=== PATIENT | female | born 1950 | race Caucasian/White ===

== ENCOUNTER 2024-09-20 20:31 | Emergency (ER) | payer OTHER, SELFPAY ==
[2024-09-20 20:31] VITALS: BP 134/83; PULSE 68; RESP 14; TEMP 37.1; O2SAT 98; BMI 22.3
[2024-09-20 22:31] VITALS: BP 123/80; PULSE 70; RESP 20; O2SAT 97
--- NOTE | 2024-09-20 22:34 | CT_ITS ---
PROCEDURE: BRAIN/HEAD WITHOUT CONTRAST 09/20/2024 REASON FOR EXAM: ATAXIA TECHNIQUE: BRAIN/HEAD WITHOUT CONTRAST Coronal and Sagittal reconstruction series were provided. One or more dose reduction techniques were used (e.g., Automated exposure control, adjustment of the mA and/or kV according to patient size, use of iterative reconstruction technique. RADIATION DOSE SUMMARY: CTDlvol: 45.0 mGy DLP: 830 mGycm COMPARISON: None FINDINGS: Brain: No acute intracranial hemorrhage, mass effect, or midline shift. Low density in the periventricular white matter suggests mild chronic small vessel ischemic changes. Basal ganglia calcifications. CSF Spaces: Mild generalized cerebral atrophy Sinuses/Mastoids: Opacification with central calcifications in the left maxillary sinus. No mastoid effusion. Bones: Unremarkable CT/Brain/Head without Contrast IMPRESSION: 1. No acute intracranial abnormality. 2. Left maxillary sinus disease with central calcifications, as could be seen with fungal etiology. Reading Location: [id number]
--- NOTE | 2024-09-20 22:34 | CT_ITS ---
PROCEDURE: ABDOMEN/PELVIS WITHOUT CONT 09/20/2024 REASON FOR EXAM: LEFT FLANK PAIN TECHNIQUE: ABDOMEN/PELVIS WITHOUT CONT Noncontrast technique limits evaluation of the abdominal and pelvic viscera. Coronal and Sagittal reconstruction series were provided. One or more dose reduction techniques were used (e.g., Automated exposure control, adjustment of the mA and/or kV according to patient size, use of iterative reconstruction technique). CTDIvol: 17.0 mGy DLP: 690 mGy-cm COMPARISON: None FINDINGS: Lung bases: Aortic valvular calcification. Bibasilar atelectasis. Liver: Unremarkable Gallbladder: Unremarkable for degree of distention Spleen: Unremarkable Pancreas: Unremarkable Adrenals: Unremarkable Kidneys: No hydronephrosis. There are punctate nonobstructing stones in the right kidney measuring up to 2 mm in size. Ureters: Poorly visualized, without stone identified. Bladder: Unremarkable Reproductive Organs: Unremarkable Bowel: No evidence of obstruction or inflammation on this limited noncontrast evaluation. Visualized portions of the appendix are unremarkable. Lymph nodes: No suspicious lymph node enlargement. Vasculature: Mild diffuse atherosclerotic calcifications are noted. Bones: Degenerative changes of the spine. Grade 1 anterolisthesis of L3 on L4. Soft tissues: There is a lipoma in the proximal right thigh, within or adjacent to the quadriceps musculature. CT/Abdomen/Pelvis without Cont IMPRESSION: Punctate nonobstructing stones in the right kidney measuring up to 2 mm. Other kumar there is no evidence of an acute intra-abdominal abnormality on this limited noncontrast exam. Reading Location: [id number]
[2024-09-20 22:35] VITALS: BP 112/72; PULSE 60; RESP 18; O2SAT 99
--- NOTE | 2024-09-20 22:35 | EKG12_ITS ---
Test Reason : DYSRHYTHMIA Blood Pressure : */* mmHG Vent. Rate : 65 BPM Atrial Rate : 65 BPM P-R Int : 220 ms QRS Dur : 80 ms QT Int : 388 ms P-R-T Axes : 71 50 59 degrees QTcB Int : 403 ms Sinus rhythm with 1st degree A-V block Otherwise normal ECG Confirmed by HAI ESTRADA, NANCY ([id number]), food expeditor LUCIANO GAMBLE ([id number]) on 09/21/2024 11:28:13 AM Referred By: Confirmed By: NANCY VALLES MD
--- NOTE | 2024-09-20 22:36 | EDS_ITS ---
HPI History of Present Illness Chief Complaint: General Illness Informant: patient and family Narrative Narrative: 73-year-old female states she has been feeling poorly and weak for the past 2-3 days although it has varied. It started 2 days ago, she states she was outside in the heat stacking wood and started feeling poorly and so she thought she was overheated. They have not had any air conditioning until last night they finally bought a window unit to put in their house, temperatures were in the mid 90s last day or 2. She said yesterday she felt pretty good, she drank fluid, she had some decreased urination each time she went in volume, but still uri nating throughout the day every day, and not dark. She has had no chest or abdominal pain until the last hour or 2 while waiting here in the ER she developed some left-sided abdominal discomfort that is relatively mild. She vomited once prior to coming here, did not have any abdominal pain when that occurred, but states that off-and-on she has been feeling off balance when she walks. No headache, no vision changes or visual field cuts or diplopia, or eye pain. She states this is just been in the past 2 or 3 days. She was walking fine earlier today and tonight when she is feeling bad, she is off balance again. She denies feeling any dizziness in her head. No earache or hearing changes. No neck pain, back pain, numbness or weakness in an arm or leg. She states she has not had a lot of fluids today, maybe a quart of water. PFSH PFSH Medical History no medical history no medical history Home Medications ?Medication ?Instructions ?Recorded ?Last Taken ?Type ondansetron 8 mg disintegrating 8 mg PO Q8H PRN nausea and 09/21/24 Unknown Rx tablet vomiting #12 tabs Allergy/AdvReac Type Severity Reaction Status Date / Time No Known Allergies Allergy Verified 09/20/24 20:32 Surgical History no surgical history Social History Smoking Status: Never smoker ROS ROS ED Constitutional Constitutional ED: Reports fatigue and weakness; Denies chills, fever(s) or sweats Eyes Eyes: Denies blurry vision, change in vision or diplopia ENT ENT ED: Reports disequillibrium; Denies abnormal hearing, dizziness, ear pain, facial pain, hearing loss, rhinorrhea, sore throat or tinnitus Cardiovascular Cardiovascular: Denies chest pain, palpitations or racing heartbeat Respiratory/Chest Respiratory/Chest: Denies cough or dyspnea Gastrointestinal Gastrointestinal: Reports abdominal pain, nausea and vomiting; Denies diarrhea Genitourinary Genitourinary ED: Denies dysuria or hematuria Musculoskeletal Musculoskeletal: Denies back pain or neck pain Integumentary Denies abscess or rash Neurologic Neurologic: Reports as per HPI and abnormal gait; Denies headache(s), paresthesias or weakness Psychiatric Psychiatric: Denies anxiety or suicidal thoughts EXAM Physical Exam Const Vital Signs: 09/20/24 20:31 09/20/24 21:00 09/20/24 22:31 Temperature 98.7 F Temperature Source Oral Pulse Rate 68 70 Pulse Rate [Lying] Pulse Rate [Sitting (for 1 minute prior to obtaining)] Pulse Rate [Standing (for 1 minute prior to obtaining)] Respiratory Rate 14 20 H Respiratory Effort Normal Non-Labored Respiratory Pattern Normal Blood Pressure 134/83 H 123/80 H Blood Pressure [Lying] Blood Pressure [Sitting (for 1 minute prior to obtaining)] Blood Pressure [Standing (for 1 minute prior to obtaining)] Blood Pressure Mean 100 94 Blood Pressure Mean [Lying] Blood Pressure Mean [Sitting (for 1 minute prior to obtaining)] Blood Pressure Mean [Standing (for 1 minute prior to obtaining)] Pulse Ox 98 97 Oxygen Delivery Method 09/20/24 22:35 09/21/24 00:17 09/21/24 00:19 Temperature Temperature Source Pulse Rate 60 59 L Pulse Rate [Lying] 60 Pulse Rate [Sitting (for 1 minute prior to obtaining)] 67 Pulse Rate [Standing (for 1 minute prior to obtaining)] 71 Respiratory Rate 18 22 H Respiratory Effort Respiratory Pattern Blood Pressure 112/72 120/75 Blood Pressure [Lying] 118/73 Blood Pressure [Sitting (for 1 minute prior to obtaining)] 127/77 H Blood Pressure [Standing (for 1 minute prior to obtaining)] 113/74 Blood Pressure Mean 85 90 Blood Pressure Mean [Lying] 88 Blood Pressure Mean [Sitting (for 1 minute prior to obtaining)] 93 Blood Pressure Mean [Standing (for 1 minute prior to obtaining)] 87 Pulse Ox 99 100 Oxygen Delivery Method Room Air Room Air 09/21/24 01:23 Temperature Temperature Source Pulse Rate 64 Pulse Rate [Lying] Pulse Rate [Sitting (for 1 minute prior to obtaining)] Pulse Rate [Standing (for 1 minute prior to obtaining)] Respiratory Rate 18 Respiratory Effort Respiratory Pattern Blood Pressure 115/76 Blood Pressure [Lying] Blood Pressure [Sitting (for 1 minute prior to obtaining)] Blood Pressure [Standing (for 1 minute prior to obtaining)] Blood Pressure Mean 89 Blood Pressure Mean [Lying] Blood Pressure Mean [Sitting (for 1 minute prior to obtaining)] Blood Pressure Mean [Standing (for 1 minute prior to obtaining)] Pulse Ox 98 Oxygen Delivery Method Room Air Positive well nourished and well developed General Appearance ED: well developed and NAD HEENT Reports moist mucous membranes normocephalic and atraumatic Eyes PERRL and EOMs intact bilaterally Eyes Narrative: Normal visual field exam Neck full ROM and supple Chest Wall inspection of chest normal and palpation of chest normal Resp normal respiratory effort and clear to auscultation bilaterally Cardio regular rate, regular rhythm and no murmurs Rate: Negative for tachycardic GI non-tender and non-distended GI Narrative: Mild left sided abdominal pain not reproducible and without any tenderness or pulsatile mass. Auscultation: normoactive bowel sounds Palpation: soft Back/Spine no CVA tenderness General Back: other FROM Extremity normal to inspection Extremity Narrative: Intact distal pulses x 4 General Extremety ED: Negative for edema, pulses abnormal or tenderness General Extremity: Negative for edema or pulses abnormal Neuro oriented x3, CN's II-XII intact bilaterally and no sensory deficits noted Neuro Narrative: Patient is mildly ataxic with walking. She can make it across and down the [place] without any significant assistance, catches herself. She does not have a shuffling gait. She has normal central and peripheral neurologic exams, and normal speech. She is somewhat ataxic with regards to the right lower extremity, gaining her 1 on the NIHSS, but she otherwise score is 0. Sensorium / Orientation: awake and alert Motor Exam: strength 5/5 throughout Psych mental status grossly normal Skin no rashes or lesions noted and no wounds MDM MDM MDM Narrative Medical decision making narrative: Patient has some fairly nonspecific generalized symptoms as well as ataxia which is unusual. For these latter reasons I obtained a CT of the head/brain, I revi ewed the images and the report which I agree with, it shows no acute [employer] abnormality but it does show some maxillary sinus abnormalities that may indicate a fungal sinusitis. There are calcifications, and this appears chronic. I suggest likely incidental, and should not be causing her ataxia. She does not have symptoms of an acute bacterial sinusitis. With regards to her labs they are all normal, white blood count is 6, 2 sequential troponin measurements are normal along with an EKG that is normal except for first-degree AV block, liver enzymes and lipase are unremarkable except for a slightly abnormal AST at 36 which is very nonspecific. Urinalysis shows some proteinuria but is otherwise unremarkable negative for infection. Two-view chest x-ray negative for pneumonia on my interpretation of radiology was in agreement. Also sent her for a CT of the abdomen/pelvis, which shows no acute ureterolithiasis or reason for renal/ureteral colic. There are a couple of nonobstructing right kidney stones that are not causing symptoms right now and the CT is negative for any other acute abnormality also. In the meantime she was given IV fluids and some Zofran. On reexamination she is feeling much better and states that her balance felt back to normal. At this time they tell me that the patient had a temperature over 102 last night. She is afebrile here and her vital signs are normal. Differential includes heat illness as well as viral gastritis. For now I think supportive care and staying cool and hydrated is the best plan but I think she can be discharged home to follow-up as an outpatient, I do not think she is having heatstroke as she is alert and oriented x 3. Lab Data Attestation: I reviewed the patient's lab results. Labs: Laboratory Results - last 24 hr 09/20/24 09/20/24 09/21/24 21:10 23:10 00:09 WBC 6.0 RBC 4.10 L Hgb 11.5 L Hct 36.0 L MCV 87.8 MCH 28.0 MCHC 31.9 L RDW Std Deviation 46.2 H RDW Coeff of Tasha 14.3 Plt Count 266 MPV 10.1 Immature Gran % (Auto) 0.300 Neut % (Auto) 77.0 H Lymph % (Auto) 8.2 L Mckenzie % (Auto) 13.8 H Eos % (Auto) 0.2 Baso % (Auto) 0.5 Absolute Neuts (auto) 4.6 Absolute Lymphs (auto) 0.49 L Nucleated RBC % 0 Sodium 133 Potassium 4.2 Chloride 98 Carbon Dioxide 23.8 Anion Gap 12 BUN 13 Creatinine 0.72 Estim Creat Clear Calc 52.58 Est GFR (MDRD) Non-Af 89 BUN/Creatinine Ratio 18.2 Glucose 164 H Calcium 9.0 Total Bilirubin 0.29 AST 36 H ALT 23 Alkaline Phosphatase 81 Troponin T High Sens < 6 Troponin T Hi Sens 2 Hr 6 Total Protein 7.3 Albumin 3.7 Globulin 3.6 Albumin/Globulin Ratio 1.0 Lipase 34 Urine Color Yellow Urine Clarity Clear Urine pH 6.0 Ur Specific Fowler 1.020 Urine Protein 30 H Urine Glucose (UA) Normal Urine Ketones Negative Urine Occult Blood Negative Urine Nitrite Negative Urine Bilirubin Negative Urine Urobilinogen Normal Ur Leukocyte Esterase Negative Urine RBC 0 SEEN Urine WBC 0 SEEN Ur Squamous Epith Cells 0 SEEN Urine Bacteria 1+ Urine Mucus 0 SEEN Radiography Diagnostic Testing: Clinical Impression(s) from Imaging Studies Abdomen/Pelvis CT 09/20/24 22:34 IMPRESSION: Punctate nonobstructing stones in the right kidney measuring up to 2 mm. Otherwise there is no evidence of an acute intra-abdominal abnormality on this limited noncontrast exam. Reading Location: [id number] Brain CT 09/20/24 22:34 IMPRESSION: 1. No acute intracranial abnormality. 2. Left maxillary sinus disease with central calcifications, as could be seen with fungal etiology. Reading Location: [id number] Chest X-Ray 09/20/24 23:15 IMPRESSION: No acute cardiopulmonary abnormality. Reading Location: [facility] Rhythm Strip Rhythm Strip: Sinus Rhythm Rate: 65 Ectopy: None EKG Initial EKG: Attestation: I personally reviewed and interpreted this EKG as follows: Interpretation: Sinus Rhythm and No Acute Injury Pattern Comments: Nml axis & intervals except for first-degree AV block; nml EKG Discharge Plan Triage Chief Complaint: General Illness ED Provider: Bryant Boogie Dx/Rx/DC Orders Clinical Impression: Generalized weakness, Nausea and vomiting, Fever, Intermittent ataxia, Chronic left maxillary sinusitis, Right nephrolithiasis, Left sided abdominal pain of unknown cause Instructions: ED Gastritis (Adult), ED Heat Exhaustion Prescriptions: New ondansetron 8 mg tablet,disintegrating 8 mg PO Q8H PRN (Reason: nausea and vomiting) Qty: 12 0RF Primary Care Provider: Johnson Jauregui Referrals: Zachary Estrada MD [Non-Staff] - As soon as possible Activity Restrictions/Additional Instructions: CT of your abdomen was normal except for some small incidental stones in her right kidney. CT of your brain/head was unremarkable except for what looks like chronic appearing sinusitis of the left maxillary sinus, with some ca lcifications that could be fungal but more testing would be needed to see if that is the case and if it needs to be treated with anything. Follow-up with your doctor. It is possible that your recent symptoms have been related to the stomach flu which is usually viral and will go away on its own, or heat illness. At this time the treatment for both would be the prescription for nausea as needed along with staying cool and drinking plenty of fluids. Print Language: Kiswahili Disposition Disposition: Home, Self Care
[2024-09-20 22:55] LABS: Absolute Lymphocyte Count 0.49 X10^3/uL (0.83-4.51); Absolute Neutrophil Count 4.6 X10^3/uL (2.0-7.7); Basophil# 0.03 X10^3/uL; Basophil% 0.5 % (0-1); Eosinophil# 0.01 X10^3/uL; Eosinophils% 0.2 % (0-5); Hemoglobin 11.5 g/dL (12.0-15.0); Lymphocyte # 0.49 X10^3/ul (0.83-4.51); Lymphocyte % 8.2 % (19-41); Mean Corp Hgb Conc 31.9 g/dL (32-36); Mean Corpuscular Volume 87.8 fL (81-99); Mean Platelet Vol. 10.1 fl (6.2-12.0); Monocyte# 0.83 X10^3/uL; Monocyte% 13.8 % (0-10); NRBC Flagged by Analyzer 0 % (0-5); Neutrophil # 4.63 X10^3/uL (2.7-7.7); POSITIVE DIFFERENTIAL YES; Platelet Count 266 K/mm3 (150-450); RBC Distribution Width CV 14.3 % (11.6-14.6); RBC Distribution Width SD 46.2 fl (35.1-43.9)
[2024-09-20] MEDS: 0.9% Normal Saline (1000mL) 1,000 ML 1000 ML IV (23:02)
[2024-09-20] MEDS: Ondansetron 4 MG/2 ML Vial IV (23:02)
--- NOTE | 2024-09-20 23:15 | RAD_ITS ---
PROCEDURE: CHEST PA AND LATERAL 09/20/2024 REASON FOR EXAM: WEAKNESS TECHNIQUE: CHEST PA AND LATERAL COMPARISON: None FINDINGS: Hardware: None Heart: The heart size is normal. Mediastinum: The mediastinal contour is unremarkable. Aortic atherosclerosis. Lungs: No focal consolidation or pleural effusion. Bones: Degenerative changes are identified within the thoracic spine. RAD/Chest PA and Lateral IMPRESSION: No acute cardiopulmonary abnormality. Reading Location: [id number]
[2024-09-20 23:21] LABS: Troponin T High Sensitivity < 6 ng/L (<=14)
[2024-09-20 23:22] LABS: Mucous, Urine 0 SEEN /hpf (<or=2+); Red Blood Cells-Urine 0 SEEN /hpf (0-5); Squamous Epithelial Cells - UA 0 SEEN /hpf (5-10); White Blood Cells 0 SEEN /hpf (0-5)
[2024-09-20 23:23] LABS: AST(SGOT) 36 U/L (<=31); Alanine Aminotransfer ALT/SGPT 23 U/L (<=34); Albumin, Serum 3.7 g/dL (3.4-4.8); Alkaline Phosphatase 81 U/L (35-104); Anion Gap 12 (5-15); BUN 13 mg/dL (4-19); BUN/Creat Ratio 18.2 RATIO (10-20); Carbon Dioxide 23.8 mmol/L (21.0-32.0); Chloride 98 mmol/L (98-108); Creatinine, Serum 0.72 mg/dL (0.70-1.20); EST Glomerular Filtration Rate 89 (>60); Estimated Creatinine Clearance 52.58 ml/min (50-250); Globulin 3.6 g/dL (2.2-4.2); Glucose 164 mg/dL (70-99); Lipase 34 U/L (13-75); Potassium 4.2 mmol/L (3.3-5.1); Protein, Total 7.3 g/dL (5.9-8.4); Sodium Level 133 mmol/L (133-145); Total Bilirubin 0.29 mg/dL (0.00-1.30)
[2024-09-20 23:33] LABS: Color, Urine Yellow (Yellow); Glucose, Dipstick Normal (Normal); Ketone-Dipstick Negative (Negative); Leukocyte Esterase-Dipstick Negative /ul (Negative); Nitrite-Dipstick Negative (Negative); Occult Blood-Urine Negative /ul (Negative); Protein-Dipstick 30 mg/dl (Negative); Urine Bilirubin Dipstick Negative (Negative); Urine Clarity Clear (Clear); Urine Urobilinogen Normal (Normal)
[2024-09-21 00:17] VITALS: BP 113/74; BP 118/73; BP 127/77; PULSE 60; PULSE 67; PULSE 71
[2024-09-21 00:19] VITALS: BP 120/75; PULSE 59; RESP 22; O2SAT 100
[2024-09-21 00:21] LABS: Bacteria 1+ /hpf (None Seen)
[2024-09-21 01:12] LABS: Troponin T High Sens 2 HR 6 ng/L (<=14)
[2024-09-21 01:23] VITALS: BP 115/76; PULSE 64; RESP 18; O2SAT 98
[2024-09-21 03:00] VITALS: BP 112/68; PULSE 53; RESP 15; O2SAT 100
[2024-09-21 03:02] VITALS: BP 111/79; PULSE 55; RESP 14; TEMP 36.6; O2SAT 100
[2024-09-21 03:21] LABS: Troponin T High Sens 4 HR 7 ng/L (<=14)
== END 2024-09-21 03:16 | disposition home or self-care (01) ==
PROVIDERS: Emergency Provider Emergency Medicine; PCP Physician Assistant Surgical; Visit Provider Emergency Medicine
DX: R53.1 Weakness (principal); R11.2 Nausea with vomiting, unspecified; N20.0 Calculus of kidney; J32.0 Chronic maxillary sinusitis; R50.9 Fever, unspecified; R27.0 Ataxia, unspecified; R10.9 Unspecified abdominal pain
CPT/HCPCS: 70450; 71046; 74176; 80053; 81001; 83690; 84484; 85025; 93005; 96361; 96374; 99285; A4216; J2405

== ENCOUNTER 2024-09-27 13:07 | Observation (INO) | payer OTHER, SELFPAY ==
[2024-09-27 13:08] VITALS: BP 117/75; PULSE 85; RESP 20; TEMP 36.8; O2SAT 98
[2024-09-27 13:13] VITALS: BP 117/75; PULSE 85; RESP 20; TEMP 36.8; O2SAT 98
--- NOTE | 2024-09-27 13:18 | EX.ED.DYSGE1 ---
HPI History of Present Illness Chief Complaint: Fatigue PFSH PFSH Medical History Depression Kidney stones Non-smoker Home Medications ?Medication ?Instructions ?Recorded ?Last Taken ?Type ascorbate calcium (vitamin C) 500 500 mg PO QDAY 09/27/24 09/27/24 History mg tablet aspirin 81 mg tablet,delayed 81 mg PO DAILY 09/27/24 09/26/24 History release (Adult Aspirin Regimen) doxycycline hyclate 100 mg capsule 100 mg PO BID 09/27/24 09/27/24 History multivitamin (Daily Multi-Vitamin 1 tab PO DAILY 09/27/24 09/27/24 History tablet) ondansetron 4 mg disintegrating 4 mg PO Q8H PRN PRN nausea 09/27/24 Unknown History tablet selenium 200 mcg capsule 200 mcg PO DAILY 09/27/24 09/27/24 History zinc acetate 25 mg (zinc) capsule 25 mg PO QDAY 09/27/24 09/27/24 History (Galzin) Allergy/AdvReac Type Severity Reaction Status Date / Time No Known Allergies Allergy Verified 09/27/24 13:08 Social History Smoking Status: Never smoker EXAM Physical Exam Const Vital Signs: 09/27/24 13:08 09/27/24 13:13 09/27/24 13:13 Temperature 98.3 F 98.3 F Temperature Source Oral Oral Pulse Rate 85 85 Respiratory Rate 20 H 20 H Respiratory Effort Normal Respiratory Pattern Normal Blood Pressure 117/75 117/75 Blood Pressure Mean 89 89 Pulse Ox 98 98 Oxygen Delivery Method Room Air Room Air MDM MDM MDM Narrative Medical decision making narrative: HISTORY OF PRESENT ILLNESS: Chief complaint: Diffuse weakness, fatigue 73-year-old female presents with diffuse weakness. Sent by PCP. Notes recent diagnosis of Lyme disease. PCP wants admitted for Lyme disease and poor outpatient improvement in symptoms. m patient notes diffuse weakness. Difficulty with ambulation and concern for risk of falling. She is, by her who states patient not safe at home. States he is not getting better and states PCP thought could be beneficial for you IV antibiotics and to be admitted REVIEW OF SYSTEMS: Pertinent positives: Diffuse weakness Pertinent negatives: Headache, chest pain, shortness breath, cough, fever, urinary complaint PHYSICAL EXAM: Nursing triage notes reviewed, Vital signs reviewed Constitutional: please see mdm HENT: MMM Eyes: Pupils equal round and reactive to light, Extraocular muscles intact Neck: No stridor, no JVD, full neck ROM Lungs: Clear to auscultation, No wheezing or rales. No increased work of breathing, no conversational dyspnea, no accessory muscle use, no nasal flaring. No respiratory distress noted Heart: Regular rate and rhythm, No murmurs, No rubs and No gallops, 2+ distal pulses (radial, femoral, posterior tibial) in all extremities Abdomen: Soft, there is no tenderness, rigidity, rebound or guarding, no obvious peritoneal signs, no palpable pulsatile abdominal masses, no auscultated abdominal bruit : No CVAT Extremities: No edema Neuro: My neuroexam Skin: No rash or lesions noted MEDICAL DECISION MAKING: Chief Complaint: please see HPI External records reviewed: Reviewed ED visit from 09/20/2024. At this visit she received a CT scan of pelvis, CT head of the brain, chest x-ray was also negative. CBC with no cytosis, no anemia, no thrombocytopenia. BMP without evidence of significant electrolyte abnormalities, no anion gap, no acute kidney injury. LFTs show no evidence of hepatobiliary pathology. High-sensitivity troponin is negative, no evidence of myocardial ischemia x 3. Lipase is wnl indicating no pancreatic inflammation. Urinalysis shows no evidence of urinary inflammation suggestive of UTI Reviewed PCP visit from today. Dr. Tobias recommended patient be admitted for IV therapy. Factors affecting care: none Social determinants of health: none History obtained from others: Consults: internal medicine (Dr. Russell) who agreed to admit the patient MDM Narrative: The patient was initially hemodynamically stable, afebrile and nontoxic-appearing. No focal neurologic deficits. No focal cardiopulmonary abnormalities. Abdomen soft and nontender. Patient appears fatigued but not toxic. I considered the following differential diagnosis: CVA, electrolyte disturbance, anemia, dehydration, ACS, disseminated Lyme The patient's history and physical exam not consistent with acute CVA she has nonfocal neuroexam. NIH of 0. No indication for advanced imaging the brain at this time. I obtained a lab workup to further determine if the patient was suffering from a life-threatening etiology. ALL IMAGES (IF OBTAINED) HAVE BEEN PERSONALLY REVIEWED AND INTERPRETED BY MYSELF. EKG normal sinus rhythm rate of 72, normal axis, normal intervals, no STEMI High-sensitivity troponin is negative, no evidence of myocardial ischemia CBC without leukocytosis, severe anemia, no thrombocytopenia. BMP without evidence of significant electrolyte abnormalities, no anion gap, no acute kidney injury. The synthesis of the patient's history, physical exam, labs images suggest no acute life-threatening etiology. I have a low suspicion for disseminated Lyme at this time as patient has no focal neurologic deficits. EKG has normal intervals. Gave empiric ceftriaxone given patient's gait abnormality and need for hospitalization for PT OT possible placement. The patient and/or family, caregivers express understanding. The patient and/or family, caregivers agrees with the plan. Shared decision making: I will have a discussion with the patient and or visitors regarding risk/benefits of further testing or admission. They will be made aware of of the risk/benefits inherent in this decision they will be given the opportunity to voice understanding. Total critical care time today provided was at least 0 minutes. This excludes separately billable procedures. Critical care time (if documented) is secondary to the patient having high probability of clinically significant/life threatening deterioration in the patient's condition which required my urgent intervention. Impression: 1. Fatigue 2. Gait abdomen 3. Lyme disease Dispo: Admit to hospital This note was generated with [facility] ([employer]) dictation software. It may contain incorrect words, spelling, and punctuation that were not noted in review of the chart prior to signing. Lab Data Labs: Laboratory Results - last 24 hr 09/27/24 13:30 WBC 7.9 RBC 4.43 Hgb 12.4 Hct 38.9 MCV 87.8 MCH 28.0 MCHC 31.9 L RDW Std Deviation 44.7 H RDW Coeff of Tasha 13.9 Plt Count 518 H MPV 8.8 Immature Gran % (Auto) 2.800 H Neut % (Auto) 62.3 Lymph % (Auto) 21.6 [place] % (Auto) 9.0 Eos % (Auto) 3.2 Baso % (Auto) 1.1 H Absolute Neuts (auto) 4.9 Absolute Lymphs (auto) 1.71 Nucleated RBC % 0 Sodium 139 Potassium 4.4 Chloride 101 Carbon Dioxide 25.9 Anion Gap 12 BUN 15 Creatinine 0.62 L Est GFR (MDRD) Non-Af 95 BUN/Creatinine Ratio 24.8 H Glucose 121 H Calcium 9.7 Troponin T High Sens 10 D Discharge Plan Triage Chief Complaint: Fatigue ED Provider: Denny Liang Dx/Rx/DC Orders Prescriptions: No Action doxycycline hyclate 100 mg capsule 100 mg PO BID ondansetron 4 mg tablet,disintegrating 4 mg PO Q8H PRN PRN (Reason: nausea) ascorbate calcium (vitamin C) 500 mg tablet 500 mg PO QDAY Galzin 25 mg (zinc) capsule 25 mg PO QDAY selenium 200 mcg capsule 200 mcg PO DAILY multivitamin [Daily Multi-Vitamin] Tablet 1 tab PO DAILY aspirin [Adult Aspirin Regimen] 81 mg tablet,delayed release (DR/EC) 81 mg PO DAILY Primary Care Provider: Stefan Tobias Referrals: Stefan Tobias MD [Primary Care Provider] - Print Language: Panamanian
--- NOTE | 2024-09-27 13:24 | EKG12_ITS ---
Test Reason : ARRYTH Blood Pressure : */* mmHG Vent. Rate : 72 BPM Atrial Rate : 72 BPM P-R Int : 198 ms QRS Dur : 80 ms QT Int : 386 ms P-R-T Axes : 82 43 60 degrees QTcB Int : 422 ms Normal sinus rhythm Normal ECG Confirmed by HAI ESTRADA, NANCY ([id number]), editor [employer] ([id number]) on 09/28/2024 1:37:45 PM Referred By: Confirmed By: NANCY VALLES MD
[2024-09-27 13:40] LABS: Hematocrit 38.9 % (37-47); Hemoglobin 12.4 g/dL (12.0-15.0); Immature Granulocytes Count 0.220 X10^3/uL (0.0-0.0); Mean Corp Hgb Conc 31.9 g/dL (32-36); Mean Corpuscular Volume 87.8 fL (81-99); Mean Platelet Vol. 8.8 fl (6.2-12.0); NRBC Flagged by Analyzer 0 % (0-5); Platelet Count 518 K/mm3 (150-450); RBC Distribution Width CV 13.9 % (11.6-14.6); RBC Distribution Width SD 44.7 fl (35.1-43.9); Red Blood Count 4.43 M/mm3 (4.2-5.4); White Blood Count 7.9 K/mm3 (4.4-11.0)
[2024-09-27] MEDS: Ceftriaxone 2 GM in 0.9% Normal Saline (50mL MB+) 50 ML IV (13:42)
[2024-09-27 14:07] LABS: Anion Gap 12 (5-15); BUN 15 mg/dL (4-19); BUN/Creat Ratio 24.8 RATIO (10-20); Calcium,Total 9.7 mg/dL (7.6-11.0); Carbon Dioxide 25.9 mmol/L (21.0-32.0); Chloride 101 mmol/L (98-108); Glucose 121 mg/dL (70-99); Potassium 4.4 mmol/L (3.3-5.1)
[2024-09-27 14:09] LABS: Troponin T High Sensitivity 10 ng/L (<=14)
[2024-09-27] MEDS: 0.9% Normal Saline (1000mL) 1,000 ML 999 ML IV (14:15)
[2024-09-27 14:40] VITALS: BMI 22.1
--- NOTE | 2024-09-27 14:40 | ED.RN ---
Per Dr. Liang, cancel sepsis screen
--- NOTE | 2024-09-27 14:44 | HP.PCM.HOS_ITS ---
HPI - General HPI Narrative IFEANYI SUAREZ, is a 73 F who presents [facility] Home Medications ?Medication ?Instructions ?Recorded ?Last Taken ?Type ascorbate calcium (vitamin C) 500 500 mg PO QDAY 09/2709/27/24 History mg tablet aspirin 81 mg tablet,delayed 81 mg PO DAILY 09/27/24 0 09/26/24 History release (Adult Aspirin Regimen) doxycycline hyclate 100 mg capsule 100 mg PO BID 09/2709/27/24 History multivitamin (Daily Multi-Vitamin 1 tab PO DAILY 09/2709/27/24 History tablet) ondansetron 4 mg disintegrating 4 mg PO Q8H PRN PRN na usea 09/27/24 Unknown History tablet selenium 200 mcg capsule 200 mcg PO DAILY 09/27/24 History zinc acetate 25 mg (zinc) capsule 25 mg PO QDAY 09/27/24 History (Galzin) Allergy/AdvReac Type Severity Reaction Status Date / Time No Known Allergies Allergy Verified 09/27/24 13:08 Social History Smoking Status: Never smoker Vital Signs Vital Signs Vital Signs: 09/27/24 13:08 09/27/24 13:13 09/27/24 13:13 Temperature 98.3 F 98.3 F Temperature Source Oral Oral Pulse Rate 85 85 Respiratory Rate 20 H 20 H Respiratory Effort Normal Respiratory Pattern Normal Blood Pressure 117/75 117/75 Blood Pressure Mean 89 89 Pulse Ox 98 98 Oxygen Delivery Method Room Air Room Air Weight Weight: 56.7 kg Body Mass Index (BMI) 22.1 Results Lab / Micro Data 09/27/24 13:30 09/27/24 13:30 Labs: Laboratory Results - last 24 hr 09/27/24 13:30: WBC 7.9, RBC 4.43, Hgb 12.4, Hct 38.9, MCV 87.8, MCH 28.0, MCHC 31.9 L, RDW Std Deviation 44.7 H, RDW Coeff of Tasha 13.9, Plt Count 518 H, MPV 8.8, Immature Gran % (Auto) 2.800 H, Neut % (Auto) 62.3, Lymph % (Auto) 21.6, [place] % (Auto) 9.0, Eos % (Auto) 3.2, Baso % (Auto) 1.1 H, Absolute Neuts (auto) 4.9, Absolute Lymphs (auto) 1.71, Nucleated RBC % 0, Sodium 139, Potassium 4.4, Chloride 101, Carbon Dioxide 25.9, Anion Gap 12, BUN 15, Creatinine 0.62 L, Est GFR (MDRD) Non-Af 95, BUN/Creatinine Ratio 24.8 H, Glucose 121 H, Calcium 9.7, T roponin T High Sens 10 D
--- NOTE | 2024-09-27 14:44 | PCM.HP.STD ---
HPI - General General Date of Admission: 09/27/24 Date of Service: 09/27/24 Chief Complaint: Weakness with recent Lyme diagnosis HPI Narrative IFEANYI SUAREZ, is a 73 F who presented to [facility] ED on 09/27/2024 with worsening weakness and recent Lyme diagnosis. Patient is [employer], lives at home with her sister. Typically is very active at baseline. She initially came to our ED on 09/20 with 2 to 3-day history of feeling weak and fatigued. Had extensive workup including CT brain, CT abdomen pelvis, chest x-ray and lab workup that was all essentially unremarkable. She was mildly unsteady on her feet but was able to ambulate, so she was discharged home from the ED. She saw her PCP on Sunday 09/24 and had further lab work done, and according to patient her testing was positive for Lyme disease on Friday. She started p.o. doxycycline on Friday. However, she has continued to be weak and unsteady with ambulation and fears falling, so her PCP recommended she come to the ED today for further evaluation and consideration of IV antibiotics. In the ED she was hemodynamically stable on room air at rest and afebrile. CBC and BMP were fairly benign. EKG showed normal sinus rhythm with no CT interval prolongation or other concerning findings. She had no reported focal neurologic findings. Given her worsening weakness and concern for being safe at home as well as concern for worsening manifestations of Lyme disease, hospitalist was contacted for admission. I saw the patient at bedside in the ED, brother was present. Patient was fatigued appearing but otherwise laying back comfortably in bed, conversing normally and in no acute distress. She had good strength in her upper and lower extremities bilaterally on neurologic exam. She noted that she had been eating and drinking fairly well over the past several days. She denied any specific joint pains or joint erythema or swelling. No other acute concerns currently. [facility] Medical History Depression Kidney stones Non-smoker Home Medications ?Medication ?Instructions ?Recorded ?Last Taken ?Type ascorbate calcium (vitamin C) 500 500 mg PO QDAY 09/27/24 09/27/24 History mg tablet aspirin 81 mg tablet,delayed 81 mg PO DAILY 09/27/24 09/26/24 History release (Adult Aspirin Regimen) doxycycline hyclate 100 mg capsule 100 mg PO BID 09/27/24 09/27/24 History multivitamin (Daily Multi-Vitamin 1 tab PO DAILY 09/27/24 09/27/24 History tablet) ondansetron 4 mg disintegrating 4 mg PO Q8H PRN PRN nausea 09/27/24 Unknown History tablet selenium 200 mcg capsule 200 mcg PO DAILY 09/27/24 09/27/24 History zinc acetate 25 mg (zinc) capsule 25 mg PO QDAY 09/27/24 09/27/24 History (Galzin) Allergy/AdvReac Type Severity Reaction Status Date / Time No Known Allergies Allergy Verified 09/27/24 13:08 Social History Smoking Status: Never smoker ROS Constitutional Constitutional: Reports fatigue, malaise and weakness; Denies chills or fever(s) Eyes Eyes: Denies change in vision Cardiovascular Cardiovascular: Denies chest pain, dyspnea on exertion, edema, lightheadedness or palpitations Respiratory/Chest Respiratory/Chest: Denies cough or shortness of breath at rest Gastrointestinal Gastrointestinal: Denies abdominal pain, constipation, diarrhea, nausea or vomiting Genitourinary Genitourinary: Denies dysuria Musculoskeletal Musculoskeletal: Denies arthralgias, joint pain, joint stiffness, joint swelling or myalgias Neurologic Neurologic: Reports abnormal gait; Denies dizziness, focal weakness, headache(s), numbness or tingling Vital Signs Vital Signs Vital Signs: 09/27/24 13:08 09/27/24 13:13 09/27/24 13:13 Temperature 98.3 F 98.3 F Temperature Source Oral Oral Pulse Rate 85 85 Respiratory Rate 20 H 20 H Respiratory Effort Normal Respiratory Pattern Normal Blood Pressure 117/75 117/75 Blood Pressure Mean 89 89 Pulse Ox 98 98 Oxygen Delivery Method Room Air Room Air Weight Weight: 56.7 kg Body Mass Index (BMI) 22.1 Physical Exam Const alert, oriented x3, no apparent distress and average body habitus Constitutional Narrative: Elderly female, fatigued appearing but otherwise sitting back comfortably in bed, conversing normally, in no acute distress. General Appearance: cooperative and comfortable HEENT normocephalic, head/scalp atraumatic, hearing grossly normal bilaterally, nasal mucous membranes and turbinates normal and moist oral mucous membranes Eyes PERRL, EOMs intact bilaterally and conjunctivae normal Neck full ROM Chest inspection of chest normal Resp normal respiratory effort, normal air movement, no use of accessory muscles and clear to auscultation bilaterally Cardio regular rate, regular rhythm, no murmurs and peripheral pulses 2+ throughout GI normal to inspection, nondistended, normoactive bowel sounds, soft to palpation, non-tender and non-distended Back/Spine normal ROM Extremity normal to inspection, full ROM and no pedal edema Skin Skin Narrative: No rashes concerning for erythema migrans noted throughout. Neuro oriented x3, CN's II-XII intact bilaterally, moves all extremities and no focal motor deficits Speech: speech normal Motor Exam: strength 5/5 throughout Psych mental status grossly normal Results Lab / Micro Data 09/27/24 13:30 09/27/24 13:30 Labs: Laboratory Results - last 24 hr 09/27/24 13:30: WBC 7.9, RBC 4.43, Hgb 12.4, Hct 38.9, MCV 87.8, MCH 28.0, MCHC 31.9 L, RDW Std Deviation 44.7 H, RDW Coeff of Tasha 13.9, Plt Count 518 H, MPV 8.8, Immature Gran % (Auto) 2.800 H, Neut % (Auto) 62.3, Lymph % (Auto) 21.6, [place] % (Auto) 9.0, Eos % (Auto) 3.2, Baso % (Auto) 1.1 H, Absolute Neuts (auto) 4.9, Absolute Lymphs (auto) 1.71, Nucleated RBC % 0, Sodium 139, Potassium 4.4, Chloride 101, Carbon Dioxide 25.9, Anion Gap 12, BUN 15, Creatinine 0.62 L, Est GFR (MDRD) Non-Af 95, BUN/Creatinine Ratio 24.8 H, Glucose 121 H, Calcium 9.7, Troponin T High Sens 10 D Assessment & Plan Assessment/Plan (1) Generalized weakness: (2) Lyme disease: PLAN: Plan Patient is a 73-year-old female who presented to [facility] on 09/27/2024 with worsening weakness and recent Lyme diagnosis. 1. Worsening generalized weakness with reported recent Lyme disease diagnosis ? Admit under observation status to [facility] with telemetry. PT/OT/case management consulted. Lives at home with sister, typically has good functional status at baseline. Reportedly had Lyme testing drawn on Sunday 09/24 by PCP that showed a positive result on 09/25. Patient has no overt manifestations of disseminated Lyme disease at this time. Neurologically intact. EKG with normal sinus rhythm, no CT prolongation or other abnormalities. No joint swelling, erythema or tenderness to palpation noted throughout. No rashes noted. Patient denies known tick bite. Given her reported lack of improvement, will opt to treat with IV doxycycline for now and monitor cardiac telemetry overnight. If patient remains stable tomorrow, low threshold to transition back to p.o. doxycycline. Can consider sending Lyme disease testing here but discussed with lab and this will take several days to result. Patient would prefer home as opposed to SNF placement on discharge. Appreciate therapy recommendations. 2. Mild normocytic anemia ? Hemoglobin 12.4, MCV 87 on admit. Hemoglobin was 11.5 on 09/20. Will send iron studies with ferritin, folate and vitamin B12 studies for further evaluation. Notably was given 1 L of IV fluids in the ED. Follow-up a.m. CBC. DVT prophylaxis: Lovenox CODE STATUS: Full code, verified Expected disposition: Likely home with [facility], 1 to 2 days Total clinical time spent by myself addressing the patient's medical issues, reviewing all the data, and collaborating with patient's care team: 55 minutes. Charges/Coding Visit Charges Inpatient E&M: 91783 Init Hosp L2
[2024-09-27 14:57] VITALS: BP 138/66; PULSE 81; RESP 16; TEMP 36.4; O2SAT 94
--- NOTE | 2024-09-27 15:23 | CASEMGMT ---
Care Management Face to Face with patient for initial transition planning/care coordination assessment in the ED.? This scientific writer introduced self and role at [facility]. Patient alert and oriented. Patient willing to participate in assessment and is able to answer all questions appropriately.? Care providers, pharmacy, and demographics verified. Admitting Diagnosis: Fatigue Other diagnosis history: ?kidney stones PCP: ?Jatinder Specialists: none Preferred Pharmacy: [facility] Insurance: ?[employer] Prescription Benefit: no Living Will/HPOA: ?no LNOK: Brother Living Arrangements: ?patient lives in a ranch home, stated she can complete ADLs when she has the energy.? States sister can help as needed Transportation: ?drivers DME: ?cane, walker, wheelchair, shower bench HHC: ?none SNF/Rehab: ?none Community Resources: ? Behavioral Health History: ?Depression Patient goals: Patient wishes to discharge home, denies need for home health care at this time. Patient denies any further needs or concerns at this time. Disposition Plan: admission to acute; RN CM/SW to follow for discharge planning needs that may arise. Courtney Mullen, RETORT OR CONDENSER PRESS OPERATOR, PILE DRIVING TECHNICIAN
[2024-09-27 15:29] VITALS: BP 122/78; PULSE 71; RESP 18; TEMP 36.7; O2SAT 97
[2024-09-27 15:30] VITALS: BMI 22.1
[2024-09-27 15:54] VITALS: PULSE 63
[2024-09-27 17:14] LABS: Ferritin 54 ng/mL (22-378); Iron 25 ug/dL (50-170); Iron Binding Capacity,Total 319 ug/dL (250-450); Iron Binding Capacity,Unsat 294 ug/dL (228-428); Vitamin B12 1633 pg/mL (180-914)
[2024-09-27] MEDS: 0.9% Saline Lock 10 ML Syringe IV (17:41)
[2024-09-27] MEDS: Doxycycline 100 MG in 0.9% Normal Saline (250mL Bag) 250 ML 250 MG IV (17:41)
[2024-09-27 18:04] LABS: Troponin T High Sens 2 HR 6 ng/L (<=14)
[2024-09-27 18:56] LABS: Troponin T High Sens 4 HR 7 ng/L (<=14)
[2024-09-27 20:33] VITALS: BP 116/72; PULSE 63; RESP 16; TEMP 36.7; O2SAT 98
--- OUTSIDE RECORDS SUMMARY | 2024-09-27 23:54 | XMS RPT_ITS | CCD ---
Author Organization [facility] Care Team Providers Care Rockboard Lather Name Role Phone Owen Brown Unavailable Johnson Rutledge Primary Care Provider [phone] Chuyita ESTRADA, Dr. Hurtado Emergency Provider FRANDY ESTRADA, Iman COVARRUBIAS Unavailable KUNALOWEN Unavailable JAVAD ESTRADA, TINO Bradley Unavailable [phone] Brendan DELGADO, Angie Unavailable Unavailable MIGUEL ÁNGEL DELGADO, ANNA Unavailable Unavailable SHIRAZ DELGADO, AFIA Unavailable Unavaila julien ISSA POLICY INTERN-C, ADRIAN Vee Unavailable Unav emelynable IBRAHIMA POLICY INTERN-BC, DINO Valerio Unavailable [phone] Palmira ALEXANDRA MD Unavailable KIKI ABEBE Unavailable Unavailable Mony Bravo Unavailable Unavailable Kush Bravo Unavailable Unavailable Erma RN, Milly Unavailable Unavailable Unavailable Unavailable Bryant Boogie Attending Unavailable Johnson Rutledge Primary Care Unavailable Iman WISE Admitting Unavailable Iman WISE Attending Unavailable Iman WISE Primary Care Unavailable Iman WISE Admitting Unavailable Iman WISE Attending Unavailable Iman WISE Primary Care Unavailable Dr. Bryant Boogie MD Attending Provider Dr. Stefan Wise MD Primary Care Provider Dr. Denny Liang DO Emergency Provider Dr. Azam Russell DO Admit Provider [phone] Dr. Azam Russell DO Attending Provider Medications Current Medications Medication Drug Class(es) Dates Sig (Normalized) Sig (Original) amoxicillin 875 mg / clavulanate 125 mg oral tablet (20 sources) Penicillin-class Antibacterial Start: 09-24-2024 amoxicillin 875 mg-potassium clavulanate 125 mg tablet ; 1 (one) Tablet two times daily for 10 days Quantity: 20 {Tablet} Refills: 0 Ordered: 24-Sep-2024 MD Iman WISE Start: 24-Sep-2024 Comments: medication to be dispensed in office Start: 01-19-2022 End: 01-26-2022 take 1 tablet by mouth twice daily Amoxicillin-Pot Clavulanate 875-125 MG Oral Tablet ; 1 Tablet two times daily for 7 days Quantity: 14 {Tablet} Refills: 0 Ordered: 28-Jan-2022 MD Palmira ALEXANDRA Start: 19-Jan-2022 End: 26-Jan-2022 Status: Inactive Comment on above: medication to be dis pensed in office ascorbic acid 1000 mg oral tablet (11 sources) Vitamin C VITAMIN C, 1000M G (Oral Tablet) ; (1000 MG) aspirin 81 mg delayed release oral tablet (12 sources) Platelet Aggregation Inhibitor, Nonsteroidal Anti-inflammatory Drug Start: 09-25-19 aspirin 81 mg tablet,delayed release ; 1 (one) Tablet DR Tablet DR daily for 100 days Quantity: 100 {Tablet} Refills: 3 Ordered: 24-Sep-2024 MD Iman WISE Start: 24-Sep-2024 calcium ascorbate 500 mg oral tablet (1 source) Start: 09-28-19 take 1 tablet by mouth once daily Ascorbate Calcium (Vitamin C) 500 mg tablet Active 500 mg PO daily September 27, 2024 12:00am cholecalciferol 0.01 mg oral tablet (11 sources) Vitamin D take 1 tablet by mouth once daily Vitamin D3 10 MCG (400 UNIT) Oral Tablet ; 1 daily (10 MCG (400 UNIT)) DAILY MULTIPLE VITAMINS (Oral Tablet) (11 sources) take 1 tablet by mouth once daily DAILY MULTIPLE VITAMINS (Oral Tablet) ; 1 (one) qd doxycycline hyclate 100 mg oral capsule (8 sources) Tetracycline-class Drug Start: 09-26-19 25 doxycycline hyclate 100 mg capsule ; 1 (one) capsule bid for 30 days Quantity: 60 {Capsule} Refills: 0 Ordered: 25-Sep-2024 MD Iman WISE Start: 25-Sep-2024 Multivitamin (Daily Multi-Vitamin) tablet (1 source) Start: 09-28-19 Multivitamin (Daily Multi-Vitamin) tablet Active 1 {tbl} PO DAILY September 27, 2024 12:00am ondansetron 4 mg disintegrating oral tablet (20 sources) Serotonin-3 Receptor Antagonist Start: 09-25-19 25 ondansetron 4 mg disintegrating tablet ; 1 (one) tablet q 8 hours prn nausea for 5 days Quantity: 15 {Tablet} Refills: 1 Ordered: 24-Sep-2024 MD Iman WISE Start: 24-Sep-2024 Start: 09-21-2024 End: 09-27-2024 take 1 tablet by mouth every eight hours as needed for nausea and vomiting Ondansetron 8 mg tablet,disintegrating Discontinued 8 mg PO Q8H as needed for nausea and vomiting 12 0 September 21, 2024 12:00am September 27, 2024 2:34pm Comment on above: Medication taken as needed. [facility] Selenimin (11 sources) Selenimin Selenium 200 mcg capsule (1 source) Start: 09-27-2024 take 1 capsule by mouth once daily Selenium 200 mcg capsule Active 200 ug PO DAILY September 27, 2024 12:00am zinc acetate 25 mg oral capsule (1 source) Start: 09-27-2024 take 1 capsule by mouth once daily Zinc Acetate (Galzin) 25 mg (zinc) capsule Active 25 mg PO daily September 27, 2024 12:00am zinc gluconate 30 mg oral tablet (11 sources) take 1 tablet by mouth once daily Zinc 30 MG Oral Tablet ; 1 daily (30 MG) Completed/Discontinued Medications Medication Drug Class(es) Dates Sig (Normalized) Sig (Original) atorvastatin 20 mg oral tablet (11 sources) HMG-CoA Reductase Inhibitor Start: 09-14-2021 End: 02-04-2023 Lipitor 20 mg tablet ; one Tablet Tablet each evening for 30 days Quantity: 30 {Tablet} Refills: 12 Ordered: 04-Feb-2023 DANNY DEL ROSARIO Start: 14-Sep-2021 End: 04-Feb-2023 Status: Inactive azithromycin 250 mg oral tablet (11 sources) Macrolide Antimicrobial Start: 01-12-2022 End: 01-17-2022 Azithromycin 250 MG Oral Tablet ; 2 (two) Tablets on day one then 1 daily for 4 days for 5 days Quantity: 6 {Tablet} Refills: 0 Ordered: 19-Jan-2022 JOE ISSA Start: 12-Jan-2022 End: 17-Jan-2022 Status: Inactive Comments: medication to be dispensed in office Comment on above: medication to be dis pensed in office cayenne extract (11 sources) Cayenne ; qd Status: Inactive echinacea purpurea extract 125 mg oral tablet (11 sources) ECHINACEA, 125MG (Oral Tablet) ; (125 MG) Status: Inactive pantoprazole 40 mg delayed release oral tablet (11 sources) Proton Pump Inhibitor Start: 03-13-2015 End: 04-13-2015 take 1 tablet by mouth once daily PANTOPRAZOLE SODIUM, 40MG (Oral Tablet Delayed Release) ; 1 (one) Tablet DR daily for 30 days Quantity: 30 {Tablet} Refills: 1 Ordered: 13-Apr-2015 Start: 13-Mar-2015 End: 13-Apr-2015 Status: Inactive predniSONE 10 mg oral tablet (11 sources) Start: 05-13-2013 End: 03-13-2015 take 3 tablets by mouth twice daily PREDNISONE, 10MG (Oral Tablet) ; 3 (three) Tablet two times daily for 0 days Quantity: 30 {Tablet} Refills: 0 Ordered: 13-Mar-2015 Start: 13-May-2013 End: 13-Mar-2015 Status: Inactive Comments: meds to be dispensed in office Comment on above: meds to be dispensed in office Saccharomyces cerevisiae (11 sources) Brewers Yeast Status: Inactive thyroid, porcine (11 sources) End: 09-24-2024 Thyroid End: 24-Sep-2024 Status: Inactive Comments: OTC Comment on above: OTC Problems Active Problems Problem Classification Problem Date Documented Da te Episodic/Chronic Abdominal pain (2 sources) Abdominal pain - cause unknown; Translations: [Unspecified abdominal pain] 09-21-2024 Episodic Administrative/social admission (20 sources) Patient encounter status; Translations: [Counseling, unspecified] 01-19-2022 Episodic Calculus of urinary tract (20 sources) Kidney stone; Translations: [Calculus of kidney] 09-21-2024 Episodic Conditions associated with dizziness or vertigo (20 sources) Dizziness; Translations: [Dizziness and giddiness] 09-24-2024 Episodic Deficiency and other anemia (20 sources) Anemia; Translations: [Anemia, unspecified] 01-12-2022 Episodic Diabetes mellitus without complication (20 sources) Increased glucose level; Translations: [Other abnormal glucose] 09-24-2024 Episodic Encephalitis (except that caused by tuberculosis or sexually transmitted disease) (20 sources) Viral encephalitis; Translations: [Unspecified viral encephalitis] 09-24-2024 Episodic Esophageal disorders (20 sources) Esophageal reflux 01-12-2022 Chronic Fever of unknown origin (20 sources) Fever; Translations: [Fever, unspecified] 09-21-2024 Episodic Fracture of lower limb (11 sources) Fracture of fibula; Translations: [Unspecified fracture of shaft of unspecified fibula, initial encounter for closed fracture] 08-07-2020 Episodic Gastritis and duodenitis (20 sources) Acute gastritis; Translations: [Acute gastritis without bleeding] 09-24-2024 Episodic Influenza (11 sources) Influenza; Translations: [Influenza due to unidentified influenza virus with other respiratory manifestations] 05-13-2013 Episodic Malaise and fatigue (20 sources) Asthenia; Translations: [Weakness] Onset: 09-24-2024 09-21-2024 Episodic Nausea and vomiting (20 sources) Nausea and vomiting; Translations: [Nausea with vomiting, unspecified] 09-21-2024 Episodic Nonspecific chest pain (11 sources) Atypical chest pain; Translations: [Other chest pain] 03-13-2015 Episodic Other aftercare (11 sources) Post-discharge follow-up; Translations: [Encounter for follow-up examination after completed treatment for conditions other than malignant neoplasm] 08-07-2020 Episodic Other circulatory disease (20 sources) History of cerebrovascular accident; Translations: [Personal history of transient ischemic attack (TIA), and cerebral infarction without residual deficits] 01-12-2022 Episodic Other eye disorders (20 sources) Excessive tear production; Translations: [Unspecified epiphora, right side] 02-04-2023 Episodic Other gastrointestinal disorders (20 sources) Chronic constipation; Translations: [Other constipation] 02-04-2023 Episodic Comment on above: very anxious about n ot having bm every day. someone told her its not good for other body parts if she doesn't. No real constipation (stools are formed, not balls/hard). just worries about not going every day. Other infections; including parasitic (20 sources) Acute lyme disease; Translations: [Lyme disease, unspecified] Onset: 08-29-2024 09-25-2024 Episodic Comment on above: Severe case with pro found weakness, nausea, etc. Other injuries and conditions due to external causes (20 sources) Heat exhaustion; Translations: [Heat exhaustion, unspecified, initial encounter] 09-24-2024 Episodic Other injuries and conditions due to external causes (11 sources) At risk for falls ; Translations: [History of falling] 09-26-2016 Episodic Other lower respiratory disease (11 sources) Cough; Translations: [Cough] 01-12-2022 Episodic Other nervous system disorders (2 sources) Ataxia; Translations: [Ataxia, unspecified] 09-21-2024 Episodic Other non-traumatic joint disorders (20 sources) Acute ankle pain; Translations: [Pain in right ankle and joints of right foot] 01-12-2022 Episodic Other nutritional; endocrine; and metabolic disorders (20 sources) Unintentional weight loss; Translations: [Abnormal weight loss] 01-12-2022 Episodic Other skin disorders (11 sources) Seborrheic keratosis; Translations: [Other seborrheic keratosis] 09-26-2016 Episodic Other upper respiratory infections (20 sources) Chronic maxillary sinusitis; Translations: [Chronic maxillary sinusitis] 09-21-2024 Chronic Pneumonia (except that caused by tuberculosis or sexually transmitted disease) (20 sources) Community acquired pneumonia; Translations: [Pneumonia, unspecified organism] 01-19-2022 Episodic Residual codes; unclassified (8 sources) At risk for infection; Translations: [Other specified personal risk factors, not elsewhere classified] 09-24-2024 Episodic Syncope (11 sources) Syncope; Translations: [Syncope and collapse] 11-25-2016 Episodic Unclassified (6 sources) Aftercare ; Translations: [Encounter for other orthopedic aftercare] Onset: 07-29-2016 07-29-2016 Unclassified (11 sources) [facility] Onset: 2016 01-12-2022 Comment on above: Syncope; Disch Unclassified (11 sources) Transition into care - The patient is transitioning into care from an emergency room ([facility] ER on 09/20/24. Symptoms of generalized weakness, nausea/vomiting, fever and intermittent epistaxis. Treated for gastritis, heat exhaustion. Rx Zofran ODT 8mg every 8 hrs. as needed.). Note for Transition into care: Pt. reports Zofran helps nausea. Still dizzy/lightheaded with ambulation. 09-24-2024 Unclassified (10 sources) Constipation - Note for Constipation: Pt was seen in August 2022 for similar problem. Had a colonoscopy in September which was WNL. Pt states bowels seemed to work fine for a time but now BM's are not regular and smaller amount. Pt states is hungry even after eating a big meal at times. Rare abdominal discomfort. takes miralax on occasion. Prune juice does not help but eating prunes does. 02-04-2023 Unclassified (10 sources) [ADDITIONAL REASON] Eye Itching - Symptoms include eye itching and lacrimation, while symptoms do not include lid crusting. Symptoms are located in the right eye. 02-04-2023 Unclassified (1 source) Eye Itching - Symptoms include eye itching and lacrimation, while symptoms do not include lid crusting. Symptoms are located in the right eye. 02-04-2023 Unclassified (1 source) [ADDITIONAL REASON] Constipation - Note for Constipation: Pt was seen in August 2022 for similar problem. Had a colonoscopy in September which was WNL. Pt states bowels seemed to work fine for a time but now BM's are not regular and smaller amount. Pt states is hungry even after eating a big meal at times. Rare abdominal discomfort. takes miralax on occasion. Prune juice does not help but eating prunes does. 02-04-2023 Past or Other Problems Problem Classification Problem Date Documented Date Episodic/Chronic Coronary atherosclerosis and other heart disease (11 sources) Coronary atherosclerosis and other heart disease 08-20-2021 Esophageal disorders (11 sources) Esophageal disorders 01-29-2021 Fracture of upper limb (9 sources) Unspecified fracture of lower end of right ulna, subsequent encounter for closed fracture with routine healing; Translations: [Unspecified fracture of lower end of right ulna, initial encounter for closed fracture] Onset: 07-15-2016 08-26-2016 Episodic Headache; including migraine (20 sources) Headache; including migraine 10-22-2022 Other non-traumatic joint disorders (6 sources) Pain in wrist; Translations: [Pain in right wrist] Onset: 07-15-2016 07-15-2016 Episodic Unclassified (6 sources) Pain; Translations: [Pain, unspecified] Onset: 07-15-2016 07-15-2016 Episodic Unclassified (11 sources) Bowel problems - The bowel problems have been occurring for weeks (2). There has been associated constipation (stool is real thin), epigastric pain and weight loss (haven't been eating normal.), while there has been no associated low grade fever, nausea or rectal pain. Note for Bowel problems: Used prune juice and lower bowel formula 09-09-2022 Unclassified (11 sources) !Patient notification of lab results - Dr. Farnsworth. The test(s) that you had done were/was blood work. Your tests were not to goal (Your LDL cholesterol has risen from 100 to 164 since stopping the Lipitor. I recommend restarting this. Your blood count, iron, electrolytes, sugar, liver, kidneys and thyroid all look good.) You should call our office if you have any questions. 08-21-2021 Unclassified (11 sources) !Patient notification of lab results - Dr. Farnsworth. The test(s) that you had done were/was a CMP (kidneys, liver, nutrition, sugar) and a lipid panel (cholesterol and triglycerides). The results of your testing were normal (As discussed in the office, we can try stopping the Lipitor and rechecking cholesterol in 3 months.) . You should call our office if you have any questions. 01-30-2021 Unclassified (10 sources) Cerebrovascular Accident - The last clinic visit was 6 month(s) ago. Note for Cerebrovascular accident: Concerned about taking Lipitor. Wants to know if she could take Red Yeast Rice instead. Watches diet. Does not exercise 01-29-2021 Unclassified (11 sources) Foot pain - The onset of the foot pain has been sudden and has been occurring for 1 day. The course has been gradually worsening. The pain affects the right foot. The foot pain is described as being located in the entire foot. Note for Foot pain: Patient stepped down and stepped into a hole and twisted right foot. Denies numbness or tingling. Hurts when walks. Is using a Walker 10-14-2020 Unclassified (10 sources) Injury - The patient reports that it happened at home. The date of the injury was on 07/19/2020. The injury happened due to a falling down. Note for Injury: Fell from haymow to cement floor (May have blacked out). When Ifeanyi regained consciousness she got up and walked out of barn. Also has hematoma on scalp. Was in Hosp.07/18/20 to 07/20/20 08-07-2020 Unclassified (11 sources) [ADDITIONAL REASON] Transition into care - The patient is transitioning into care from a hospital ([facility]) and a summary of care was reviewed. 08-07-2020 Unclassified (10 sources) [ADDITIONAL REASON] Fracture Care Follow-Up - Note for Fracture Care Follow-Up: Seen Dr. Case and has Fracture of right Fibula. Is in a brace 08-07-2020 Unclassified (11 sources) !Patient notification of lab results - Farnsworth. The test(s) that you had done were/was blood work. The results of your testing were normal (except for hogh cholesterol. Red blood count and iron levels are NORMAL) . Please note that we have included copies of your results. 03-20-2018 Unclassified (11 sources) Transition into care - The patient is transitioning into care from a hospital ([facility]14 to 11-15-16 for syncope) and a summary of care was reviewed. Note for Transition into care: . 11-25-2016 Unclassified (7 sources) unsteady gait, off balance at times. 09-26-2016 Unclassified (7 sources) [ADDITIONAL REASON] Skin lesion - The skin lesion appeared gradually and has been occurring for months. It has been increasing in size. The skin lesion is located on the scalp. Note for Skin lesion: . 09-26-2016 Unclassified (11 sources) recheck - pain (chest pain. Not using Pantoprzaole. Pain is only about once a week. ). Note for recheck: . 04-13-2015 Unclassified (11 sources) !Patient notification of lab results 1 - Farnsworth. The test(s) that you had done were/was blood work. Your tests showed the following abnormalities: high cholesterol . Please note that we have included copies of your results, continue your current medication/therapy (including the new prescription for acid) and let us know if your symptoms do not improve. 03-13-2015 Unclassified (11 sources) Chest pain - The onset of the chest pain has been acute and has been occurring in an intermittent (feels the pain daily.) pattern for 1 month. The chest pain is described as being located in the left chest. The chest pain does not radiate. Note for Chest pain: . 03-13-2015 Unclassified (11 sources) Fatigue - Onset was 1 week(s) ago (had cough and sorethroat 2 weeks ago and fatigue followed.). Note for Fatigue: . 05-13-2013 Unclassified (7 sources) !Patient notification of lab results - Dr. Wise. The test(s) that you had done were/was blood work (This confirmed Lyme Disease. D/W brother on phone who will d/w her. If not making significant improvement in next 3-4 days, consider inpatient for IV ATB. Stop Augmentin start doxy). You should call our office if you have any questions. 09-25-2024 Unclassified (1 source) [ADDITIONAL REASON] Cerebrovascular Accident - The last clinic visit was 6 month(s) ago. Note for Cerebrovascular accident: Concerned about taking Lipitor. Wants to know if she could take Red Yeast Rice instead. Watches diet. Does not exercise 01-29-2021 Unclassified (1 source) Fracture Care Follow-Up - Note for Fracture Care Follow-Up: Seen Dr. Case and has Fracture of right Fibula. Is in a brace 08-07-2020 Unclassified (1 source) [ADDITIONAL REASON] Injury - The patient reports that it happened at home. The date of the injury was on 07/19/2020. The injury happened due to a falling down. Note for Injury: Fell from haymow to cement floor (May have blacked out). When Ifeanyi regained consciousness she got up and walked out of barn. Also has hematoma on scalp. Was in Hosp.07/18/20 to 07/20/20 08-07-2020 Unclassified (4 sources) Skin lesion - The skin lesion appeared gradually and has been occurring for months. It has been increasing in size. The skin lesion is located on the scalp. Note for Skin lesion: . 09-26-2016 Unclassified (4 sources) [ADDITIONAL REASON] unsteady gait, off balance at times. 09-26-2016 Results Test Name Value Interpretation Reference Range Facility Absolute lymphocyte countOrd ered By: Denny Liang on 09-27-2024 Lymphocytes Auto (Unsp spec) [#/Vol] 1.71 10*3/uL 0.83-4.51 [facility] Absolute neutrophil countOrd ered By: Denny Liang on 09-27-2024 Neutrophils (Bld) [#/Vol] 4.9 10*3/uL 2.0-7.7 [facility] Anion gap in Serum or Plasma Ordered By: Denny Liang on 09-27-2024 Anion gap [Moles/Vol] 12 mmol/L 5-[address] [facility] Automated lymphocyte count a s percentage of total leukocytesOrdered By: Denny Liang on 09-27-2024 Lymphocytes/100 WBC Auto (Unsp spec) 21.6 % 19-41 [facility] BUN/creatinine ratioOrdered By: Denny Liang on 09-27-2024 Urea nitrogen/Creatinine [Mass ratio] 24.8 mg/mg High 10-20 [facility] Basophil percentageOrdered B y: Denny Liang on 09-27-2024 Basophils/100 WBC (Bld) 1.1 % High 0-1 [facility] Carbon dioxide, total [Moles /volume] in Central venous bloodOrdered By: Denny Liang on 09-27-2024 CO2 [Moles/Vol] 25.9 mmol/L 21.0-32.0 [facility] Chloride assayOrdered By: tim Liang on 09-27-2024 Chloride [Moles/Vol] 101 mmol/L 98-108 [facility] Eosinophil percentageOrdered By: Denny Liang on 09-27-2024 Eosinophils/100 WBC (Bld) 3.2 % 0-5 [facility] Erythrocyte distribution wid th ratioOrdered By: Denny Liang on 09-27-2024 Erythrocyte distribution width (RBC) [Ratio] 13.9 % 11.6-14.6 [facility] Erythrocyte distribution wid th standard deviationOrdered By: Denny Liang on 09-27-2024 Erythrocyte distribution width (RBC) [Ratio] 44.7 fl High 35.1-43.9 [facility] Glomerular filtration rate ( GFR) estimation/1.73 sq m using serum, plasma, or whole bOrdered By: Denny Liang on 09-27-2024 GFR/1.73 sq M.predicted among non-blacks MDRD (S/P/Bld) [Vol rate/Area] 95 mL/min/{1.73_m2} >60 [facility] Comment on above: mL/min/1.73m2 CKD-EP I Creatinine Equation (2020) Hematocrit Auto (Bld) [Volum e fraction]Ordered By: Denny Liang on 09-27-2024 Hematocrit (Bld) [Volume fraction] 38.9 % 37-47 [facility] Hemoglobin measurementOrdere d By: Denny Liang on 09-27-2024 Hemoglobin (Bld) [Mass/Vol] 12.4 g/dL 12.0-15.0 [facility] Immature granulocytes/100 WB C Auto (Bld)Ordered By: Denny Liang on 09-27-2024 Immature granulocytes/100 WBC (Bld) 2.800 % High 0.0-0.9 [facility] Comment on above: IG% - Immature Granu locytes (promyelocytes, myelocytes and metamyelocytes) > 1% indicates that a LEFT SHIFT is Present. Laboratory - Chemistry and C hemistry - challengeon 09-27-2024 Cobalamin (Vitamin B12) [Mass/Vol] 1633 pg/mL Abnormal 180 - 914 pg/mL [facility]. Work Phone: Ferritin [Mass/Vol] 54 ng/mL Normal 22 - 378 ng/mL [facility]. Work Phone: Iron [Mass/Vol] 25 ug/dL Abnormal 50 - 170 ug/dL [facility]. Work Phone: MCV (mean corpuscular volume ) determinationOrdered By: Denny Liang on 09-27-2024 MCV (RBC) [Entitic vol] 87.8 fL 81-99 [facility] Mean corpuscular hemoglobin (MCH) determinationOrdered By: Denny Liang on 09-27-2024 MCH (RBC) [Entitic mass] 28.0 pg 27.0-32.0 [facility] Mean corpuscular hemoglobin concentration (MCHC) determinationOrdered By: Denny Liang on 09-27-2024 MCHC (RBC) [Mass/Vol] 31.9 g/dL Low 32-[address] [facility] Mean platelet volume determi nationOrdered By: Denny Liang on 09-27-2024 Platelet mean volume (Bld) [Entitic vol] 8.8 fL 6.2-12.0 [facility] Monocyte percentageOrdered B y: Denny Liang on 09-27-2024 Monocytes/100 WBC (Bld) 9.0 % 0-10 [facility] Neutrophil percentageOrdered By: Denny Liang on 09-27-2024 Neutrophils/100 WBC (Bld) 62.3 % 47-70 [facility] No Panel Informationon 09-27 IRON SATURATION 8.0 Abnormal 13 - 59 [facility]. Work Phone: TIBC 319 ug/dL Normal 250 - 450 ug/dL [facility].; [facility]. Work Phone: Trop T High Sen 6 ng/L Normal [facility]. Work Phone: Trop T High Sen 7 ng/L Normal [facility].; [facility] [employer]. Work Phone: UIBC 294 ug/dL Normal 228 - 428 ug/dL [facility]. Work Phone: Nucleated red blood cell per centageOrdered By: Denny Liang on 09-27-2024 Nucleated RBC/100 WBC (Bld) [Ratio] 0 % 0-5 [facility] Platelet countOrdered By: Chip Liang on 09-27-2024 Platelets (Bld) [#/Vol] 518 10*3/uL High 150-450 [facility] Potassium measurement (mass/ volume)Ordered By: Denny Liang on 09-27-2024 Potassium (Unsp spec) [Mass/Vol] 4.4 mmol/L 3.3-5.1 [facility] RBC Auto (Bld) [#/Vol]Ordere d By: Denny Liang on 09-27-2024 RBC (Bld) [#/Vol] 4.43 10*6/uL 4.2-5.[address] [facility] Serum creatinine measurement (mass/volume)Ordered By: Denny Liang on 09-27-2024 Creatinine [Mass/Vol] 0.62 mg/dL Low 0.70-1.[address] [facility] Serum glucose measurement (m ass/volume)Ordered By: Denny Liang on 09-27-2024 Glucose [Mass/Vol] 121 mg/dL High 70-99 [facility] Serum or plasma calcium inocencio urement (mass/volume)Ordered By: Denny Liang on 09-27-2024 Calcium [Mass/Vol] 9.7 mg/dL 7.6-11.0 [facility] Serum or plasma urea nitroge n measurement (mass/volume)Ordered By: Denny Liang on 09-27-2024 Urea nitrogen [Mass/Vol] 15 mg/dL 4-19 [facility] Sodium levelOrdered By: Sherice Liang on 09-27-2024 Sodium [Moles/Vol] 139 mmol/L 133-145 [facility] Troponin T.cardiac [Mass/vol ume] in Serum or Plasma by High sensitivity methodOrdered By: Denny Liang on 09-27-2024 Troponin T.cardiac High sensitivity method [Mass/Vol] 10 ng/L <14 [facility] Comment on above: Delta: < 6 on -2109 White blood cell (WBC) count Ordered By: Denny Liang on 09-27-2024 WBC (Bld) [#/Vol] 7.9 10*3/uL 4.4-11.0 [facility] Laboratory - Chemistry and C hemistry - challengeon 09-24-2024 CRP [Mass/Vol] 60 mg/L Abnormal 0 - 10 mg/L [facility]. Work Phone: TSH Qn 1.400 {uIU/mL} Normal 0.450 - 4.500 {uIU/mL} [facility]. Work Phone: Laboratory - Hematology and Cell countson 09-24-2024 ESR (Bld) [Velocity] 29 mm/h Normal 0 - 40 mm/h [facility].; [facility]. Work Phone: HbA1c (Bld) [Mass fraction] 6.2 % Abnormal 4.8 - 5.6 % [facility]; [facility]. Work Phone: Laboratory - Microbiology an d Antimicrobial susceptibilityon 09-24-2024 B. burgdorferi IgG IA Ql Negative Normal [email or web address]; [facility]. Work Phone: B. burgdorferi IgG+IgM IA Ql (S) Positive Normal [facility].; [facility]. Work Phone: B. burgdorferi IgM IA Ql Positive Normal [facility].; [facility] [employer] [facility]. Work Phone: No Panel Informationon 09-24 Lyme Interpretation Detected Abnormal [email or web address]; [facility] [employer] [facility]. Work Phone: [phone] 09-21-2024 Trop T High Sen 6 ng/L Normal <=14 [facility] Comment on above: Performed By: #### L 499.0042 #### [facility] [address] [place], [address] [id number] 09-21-2024 Trop T High Sen 7 ng/L Normal <=14 [facility] Comment on above: Performed By: #### L 499.0043 #### [facility] [address] [place], [address] Troponin T.cardiac [Mass/vol ume] in Serum or Plasma by High sensitivity methodOrdered By: Bryant Boogie on 09-21-2024 Troponin T.cardiac High sensitivity method [Mass/Vol] 7 ng/L <14 [facility] Troponin T.cardiac High sensitivity method [Mass/Vol] 6 ng/L <14 [facility] Urinalysis, Completeon 09-21 BACTERIA 1+ /hpf Normal None Seen [facility] Comment on above: Order Comment: CLEAN CATCH Performed By: #### L 400.0001 #### [facility] [address] [place], [address] 12 Lead EKGon 09-20-2024 12 Lead EKG [facility] Cardiovascular Services [address] [place] [address] 12 Lead EKG 09/20/24 2245 MR#: [id number] Acct: [id number] Name: IFEANYI SUAREZ Rep #: [id number] : 1950 73 From: Joey Justice MD Attending Dr: Status: DEP ER Ordering Dr: Bryant Boogie MD Date: 09/20/24 Location: ED Sex: F C Admitted: Test Reason : DYSRHYTHMIA Blood Pressure : */* mmHG Vent. Rate : 65 BPM Atrial Rate : 65 BPM P-R Int : 220 ms QRS Dur : 80 ms QT Int : 388 ms P-R-T Axes : 71 50 59 degrees QTcB Int : 403 ms Sinus rhythm with 1st degree A-V block Otherwise normal ECG Confirmed by HAI ESTRADA, JOEY ([id number]), rewrite editor LUCIANO GAMBLE ([id number]) on 09/21/2024 11:28:13 AM Referred By: Confirmed By: JOEY JUSTICE MD 09/21/24 1128 Date Joey Justice MD CC: SALONI Gibbs; Dr. Bryant Boogie MD Signed Normal [facility] Abdomen/Pelvis without Conto n 09-20-2024 Abdomen/Pelvis without Cont [facility] Imaging Services [address] [place] [address] Abdomen/Pelvis without Cont MR#: [id number] Acct: [id number] Name: IFEANYI SUAREZ Rep #: [id number] : 1950 F 73 From: Valdo Moore MD PCP: SALONI Gibbs Status: REG ER Study: Abdomen/Pelvis without Cont Date of Exam: 08/30 06/22 Exam# [id number] Ordering Dr: Bryant Boogie MD PROCEDURE: ABDOMEN/PELVIS WITHOUT CONT 09/20/2024 REASON FOR EXAM: LEFT FLANK PAIN TECHNIQUE: ABDOMEN/PELVIS WITHOUT CONT Noncontrast technique limits evaluation of the abdominal and pelvic viscera. Coronal and Sagittal reconstruction series were provided. One or more dose reduction techniques were used (e.g., Automated exposure control, adjustment of the mA and/or kV according to patient size, use of iterative reconstruction technique). CTDIvol: 17.0 mGy DLP: 690 mGy-cm COMPARISON: None FINDINGS: Lung bases: Aortic valvular calcification. Bibasilar atelectasis. Liver: Unremarkable Gallbladder: Unremarkable for degree of distention Spleen: Unremarkable Pancreas: Unremarkable Adrenals: Unremarkable Kidneys: No hydronephrosis. There are punctate nonobstructing stones in the right kidney measuring up to 2 mm in size. Ureters: Poorly visualized, without stone identified. Bladder: Unremarkable Reproductive Organs: Unremarkable Bowel: No evidence of obstruction or inflammation on this limited noncontrast evaluation. Visualized portions of the appendix are unremarkable. Lymph nodes: No suspicious lymph node enlargement. Vasculature: Mild diffuse atherosclerotic calcifications are noted. Bones: Degenerative changes of the spine. Grade 1 anterolisthesis of L3 on L4. Soft tissues: There is a lipoma in the proximal right thigh, within or adjacent to the quadriceps musculature. CT/Abdomen/Pelvis without Cont IMPRESSION: Punctate nonobstructing stones in the right kidney measuring up to 2 mm. Otherwise there is no evidence of an acute intra-abdominal abnormality on this limited noncontrast exam. Reading Location: [id number] CC: SALONI Gibbs; Dr. Bryant Boogie MD Aviation Medicine Specialist: Signed Normal [facility] Absolute lymphocyte countOrd ered By: Bryant Boogie on 09-20-2024 Lymphocytes Auto (Unsp spec) [#/Vol] 0.49 10*3/uL Low 0.83-4.51 [facility] Absolute neutrophil countOrd ered By: Bryant Boogie on 09-20-2024 Neutrophils (Bld) [#/Vol] 4.6 10*3/uL 2.0-7.7 [facility] Anion gap in Serum or Plasma Ordered By: Bryant Boogie on 09-20-2024 Anion gap [Moles/Vol] 12 mmol/L 5-[address] [facility] Automated lymphocyte count a s percentage of total leukocytesOrdered By: Bryant Boogie on 09-20-2024 Lymphocytes/100 WBC Auto (Unsp spec) 8.2 % Low 19-41 [facility] BUN/creatinine ratioOrdered By: Bryant Boogie on 09-20-2024 Urea nitrogen/Creatinine [Mass ratio] 18.2 mg/mg 10-20 [facility] Basophil percentageOrdered B y: Bryant Boogie on 09-20-2024 Basophils/100 WBC (Bld) 0.5 % 0-1 [facility] Bilirubin Test strip Ql (U)O rdered By: Bryant Boogie on 09-20-2024 Bilirubin Ql (U) Negative Negative [facility] Bilirubin, totalOrdered By: Bryant Boogie on 09-20-2024 Bilirubin [Mass/Vol] 0.29 mg/dL 0.00-1.30 [facility] Brain/Head without Contrasto n 09-20-2024 Brain/Head without Contrast [facility] Imaging Services [address] [place], [place] [address] Brain/Head without Contrast MR#: [id number] Acct: [id number] Name: IFEANYI SUAREZ Rep #: [id number] : 1950 F 73 From: Valdo Moore MD PCP: SALONI Gibbs Status: REG ER Study: Brain/Head without Contrast Date of Exam: 08/30 06/22 Exam# [id number] Ordering Dr: Bryant Boogie MD PROCEDURE: BRAIN/HEAD WITHOUT CONTRAST 09/20/2024 REASON FOR EXAM: ATAXIA TECHNIQUE: BRAIN/HEAD WITHOUT CONTRAST Coronal and Sagittal reconstruction series were provided. One or more dose reduction techniques were used (e.g., Automated exposure control, adjustment of the mA and/or kV according to patient size, use of iterative reconstruction technique. RADIATION DOSE SUMMARY: CTDlvol: 45.0 mGy DLP: 830 mGycm COMPARISON: None FINDINGS: Brain: No acute intracranial hemorrhage, mass effect, or midline shift. Low density in the periventricular white matter suggests mild chronic small vessel ischemic changes. Basal ganglia calcifications. CSF Spaces: Mild generalized cerebral atrophy Sinuses/Mastoids: Opacification with central calcifications in the left maxillary sinus. No mastoid effusion. Bones: Unremarkable CT/Brain/Head without Contrast IMPRESSION: 1. No acute intracranial abnormality. 2. Left maxillary sinus disease with central calcifications, as could be seen with fungal etiology. Reading Location: [facility] CC: SALONI Gibbs; Dr. Bryant Boogie MD Aviation Medicine Specialist: Signed Normal [facility] CBC W/Diff, Automatedon 08-30 Absolute Lymph 0.49 X10 3/uL Low 0.83-4.51 [facility] Comment on above: Performed By: #### L 100.0100, L501.2450, L500.4050 #### [facility] [address] [place], [place], [address] Absolute Neut 4.6 X10 3/uL Normal 2.0-7.7 [facility] Comment on above: Performed By: #### L 100.0100, L501.2450, L500.4050 #### [facility] [address] [place], [address] Basophils/100 WBC (Bld) 0.5 % Normal 0-1 [facility] Comment on above: Performed By: #### L 100.0100, L501.2450, L500.4050 #### [facility] [address] [place], [address] Eosinophils/100 WBC (Bld) 0.2 % Normal 0-5 [facility] Comment on above: Performed By: #### L 100.0100, L501.2450, L500.4050 #### [facility] [address] [place], [address] Erythrocyte distribution width (RBC) [Ratio] 14.3 % Normal 11.6-14.6 [facility] Comment on above: Performed By: #### L 100.0100, L501.2450, L500.4050 #### [facility] [address] [place], [address] Hematocrit (Bld) [Volume fraction] 36.0 % Low 37-47 [facility] Comment on above: Performed By: #### L 100.0100, L501.2450, L500.4050 #### [facility] [address] [place], [address] Hemoglobin (Bld) [Mass/Vol] 11.5 g/dL Low 12.0-15.0 [facility] Comment on above: Performed By: #### L 100.0100, L501.2450, L500.4050 #### [facility] [address] [place], [address] IG% 0.300 Normal 0.0-0.9 [facility] Comment on above: Result Comment: IG% - Immature Granulocytes (promyelocytes, myelocytes and metamyelocytes) > 1% indicates that a LEFT SHIFT is Present. Performed By: #### L 100.0100, L501.2450, L500.4050 #### [facility] [address] [place], [address] Lymphocytes/100 WBC (Bld) 8.2 % Low 19-41 [facility] Comment on above: Performed By: #### L 100.0100, L501.2450, L500.4050 #### [facility] [address] [place], [address] MCH (RBC) [Entitic mass] 28.0 pg Normal 27.0-32.0 [facility] Comment on above: Performed By: #### L 100.0100, L501.2450, L500.4050 #### [facility] [address] [place], [address] MCHC (RBC) [Mass/Vol] 31.9 g/dL Low 32-[address] [facility] Comment on above: Performed By: #### L 100.0100, L501.2450, L500.4050 #### [facility] [address] [place], [address] MCV (RBC) [Entitic vol] 87.8 fL Normal 81-99 [facility] Comment on above: Performed By: #### L 100.0100, L501.2450, L500.4050 #### [facility] [address] [place], [address] Monocytes/100 WBC (Bld) 13.8 % High 0-10 [facility] Comment on above: Performed By: #### L 100.0100, L501.2450, L500.4050 #### [facility] [address] [place], [address] Neutrophils/100 WBC (Bld) 77.0 % High 47-70 [facility] Comment on above: Performed By: #### L 100.0100, L501.2450, L500.4050 #### [facility] [address] [place], [address] Nucleated RBC (Bld) [#/Vol] 0 10*3/uL Normal 0-5 [facility] Comment on above: Performed By: #### L 100.0100, L501.2450, L500.4050 #### [facility] [address] [place], [address] Platelet mean volume (Bld) [Entitic vol] 10.1 fL Normal 6.2-12.0 [facility] Comment on above: Performed By: #### L 100.0100, L501.2450, L500.4050 #### [facility] [address] [place], [address] Platelets (Bld) [#/Vol] 266 10*3/uL Normal 150-450 [facility] Comment on above: Performed By: #### L 100.0100, L501.2450, L500.4050 #### [facility] [address] [place], [address] RBC (Bld) [#/Vol] 4.10 10*6/uL Low 4.2-5.[address] [facility] Comment on above: Performed By: #### L 100.0100, L501.2450, L500.4050 #### [facility] [address] [place], [address] RDW SD 46.2 fl High 35.1-43.9 [facility] Comment on above: Performed By: #### L 100.0100, L501.2450, L500.4050 #### [facility] [address] [place], [address] WBC (Bld) [#/Vol] 6.0 10*3/uL Normal 4.4-11.0 [facility] Comment on above: Performed By: #### L 100.0100, L501.2450, L500.4050 #### [facility] [address] [place], [address] Carbon dioxide, total [Moles /volume] in Central venous bloodOrdered By: Bryant Boogie on 09-20-2024 CO2 [Moles/Vol] 23.8 mmol/L 21.0-32.0 [facility] Chest PA and Lateralon 09-20 Chest PA and Lateral [facility] Imaging Services [address] [place] [address] Chest PA and Lateral MR#: [id number] Acct: [id number] Name: IFEANYI SUAREZ Rep #: [id number] : 1950 F 73 From: Valdo Moore MD PCP: SALONI Gibbs Status: REG ER Study: Chest PA and Lateral Date of Exam: 09/20/24 Exam# [id number] Ordering Dr: Bryant Boogie MD PROCEDURE: CHEST PA AND LATERAL 09/20/2024 REASON FOR EXAM: WEAKNESS TECHNIQUE: CHEST PA AND LATERAL COMPARISON: None FINDINGS: Hardware: None Heart: The heart size is normal. Mediastinum: The mediastinal contour is unremarkable. Aortic atherosclerosis. Lungs: No focal consolidation or pleural effusion. Bones: Degenerative changes are identified within the thoracic spine. RAD/Chest PA and Lateral IMPRESSION: No acute cardiopulmonary abnormality. Reading Location: [id number] CC: SALONI Gibbs; Dr. Bryant Boogie MD Aviation Medicine Specialist: Signed Normal [facility] Chloride assayOrdered By: Jose Boogie on 09-20-2024 Chloride [Moles/Vol] 98 mmol/L 98-108 [facility] Comprehensive Metabolic Prof ilon 09-20-2024 Albumin [Mass/Vol] 3.7 g/dL Normal 3.4-4.8 [facility] Comment on above: Performed By: #### L 100.0100, L501.2450, L500.4050 #### [facility] [address] [place], [address] Albumin/Globulin [Mass ratio] 1.0 {ratio} Normal 0.9-2.4 [facility] Comment on above: Performed By: #### L 100.0100, L501.2450, L500.4050 #### [facility] [address] [place], [address] ALK PHOS 81 U/L Normal 35-104 [facility] Comment on above: Performed By: #### L 100.0100, L501.2450, L500.4050 #### [facility] [address] [place], [address] ALT [Catalytic activity/Vol] 23 U/L Normal <=34 [facility] Comment on above: Performed By: #### L 100.0100, L501.2450, L500.4050 #### [facility] [address] [place], [address] AST [Catalytic activity/Vol] 36 U/L High <=31 [facility] Comment on above: Performed By: #### L 100.0100, L501.2450, L500.4050 #### [facility] [address] [place], [address] Bilirubin [Mass/Vol] 0.29 mg/dL Normal 0.00-1.30 [facility] Comment on above: Performed By: #### L 100.0100, L501.2450, L500.4050 #### [facility] [address] [place], [address] BUN/CRE 18.2 RATIO Normal 10-20 [facility] Comment on above: Performed By: #### L 100.0100, L501.2450, L500.4050 #### [facility] [address] [place], [address] Calcium [Mass/Vol] 9.0 mg/dL Normal 7.6-11.0 [facility] Comment on above: Performed By: #### L 100.0100, L501.2450, L500.4050 #### [facility] [address] [place], [address] Chloride [Moles/Vol] 98 mmol/L Normal 98-108 [facility] Comment on above: Performed By: #### L 100.0100, L501.2450, L500.4050 #### [facility] [address] [place], [address] CO2 [Moles/Vol] 23.8 mmol/L Normal 21.0-32.0 [facility] Comment on above: Performed By: #### L 100.0100, L501.2450, L500.4050 #### [facility] [address] [place], [address] Creatinine [Mass/Vol] 0.72 mg/dL Normal 0.70-1.[address] [facility] Comment on above: Performed By: #### L 100.0100, L501.2450, L500.4050 #### [facility] [address] [place], [address] ECRCL 52.58 ml/min Normal 50-250 [facility] Comment on above: Performed By: #### L 100.0100, L501.2450, L500.4050 #### [facility] [address] [place], [address] GAP 12 Normal 5-15 [facility] Comment on above: Performed By: #### L 100.0100, L501.2450, L500.4050 #### [facility] [address] [place], [address] GFR/1.73 sq M.predicted among non-blacks MDRD (S/P/Bld) [Vol rate/Area] 89 mL/min/{1.73_m2} Normal >60 [facility] Comment on above: Result Comment: mL/m in/1.73m2 CKD-EPI Creatinine Equation (2020) Performed By: #### L 100.0100, L501.2450, L500.4050 #### [facility] [address] [place], [address] Globulin (S) [Mass/Vol] 3.6 g/dL Normal 2.2-4.2 [facility] Comment on above: Performed By: #### L 100.0100, L501.2450, L500.4050 #### [facility] [address] [place], [address] Glucose [Mass/Vol] 164 mg/dL High 70-99 [facility] Comment on above: Performed By: #### L 100.0100, L501.2450, L500.4050 #### [facility] [address] [place], [address] Potassium [Moles/Vol] 4.2 mmol/L Normal 3.3-5.[address] [facility] Comment on above: Performed By: #### L 100.0100, L501.2450, L500.4050 #### [facility] [address] [place], [address] Sodium [Moles/Vol] 133 mmol/L Normal 133-145 [facility] Comment on above: Performed By: #### L 100.0100, L501.2450, L500.4050 #### [facility] [address] [place], [address] T PROT 7.3 g/dL Normal 5.9-8.4 [facility] Comment on above: Performed By: #### L 100.0100, L501.2450, L500.4050 #### [facility] [address] [place], [address] Urea nitrogen [Mass/Vol] 13 mg/dL Normal 4-19 [facility] Comment on above: Performed By: #### L 100.0100, L501.2450, L500.4050 #### [facility] [address] [place], [address] Emergency Department Summary on 09-20-2024 Emergency Department Summary [facility] Medical Records Department [address] [place] [address] Emergency Department Summary 09/20/24 MR#: [id number] Acct: [id number] Name: IFEANYI SUAREZ Rep #: [id number] : 1950 73 From: Bryant Boogie MD PCP: SALONI Gibbs Status:REG ER Location: ED HPI History of Present Illness Chief Complaint: General Illness Informant: patient and family Narrative Narrative: 73-year-old female states she has been feeling poorly and weak for the past 2-3 days although it has varied. It started 2 days ago, she states she was outside in the heat stacking wood and started feeling poorly and so she thought she was overheated. They have not had any air conditioning until last night they finally bought a window unit to put in their house, temperatures were in the mid 90s last day or 2. She said yesterday she felt pretty good, she drank fluid, she had some decreased urination each time she went in volume, but still urinating throughout the day every day, and not dark. She has had no chest or abdominal pain until the last hour or 2 while waiting here in the ER she developed some left-sided abdominal discomfort that is relatively mild. She vomited once prior to coming here, did not have any abdominal pain when that occurred, but states that off-and-on she has been feeling off balance when she walks. No headache, no vision changes or visual field cuts or diplopia, or eye pain. She states this is just been in the past 2 or 3 days. She was walking fine earlier today and tonight when she is feeling bad, she is off balance again. She denies feeling any dizziness in her head. No earache or hearing changes. No neck pain, back pain, numbness or weakness in an arm or leg. She states she has not had a lot of fluids today, maybe a quart of water. PFSH PFSH Medical History no medical history no medical history Home Medications ???Medication ???Instructions ???Recorded ???Last Taken ???Type ondansetron 8 mg disintegrating 8 mg PO Q8H PRN nausea and 5 Unknown Rx tablet vomiting #12 tabs Allergy/AdvReac Type Severity Reaction Status Date / Time No Known Allergies Allergy Verified 09/20/24 20:32 Surgical History no surgical history Social History Smoking Status: Never smoker ROS ROS ED Constitutional Constitutional ED: Reports fatigue and weakness; Denies chills, fever(s) or sweats Eyes Eyes: Denies blurry vision, change in vision or diplopia ENT ENT ED: Reports disequillibrium; Denies abnormal hearing, dizziness, ear pain, facial pain, hearing loss, rhinorrhea, sore throat or tinnitus Cardiovascular Cardiovascular: Denies chest pain, palpitations or racing heartbeat Respiratory/Chest Respiratory/Chest: Denies cough or dyspnea Gastrointestinal Gastrointestinal: Reports abdominal pain, nausea and vomiting; Denies diarrhea Genitourinary Genitourinary ED: Denies dysuria or hematuria Musculoskeletal Musculoskeletal: Denies back pain or neck pain Integumentary Denies abscess or rash Neurologic Neurologic: Reports as per HPI and abnormal gait; Denies headache(s), paresthesias or weakness Psychiatric Psychiatric: Denies anxiety or suicidal thoughts EXAM Physical Exam Const Vital Signs: 09/20/24 20:31 09/20/24 21:00 09/20/24 22:31 Temperature 98.7 F Temperature Source Oral Pulse Rate 68 70 Pulse Rate [Lying] Pulse Rate [Sitting (for 1 minute prior to obtaining)] Pulse Rate [Standing (for 1 minute prior to obtaining)] Respiratory Rate 14 20 H Respiratory Effort Normal Non-Labored Respiratory Pattern Normal Blood Pressure 134/83 H 123/80 H Blood Pressure [Lying] Blood Pressure [Sitting (for 1 minute prior to obtaining)] Blood Pressure [Standing (for 1 minute prior to obtaining)] Blood Pressure Mean 100 94 Blood Pressure Mean [Lying] Blood Pressure Mean [Sitting (for 1 minute prior to obtaining)] Blood Pressure Mean [Standing (for 1 minute prior to obtaining)] Pulse Ox 98 97 Oxygen Delivery Method 09/20/24 22:35 09/21/24 00:17 09/21/24 00:19 Temperature Temperature Source Pulse Rate 60 59 L Pulse Rate [Lying] 60 Pulse Rate [Sitting (for 1 minute prior to obtaining)] 67 Pulse Rate [Standing (for 1 minute prior to obtaining)] 71 Respiratory Rate 18 22 H Respiratory Effort Respiratory Pattern Blood Pressure 112/72 120/75 Blood Pressure [Lying] 118/73 Blood Pressure [Sitting (for 1 minute prior to obtaining)] 127/77 H Blood Pressure [Standing (for 1 minute prior to obtaining)] 113/74 Blood Pressure Mean 85 90 Blood Pressure Mean [Lying] 88 Blood Pressure Mean [Sitting (for 1 minute prior to obtaining)] 93 Blood Pressure Mean [Standing (for 1 minute prior (more content not included)... Normal [facility] Eosinophil percentageOrdered By: Bryant Boogie on 09-20-2024 Eosinophils/100 WBC (Bld) 0.2 % 0-5 [facility] Erythrocyte distribution wid th ratioOrdered By: Bryant Boogie on 09-20-2024 Erythrocyte distribution width (RBC) [Ratio] 14.3 % 11.6-14.6 [facility] Erythrocyte distribution wid th standard deviationOrdered By: Bryant Boogie on 09-20-2024 Erythrocyte distribution width (RBC) [Ratio] 46.2 fl High 35.1-43.9 [facility] Glomerular filtration rate ( GFR) estimation/1.73 sq m using serum, plasma, or whole bOrdered By: Bryant Boogie on 09-20-2024 GFR/1.73 sq M.predicted among non-blacks MDRD (S/P/Bld) [Vol rate/Area] 89 mL/min/{1.73_m2} >60 [facility] Comment on above: mL/min/1.73m2 CKD-EP I Creatinine Equation (2020) Hematocrit Auto (Bld) [Volum e fraction]Ordered By: Bryant Boogie on 09-20-2024 Hematocrit (Bld) [Volume fraction] 36.0 % Low 37-47 [facility] Hemoglobin measurementOrdere d By: Bryant Boogie on 09-20-2024 Hemoglobin (Bld) [Mass/Vol] 11.5 g/dL Low 12.0-15.0 [facility] Immature granulocytes/100 WB C Auto (Bld)Ordered By: Bryant oBogie on 09-20-2024 Immature granulocytes/100 WBC (Bld) 0.300 % 0.0-0.9 [facility] Comment on above: IG% - Immature Granu locytes (promyelocytes, myelocytes and metamyelocytes) > 1% indicates that a LEFT SHIFT is Present. Ketones Test strip Ql (U)Ord ered By: Bryant Boogie on 09-20-2024 Ketones Ql (U) Negative Negative [facility] L501.4021on 09-20-2024 Trop T High Sen < 6 Normal <=14 [facility] Comment on above: Performed By: #### L 501.4021 #### [facility] [address] [place], [place], [id number] Laboratory - Chemistry and C hemistry - challengeOrdered By: Bryant Boogie on 09-20-2024 AST [Catalytic activity/Vol] 36 U/L High <32 [facility] Lipaseon 09-20-2024 Lipase [Catalytic activity/Vol] 34 U/L Normal 13-75 [facility] Comment on above: Result Comment: Duran kirby note: LIPASE revised reference range effective 22. New Lipase methodology. Expected to produce lower values than the previous assay method. NEW Reference Range: 13 - 75 U/L Performed By: #### L 100.0100, L501.2450, L500.4050 #### [facility] [address] [place], [place], [id number] Lipase measurementOrdered By : Bryant Boogie on 09-20-2024 Lipase [Catalytic activity/Vol] 34 U/L 13-75 [facility] Comment on above: Please note:LIPASE r evised reference range effective 22. New Lipase methodology. Expected to produce lower values than the previous assay method. NEW Reference Range: 13 - 75 U/L MCV (mean corpuscular volume ) determinationOrdered By: Bryant Boogie on 09-20-2024 MCV (RBC) [Entitic vol] 87.8 fL 81-99 [facility] Mean corpuscular hemoglobin (MCH) determinationOrdered By: Bryant Boogie on 09-20-2024 MCH (RBC) [Entitic mass] 28.0 pg 27.0-32.0 [facility] Mean corpuscular hemoglobin concentration (MCHC) determinationOrdered By: Bryant Boogie on 09-20-2024 MCHC (RBC) [Mass/Vol] 31.9 g/dL Low 32-[address] [facility] Mean platelet volume determi nationOrdered By: Bryant Boogie on 09-20-2024 Platelet mean volume (Bld) [Entitic vol] 10.1 fL 6.2-12.0 [facility] Microscopic analysis of urin e for red blood cells (RBC)Ordered By: Bryant Boogie on 09-20-2024 Microscopic analysis of urine for red blood cells (RBC) 0 SEEN /hpf 0-5 [facility] Monocyte percentageOrdered B y: Bryant Boogie on 09-20-2024 Monocytes/100 WBC (Bld) 13.8 % High 0-10 [facility] Mucus LM Ql (Urine sed)Order ed By: Bryant Boogie on 09-20-2024 Mucus Ql (Urine sed) 0 SEEN /hpf [facility] Neutrophil percentageOrdered By: Bryant Boogie on 09-20-2024 Neutrophils/100 WBC (Bld) 77.0 % High 47-70 [facility] Nitrite Test strip Ql (U)Ord ered By: Bryant Boogie on 09-20-2024 Nitrite Ql (U) Negative Negative [facility] Nucleated red blood cell per centageOrdered By: Bryant Boogie on 09-20-2024 Nucleated RBC/100 WBC (Bld) [Ratio] 0 % 0-5 [facility] Platelet countOrdered By: Jose Boogie on 09-20-2024 Platelets (Bld) [#/Vol] 266 10*3/uL 150-450 [facility] Potassium measurement (mass/ volume)Ordered By: Bryant Boogie on 09-20-2024 Potassium (Unsp spec) [Mass/Vol] 4.2 mmol/L 3.3-5.1 [facility] Protein Test strip Ql (U)Ord ered By: Bryant Boogie on 09-20-2024 Protein Ql (U) 30 mg/dl High Negative [facility] RBC Auto (Bld) [#/Vol]Ordere d By: Bryant Boogie on 09-20-2024 RBC (Bld) [#/Vol] 4.10 10*6/uL Low 4.2-5.[address] [facility] Serum creatinine measurement (mass/volume)Ordered By: Bryant Boogie on 09-20-2024 Creatinine [Mass/Vol] 0.72 mg/dL 0.70-1.[address] [facility] Serum globulin measurementOr dered By: Bryant Boogie on 09-20-2024 Globulin (S) [Mass/Vol] 3.6 g/dL 2.2-4.2 [facility] Serum glucose measurement (m ass/volume)Ordered By: Bryant Boogie on 09-20-2024 Glucose [Mass/Vol] 164 mg/dL High 70-99 [facility] Serum or plasma alanine marroquin otransferase (ALT) measurementOrdered By: Bryant Boogie on 09-20-2024 ALT [Catalytic activity/Vol] 23 U/L <35 [facility] Serum or plasma albumin inocencio urement (mass/volume)Ordered By: Bryant Boogie on 09-20-2024 Albumin [Mass/Vol] 3.7 g/dL 3.4-4.8 [facility] Serum or plasma albumin/glob ulin mass ratioOrdered By: Bryant Boogie on 09-20-2024 Albumin/Globulin [Mass ratio] 1.0 {ratio} 0.9-2.4 [facility] Serum or plasma alkaline isaak sphatase measurementOrdered By: Bryant Boogie on 09-20-2024 ALP [Catalytic activity/Vol] 81 U/L 35-104 [facility] Serum or plasma calcium inocencio urement (mass/volume)Ordered By: Bryant Boogie on 09-20-2024 Calcium [Mass/Vol] 9.0 mg/dL 7.6-11.0 [facility] Serum or plasma urea nitroge n measurement (mass/volume)Ordered By: Bryant Boogie on 09-20-2024 Urea nitrogen [Mass/Vol] 13 mg/dL 4-19 [facility] Sodium levelOrdered By: Sameer Boogie on 09-20-2024 Sodium [Moles/Vol] 133 mmol/L 133-145 [facility] Squamous epithelial cells de tection in urine sediment by light microscopyOrdered By: Bryant Boogie on 09-20-2024 Epithelial cells.squamous LM Ql (Urine sed) 0 SEEN /hpf 5-10 [facility] Total proteinOrdered By: Moody Boogie on 09-20-2024 Protein [Mass/Vol] 7.3 g/dL 5.9-8.4 [facility] Troponin T.cardiac [Mass/vol ume] in Serum or Plasma by High sensitivity methodOrdered By: Bryant Boogie on 09-20-2024 Troponin T.cardiac High sensitivity method [Mass/Vol] < 6 ng/L <14 [facility] Urinalysis, Completeon 09-20 BILIRUBIN URINE Negative Normal Negative [facility] Comment on above: Order Comment: CLEAN CATCH Performed By: #### L [id number] #### [facility] [address] [place], [address] Clarity (U) Clear Normal Clear [facility] Comment on above: Order Comment: CLEAN CATCH Performed By: #### L [id number] #### [facility] [address] [place], [address] Color (U) Yellow Normal Yellow [facility] Comment on above: Order Comment: CLEAN CATCH Performed By: #### L [id number] #### [facility] [address] [place], [address] GLUCOSE, UR Normal Normal Normal [facility] Comment on above: Order Comment: CLEAN CATCH Performed By: #### L [id number] #### [facility] [address] [place], [address] KETONE UR Negative Normal Negative [facility] Comment on above: Order Comment: CLEAN CATCH Performed By: #### L [id number] #### [facility] [address] [place], [address] LEUK ESTERASE Negative Normal Negative [facility] Comment on above: Order Comment: CLEAN CATCH Performed By: #### L [id number] #### [facility] [address] [place], [address] Nitrite Ql (U) Negative Normal Negative [facility] Comment on above: Order Comment: CLEAN CATCH Performed By: #### L [id number] #### [facility] [address] [place], [address] OCCULT BLOOD-UR Negative Normal Negative [facility] Comment on above: Order Comment: CLEAN CATCH Performed By: #### L [id number] #### [facility] [address] [place], [address] pH UR 6.0 Normal 5.0 - 8.0 [facility] Comment on above: Order Comment: CLEAN CATCH Performed By: #### L [id number] #### [facility] [address] [place], [address] PROT DIPSTX 30 mg/dl Abnormal Negative [facility] Comment on above: Order Comment: CLEAN CATCH Performed By: #### L [id number] #### [facility] [address] [place], [address] SP.GR. DIPSTX 1.020 Normal 1.002-1.030 [facility] Comment on above: Order Comment: CLEAN CATCH Performed By: #### L [id number] #### [facility] [address] [place], [address] UROBILI Normal Normal Normal [facility] Comment on above: Order Comment: CLEAN CATCH Performed By: #### L [id number] #### [facility] [address] [place], [address] EPI,SQUAMOUS 0 SEEN Normal 5-10 [facility] Comment on above: Order Comment: CLEAN CATCH Performed By: #### L [id number] #### [facility] [address] [place], [place], [id number] Mucus Ql (Urine sed) 0 SEEN Normal [facility] Comment on above: Order Comment: CLEAN CATCH Performed By: #### L [id number] #### [facility] [address] [place], [address] RBC 0 SEEN Normal 0-5 [facility] Comment on above: Order Comment: CLEAN CATCH Performed By: #### L [id number] #### [facility] [address] [place], [place], [id number] WBC 0 SEEN Normal 0-5 [facility] Comment on above: Order Comment: CLEAN CATCH Performed By: #### L [id number] #### [facility] [address] [place], [place], [id number] Urine clarityOrdered By: Moody Boogie on 09-20-2024 Clarity (U) Clear Clear [facility] Urine color determinationOrd ered By: Bryant Boogie on 09-20-2024 Color (U) Yellow Yellow [facility] Urine glucose detectionOrder ed By: Bryant Boogie on 09-20-2024 Glucose Ql (U) Normal mg/dl Normal [facility] Urine leukocyte esterase det ection by dipstickOrdered By: Bryant Boogie on 09-20-2024 Leukocyte esterase Test strip Ql (U) Negative Negative [facility] Urine pHOrdered By: Bryant Boogie on 09-20-2024 pH (U) 6.0 [pH] 5.0 - 8.0 [facility] Urine sediment bacteria coun t by microscopy (number/high power field)Ordered By: Bryant Boogie on 09-20-2024 Bacteria LM.HPF (Urine sed) [#/Area] 1 /[HPF] None Seen [facility] Urine specific gravity measu rementOrdered By: Bryant Boogie on 09-20-2024 Specific gravity (U) [Rel density] 1.020 1.002-1.030 [facility] Urine urobilinogen measureme ntOrdered By: Bryant Boogie on 09-20-2024 Urobilinogen Ql (U) Normal mg/dl Normal [facility] White blood cell (WBC) count Ordered By: Bryant Boogie on 09-20-2024 WBC (Bld) [#/Vol] 6.0 10*3/uL 4.4-11.0 [facility] White blood cell countOrdere d By: Bryant Boogie on 09-20-2024 White blood cell count 0 SEEN /hpf 0-5 [facility] Laboratory - Chemistry and C hemistry - challengeon 11-13-2022 Albumin [Mass/Vol] 3.3 g/dL Abnormal 3.4 - 5.0 g/dL [facility]; [facility] Work Phone: ALT [Catalytic activity/Vol] 25 U/L Normal 14 - 59 U/L [facility]; [facility] Work Phone: AST [Catalytic activity/Vol] 31 U/L Normal 13 - 39 U/L [facility]; [facility] Work Phone: Bilirubin [Mass/Vol] 0.3 mg/dL Normal 0.2 - 1 .0 mg/dL [facility]; [facility] Work Phone: Bilirubin.conjugated [Mass/Vol] 0.1 mg/dL Normal 0.0 - 0.2 mg/dL [facility]; [facility] Work Phone: Cholesterol [Mass/Vol] 245 mg/dL Abnormal 0 - 2 40 mg/dL [facility]; [facility]. Work Phone: Cholesterol in HDL [Mass or moles/Vol] 73 mg/dL Abnormal 40 - 60 mg/dL [facility]; [facility] Work Phone: Cholesterol in LDL [Mass/Vol] 160 mg/dL Abnormal 0 - 129 mg/dL [facility]; [facility] Work Phone: Cholesterol.total/Erum sterol in HDL [Mass ratio] 3.4 {ratio} Normal 0.0 - 5.0 [facility]; [facility] Work Phone: Hepatic function 1999 panel Normal [facility]; [facility] Work Phone: Lipid 1995 panel Normal [facility]; [facility] Work Phone: Protein [Mass/Vol] 7.1 g/dL Normal 6.4 - 8.2 g/dL [facility]; [facility] Work Phone: T3/Triiodothyronine (T3) uptake index [Ratio] 36 % Abnormal 22 - 32 % [facility]; [facility] Work Phone: T4 [Mass/Vol] 6.0 ug/dL Normal 4.7 - 13.3 ug/dL [facility]; [facility] Work Phone: T4/Triiodothyronine (T3) uptake index [Mass ratio] 2.2 Normal 1.0 - 4.0 [facility]; [facility] Work Phone: Triglyceride [Mass/Vol] 59 mg/dL Normal 0 - 150 mg/dL [facility]; [facility] Work Phone: TSH Qn 1.64 m[IU]/L Normal 0.35 - 3.74 {uIU/ml} [facility]; [facility] Work Phone: Laboratory - Hematology and Cell countson 11-13-2022 HbA1c (Bld) [Mass fraction] 5.6 % Normal 4.3 - 5.6 % [facility]; [facility] Work Phone: No Panel Informationon 11-13 ALK PHOS 91 U/L Normal 46 - 116 U/L [facility]; [facility]. Work Phone: Hemoglobin A0 114 mg/dL Normal [facility]; [facility] Work Phone: T4 (THYROXINE) TOTAL Normal [facility]; [facility] Work Phone: Laboratory - Chemistry and C hemistry - challengeon 08-20-2021 Albumin BCP dye [Mass/Vol] 3.8 g/dL Normal 3.2 - 4.8 g/dL [facility]; [facility] Albumin/Globulin [Mass ratio] 1.1 {ratio} Normal 0.9 - 1.6 {ratio} [facility]; [facility] ALP [Catalytic activity/Vol] 78 U/L Normal 38 - 126 U/L [facility]; [facility]. ALT With P-5'-P [Catalytic activity/Vol] 20 U/L Normal 10 - 49 U/L [facility]; [facility]. AST With P-5'-P [Catalytic activity/Vol] 27 U/L Normal 8 - 34 U/L [facility]; [facility], [facility] Bilirubin [Mass/Vol] 0.80 mg/dL Normal 0.20 - 1.20 mg/dL [facility]; [facility]. Calcium [Mass/Vol] 10.0 mg/dL Normal 8.7 - 10. 4 mg/dL [facility], [facility]. Chloride [Moles/Vol] 106 mmol/L Normal 98 - 11 0 meq/L [facility]. Cholesterol [Mass/Vol] 244 mg/dL Abnormal 50 - 199 mg/dL [facility].; [facility]. Cholesterol in HDL [Mass/Vol] 63 mg/dL Abnormal 40 - 59 mg/dL [facility].; [facility]. Cholesterol in LDL [Mass/Vol] 164 mg/dL Abnormal 0 - 129 mg/dL [facility].; [facility], [facility]. CO2 [Moles/Vol] 30 mmol/L Normal 22 - 32 meq/L [facility].; [facility], [facility]. Creatinine [Mass/Vol] 0.68 mg/dL Normal 0.50 - 1.20 mg/dL [facility].; [facility], [facility]. GFR/1.73 sq M.predicted among blacks MDRD (S/P/Bld) [Vol rate/Area] mL/min/{1.73_m2} Normal [facility].; [facility]. Work Phone: GFR/1.73 sq M.predicted among non-blacks MDRD (S/P/Bld) [Vol rate/Area] mL/min/{1.73_m2} Normal [facility].; [facility], [facility]. Work Phone: Globulin (S) [Mass/Vol] 3.5 g/dL Normal 1.5 - 3.8 g/dL [facility].; [facility], [facility]. Glucose [Mass/Vol] 101 mg/dL Normal 82 - 115 mg/dL [facility].; [facility] Iron [Mass/Vol] 81 ug/dL Normal 50 - 170 ug/dL [facility]; [facility] Potassium [Moles/Vol] 3.9 mmol/L Normal 3.5 - 5.0 meq/L [facility]; [facility] Protein [Mass/Vol] 7.3 g/dL Normal 5.7 - 8.2 g/dL [facility]; [facility] Sodium [Moles/Vol] 139 mmol/L Normal 136 - 145 meq/L [facility]; [facility] Triglyceride [Mass/Vol] 83 mg/dL Normal 3 - 149 mg/dL [facility]; [facility] TSH Qn 1.030 m[IU]/L Normal 0.550 - 4.780 m[iU]/mL [facility]; [facility] Urea nitrogen [Mass/Vol] 15.0 mg/dL Normal 8.0 - 22.0 mg/dL [facility]; [facility] Urea nitrogen/Creatinine [Mass ratio] 22.1 {ratio} Abnormal 10.0 - 22.0 {ratio} [facility]; [facility] Laboratory - Hematology and Cell countson 08-20-2021 Basophils (Bld) [#/Vol] 0.10 {10^3/mcL} Normal 0 .00 - 0.27 {10^3/mcL} [facility]; [facility] Work Phone: Basophils/100 WBC (Bld) 1.3 % Normal 0.0 - 2.5 % [facility]; [facility] Work Phone: Eosinophils/100 WBC (Bld) 1.6 % Normal 0.0 - 6.0 % [facility]; [facility] Work Phone: Erythrocyte distribution width (RBC) [Ratio] 13.3 % Normal 11.5 - 15.5 % [facility]; [facility] Hematocrit (Bld) [Volume fraction] 39.7 % Normal 34.0 - 46.0 % [facility] Hemoglobin (Bld) [Mass/Vol] 13.6 g/dL Normal 12.0 - 16.0 g/dL [facility].; [facility], [facility] Lymphocytes (Bld) [#/Vol] 1.20 {10^3/mcL} Normal 0.90 - 4.32 {10^3/mcL} [facility] Work Phone: Lymphocytes/100 WBC (Bld) 26.2 % Normal 20.0 - 40.0 % [facility].; [facility] Work Phone: MCH (RBC) [Entitic mass] 31.2 pg Normal 27.0 - 33.0 pg [facility].; [facility], [facility]. MCHC (RBC) [Mass/Vol] 34.3 g/dL Normal 32.0 - 36.0 g/dL [facility].; [facility], [facility]. MCV (RBC) [Entitic vol] 90.8 fL Normal 80.0 - 99.0 fL [facility].; [facility], [facility] Monocytes (Bld) [#/Vol] 0.60 {10^3/mcL} Normal 0 .09 - 1.40 {10^3/mcL} [facility].; [facility], [facility] Work Phone: Monocytes/100 WBC (Bld) 12.5 % Normal 2.0 - 13.0 % [facility]. Work Phone: Neutrophils (Bld) [#/Vol] 2.60 {10^3/mcL} Normal 2.25 - 8.10 {10^3/mcL} [facility], [employer] Work Phone: Neutrophils/100 WBC (Bld) 58.4 % Normal 50.0 - 75.0 % [facility].; [facility] Work Phone: Platelet mean volume (Bld) [Entitic vol] 8.3 fL Normal 6.6 - 10.5 fL [facility].; [facility], [facility] Platelets (Bld) [#/Vol] 291 {10^3/mcL} Normal 15 0 - 450 {10^3/mcL} [facility], [facility]. RBC (Bld) [#/Vol] 4.37 {10^6/mcL} Normal 4.10 - 5.30 {10^6/mcL} [facility].; [facility], [facility]. WBC (Bld) [#/Vol] 4.50 {10^3/mcL} Normal 4.50 - 10.80 {10^3/mcL} [facility].; [facility], [facility]. No Panel Informationon 08-20 Electrolyte Balance 3.0 meq/L Abnormal 4.0 - 15 .0 meq/L [facility]; [facility] Eosinophil, Absolute 0.10 {10^3/mcL} Normal 0.00 - 0.65 {10^3/mcL} [facility].; [facility], [facility]. Work Phone: Laboratory - Chemistry and C hemistry - challengeon 01-29-2021 Albumin BCP dye [Mass/Vol] 3.7 g/dL Normal 3.2 - 4.8 g/dL [facility]; [facility] Albumin/Globulin [Mass ratio] 1.2 {ratio} Normal 0.9 - 1.6 {ratio} [facility]; [facility] ALP [Catalytic activity/Vol] 120 U/L Normal 38 - 126 U/L [facility] ALT With P-5'-P [Catalytic activity/Vol] 16 U/L Normal 10 - 49 U/L [facility]; [facility] AST With P-5'-P [Catalytic activity/Vol] 19 U/L Normal 8 - 34 U/L [facility]; [facility] Bilirubin [Mass/Vol] 0.70 mg/dL Normal 0.20 - 1.20 mg/dL [facility]; [facility] Calcium [Mass/Vol] 9.7 mg/dL Normal 8.7 - 10. 4 mg/dL [facility]; [facility] Chloride [Moles/Vol] 108 mmol/L Normal 98 - 11 0 meq/L [facility]; [facility] Cholesterol [Mass/Vol] 189 mg/dL Normal 50 - 199 mg/dL [facility]; [facility] Cholesterol in HDL [Mass/Vol] 72 mg/dL Abnormal 40 - 59 mg/dL [facility].; [facility]. Cholesterol in LDL [Mass/Vol] 100 mg/dL Normal 0 - 129 mg/dL [facility]; [facility] CO2 [Moles/Vol] 29 mmol/L Normal 22 - 32 meq/L [facility]; [facility] Creatinine [Mass/Vol] 0.60 mg/dL Normal 0.50 - 1.20 mg/dL [facility]; [place] [facility] GFR/1.73 sq M.predicted among blacks MDRD (S/P/Bld) [Vol rate/Area] mL/min/{1.73_m2} Normal [facility].; [facility]. Work Phone: GFR/1.73 sq M.predicted among non-blacks MDRD (S/P/Bld) [Vol rate/Area] mL/min/{1.73_m2} Normal [facility].; [facility]. Work Phone: Globulin (S) [Mass/Vol] 3.2 g/dL Normal 1.5 - 3.8 g/dL [facility].; [facility], [facility] Glucose [Mass/Vol] 100 mg/dL Normal 82 - 115 mg/dL [facility].; [facility], [facility]. Potassium [Moles/Vol] 4.0 mmol/L Normal 3.5 - 5.0 meq/L [facility].; [facility], [facility] Protein [Mass/Vol] 6.9 g/dL Normal 5.7 - 8.2 g/dL [facility].; [facility], [facility]. Sodium [Moles/Vol] 142 mmol/L Normal 136 - 145 meq/L [facility].; [facility], [facility]. Triglyceride [Mass/Vol] 83 mg/dL Normal 3 - 149 mg/dL [facility].; [facility], [facility]. Urea nitrogen [Mass/Vol] 10.0 mg/dL Normal 8.0 - 22.0 mg/dL [facility].; [facility], [facility]. Urea nitrogen/Creatinine [Mass ratio] 16.7 {ratio} Normal 10.0 - 22.0 {ratio} [facility].; [facility], [facility] No Panel Informationon 01-29 Electrolyte Balance 5.0 meq/L Normal 4.0 - 15 .0 meq/L [facility]; [facility] Laboratory - Chemistry and C hemistry - challengeon 07-20-2020 Anion gap [Moles/Vol] 12 mmol/L Normal 10 - 2 0 mmol/L [facility]; [facility] [place] Work Phone: Calcium [Mass/Vol] 8.0 mg/dL Abnormal 8.5 - 10. 1 mg/dL [facility]; [facility] [place] Work Phone: Chloride [Moles/Vol] 109 mmol/L Abnormal 98 - 10 7 mmol/L [facility]; [facility] [place] Work Phone: CO2 [Moles/Vol] 25.0 mmol/L Normal 21.0 - 32.0 mmol/L [facility]; [facility] [place] Work Phone: Creatinine [Mass/Vol] 0.6 mg/dL Normal 0.5 - 1.0 mg/dL [facility]; [facility] [place] Work Phone: GFR/1.73 sq M.predicted among blacks MDRD (S/P/Bld) [Vol rate/Area] mL/min/{1.73_m2} Normal 60 - 999 {ML/MINUTE} [facility]; [facility] [place] Work Phone: GFR/1.73 sq M.predicted MDRD (S/P/Bld) [Vol rate/Area] mL/min/{1.73_m2} Normal 60 - 999 {ML/MINUTE} [facility].; [facility]. Work Phone: Glucose [Mass/Vol] 110 mg/dL Abnormal 74 - 106 mg/dL [facility]; [facility] [place] Work Phone: Magnesium [Mass/Vol] 1.8 mg/dL Normal 1.8 - 2 .4 mg/dL [facility]; [facility] [place] Work Phone: Potassium [Moles/Vol] 3.9 mmol/L Normal 3.5 - 5.1 mmol/L [facility]; [facility] [place] Work Phone: Sodium [Moles/Vol] 142 mmol/L Normal 136 - 145 mmol/L [facility]; [facility] [place] Work Phone: Urea nitrogen [Mass/Vol] 14 mg/dL Normal 7 - 18 mg/dL [facility]; [facility] [place] Work Phone: Laboratory - Hematology and Cell countson 07-20-2020 Basophils (Bld) [#/Vol] 0.10 {x10EE3/UL} Normal 0.00 - 0.10 {x10EE3/UL} [facility]; [facility] [place] Work Phone: Basophils/100 WBC (Bld) 0.9 % Normal 0.0 - 2.0 % [facility]; [facility] [place] Work Phone: Eosinophils (Bld) [#/Vol] 0.10 {x10EE3/UL} Normal 0.00 - 0.50 {x10EE3/UL} [facility]; [facility] [place] Work Phone: Eosinophils/100 WBC (Bld) 1.6 % Normal 0.0 - 7.0 % [facility]; [facility]. Work Phone: Erythrocyte distribution width (RBC) [Ratio] 13.5 % Normal 12.0 - 15.6 % [facility]; [facility] [place] Work Phone: Hematocrit (Bld) [Volume fraction] 33.8 % Abnormal 34.0 - 46.0 % [facility]; [facility] [place] Work Phone: Hemoglobin (Bld) [Mass/Vol] 11.7 g/dL Abnormal 12.0 - 16.0 g/dL [facility]; [facility] [place] Work Phone: Lymphocytes (Bld) [#/Vol] 1.00 {x10EE3/UL} Normal 0.80 - 2.80 {x10EE3/UL} [facility]; [facility] [place] Work Phone: Lymphocytes/100 WBC (Bld) 16.6 % Abnormal 20.0 - 45.0 % [facility]; [facility] [place] Work Phone: MCH (RBC) [Entitic mass] 31 pg Normal 27 - 33 pg [facility]; [facility] [place] Work Phone: MCHC (RBC) [Mass/Vol] 35 {X10_3} Normal 32 - 3 6 {X10_3} [facility]; [facility] [place] Work Phone: MCV (RBC) [Entitic vol] 90 fL Normal 80 - 99 fL [facility]; [facility] [place] Work Phone: Monocytes (Bld) [#/Vol] 0.80 {x10EE3/UL} Normal 0.20 - 1.00 {x10EE3/UL} [facility]; [facility] [place] Work Phone: Monocytes/100 WBC (Bld) 13.2 % Abnormal 0.0 - 10.0 % [facility]; [facility]. Work Phone: Morphology Oneal (Bld) [Interp] N/A Normal [facility]; [facility] [place] Work Phone: Neutrophils (Bld) [#/Vol] 4.30 {x10EE3/UL} Normal 1.50 - 7.10 {x10EE3/UL} [facility]; [facility] [place] Work Phone: Neutrophils/100 WBC (Bld) 67.7 % Normal 46.0 - 76.0 % [facility]; [facility] [place] Work Phone: Platelet mean volume (Bld) [Entitic vol] 8.0 fL Normal 6.6 - 10.5 fL [facility]; [facility] [place] Work Phone: Platelets (Bld) [#/Vol] 212 {x10EE3/UL} Normal 1 50 - 450 {x10EE3/UL} [facility]; [facility] [place] Work Phone: RBC (Bld) [#/Vol] 3.77 {x_10EE6/UL} Abnormal 4.10 - 5.30 {x_10EE6/UL} [facility]; [facility] [place] Work Phone: WBC (Bld) [#/Vol] 6.3 {x_10EE3/UL} Normal 4.5 - 10.8 {x_10EE3/UL} [facility] Work Phone: No Panel Informationon 07-20 AGE 69 {years} Normal [facility]; [facility]. Work Phone: BMP with eGFR DAILY Normal [facility]; [facility] [place] Work Phone: MANUAL DIFF N/A Normal [facility]; [facility]. Work Phone: Laboratory - Chemistry and C hemistry - challengeon 07-18-2020 Albumin [Mass/Vol] 3.5 g/dL Normal 3.4 - 5.0 g/dL [facility]; [facility]. Work Phone: Albumin [Mass/Vol] 0.8 g/dL Abnormal 0.9 - 1.6 [facility]; [facility] [place] Work Phone: ALT [Catalytic activity/Vol] 55 U/L Normal 14 - 59 U/L [facility]; [facility] Work Phone: Anion gap [Moles/Vol] 9 mmol/L Abnormal 10 - 2 0 mmol/L [facility]; [facility]. Work Phone: AST [Catalytic activity/Vol] 68 U/L Abnormal 13 - 39 U/L [facility]; [facility] Work Phone: Bilirubin [Mass/Vol] 0.4 mg/dL Normal 0.2 - 1 .0 mg/dL [facility]; [facility] [place] Work Phone: Calcium [Mass/Vol] 8.7 mg/dL Normal 8.5 - 10. 1 mg/dL [facility]; [facility] [place] Work Phone: Chloride [Moles/Vol] 103 mmol/L Normal 98 - 10 7 mmol/L [facility]; [facility] [place] Work Phone: CO2 [Moles/Vol] 30.8 mmol/L Normal 21.0 - 32.0 mmol/L [facility]; [facility] [place] Work Phone: Creatinine [Mass/Vol] 0.8 mg/dL Normal 0.5 - 1.0 mg/dL [facility]; [facility] [place] Work Phone: GFR/1.73 sq M.predicted among blacks MDRD (S/P/Bld) [Vol rate/Area] mL/min/{1.73_m2} Normal 60 - 999 {ML/MINUTE} [facility]; [facility] [place] Work Phone: GFR/1.73 sq M.predicted MDRD (S/P/Bld) [Vol rate/Area] mL/min/{1.73_m2} Normal 60 - 999 {ML/MINUTE} [facility].; [facility]. Work Phone: Globulin (S) [Mass/Vol] 4.3 g/dL Abnormal 1.5 - 3.8 g/dL [facility]; [facility] [place] Work Phone: Glucose [Mass/Vol] 142 mg/dL Abnormal 74 - 106 mg/dL [facility]; [facility] [place] Work Phone: Potassium [Moles/Vol] 4.0 mmol/L Normal 3.5 - 5.1 mmol/L [facility]; [facility] [place] Work Phone: Protein [Mass/Vol] 7.8 g/dL Normal 6.4 - 8.2 g/dL [facility]; [facility] [place] Work Phone: Sodium [Moles/Vol] 139 mmol/L Normal 136 - 145 mmol/L [facility]; [facility] [place] Work Phone: Urea nitrogen (U) [Mass/Vol] 14.4 pg/mL Normal 0.0 - 51.4 pg/mL [facility]; [facility] [place] Work Phone: Urea nitrogen (U) [Mass/Vol] 88 pg/mL Normal 0 - 125 pg/mL [facility]; [facility] [place] Work Phone: Urea nitrogen (U) [Mass/Vol] 23.0 pg/mL Normal 0.0 - 51.4 pg/mL [facility]; [facility] [place] Work Phone: Urea nitrogen [Mass/Vol] 17 mg/dL Normal 7 - 18 mg/dL [facility]; [facility] [place] Work Phone: Urea nitrogen/Creatinine [Mass ratio] 21 {ratio} Normal 0 - 30 {ratio} [facility]; [facility] [place] Work Phone: Laboratory - Coagulationon 0 - INR Coag (PPP) [Relative time] 0.9 {INR} Normal 0.8 - 1.2 [facility]; [facility] [place] Work Phone: PT Coag (Bld) [Time] 10.6 s Normal 9.3 - 1 4.1 {sec} [facility]; [facility] [place] Work Phone: Laboratory - Hematology and Cell countson 07-18-2020 Basophils (Bld) [#/Vol] 0.00 {x10EE3/UL} Normal 0.00 - 0.10 {x10EE3/UL} [facility]; [facility] [place] Work Phone: Basophils/100 WBC (Bld) 0.7 % Normal 0.0 - 2.0 % [facility]; [facility] [place] Work Phone: Eosinophils (Bld) [#/Vol] 0.10 {x10EE3/UL} Normal 0.00 - 0.50 {x10EE3/UL} [facility]; [facility] [place] Work Phone: Eosinophils/100 WBC (Bld) 1.5 % Normal 0.0 - 7.0 % [facility]; [facility] [place] Work Phone: Erythrocyte distribution width (RBC) [Ratio] 13.6 % Normal 12.0 - 15.6 % [facility]; [facility] Work Phone: Hematocrit (Bld) [Volume fraction] 40.3 % Normal 34.0 - 46.0 % [facility]; [facility] Work Phone: Hemoglobin (Bld) [Mass/Vol] 13.9 g/dL Normal 12.0 - 16.0 g/dL [facility]; [facility] [place] Work Phone: Lymphocytes (Bld) [#/Vol] 0.90 {x10EE3/UL} Normal 0.80 - 2.80 {x10EE3/UL} [facility]; [facility] [place] Work Phone: Lymphocytes/100 WBC (Bld) 12.7 % Abnormal 20.0 - 45.0 % [facility]; [facility] [place] Work Phone: MCH (RBC) [Entitic mass] 31 pg Normal 27 - 33 pg [facility]; [facility] [place] Work Phone: MCHC (RBC) [Mass/Vol] 35 {X10_3} Normal 32 - 3 6 {X10_3} [facility]; [facility], [facility] Work Phone: MCV (RBC) [Entitic vol] 90 fL Normal 80 - 99 fL [facility]; [facility] [place] Work Phone: Monocytes (Bld) [#/Vol] 0.60 {x10EE3/UL} Normal 0.20 - 1.00 {x10EE3/UL} [facility]; [facility] [place] Work Phone: Monocytes/100 WBC (Bld) 8.5 % Normal 0.0 - 10.0 % [facility]; [facility], [facility]. Work Phone: Morphology Oneal (Bld) [Interp] N/A Normal [facility]; [facility] [place] Work Phone: Neutrophils (Bld) [#/Vol] 5.70 {x10EE3/UL} Normal 1.50 - 7.10 {x10EE3/UL} [facility]; [facility] Work Phone: Neutrophils/100 WBC (Bld) 76.6 % Abnormal 46.0 - 76.0 % [facility]; [facility] Work Phone: Platelet mean volume (Bld) [Entitic vol] 7.7 fL Normal 6.6 - 10.5 fL [facility]; [facility] [place] Work Phone: Platelets (Bld) [#/Vol] 284 {x10EE3/UL} Normal 1 50 - 450 {x10EE3/UL} [facility]; [facility] Work Phone: RBC (Bld) [#/Vol] 4.47 {x_10EE6/UL} Normal 4.10 - 5.30 {x_10EE6/UL} [facility]; [facility] Work Phone: WBC (Bld) [#/Vol] 7.4 {x_10EE3/UL} Normal 4.5 - 10.8 {x_10EE3/UL} [facility]; [facility] Work Phone: No Panel Informationon 07-18 AGE 69 {years} Normal [facility]; [facility] Work Phone: ALK PHOS 98 U/L Normal 46 - 116 U/L [facility]; [facility] Work Phone: CBC + DIFF Normal [facility]; [facility] [place] Work Phone: CMP with eGFR Normal [facility]; [facility] [place] Work Phone: D-DIMER QUANT 1034 ng/mL Abnormal 0 - 230 ng/mL [facility]; [facility] [place] Work Phone: D-DIMER, QUANTITATIVE Normal Eas [facility]; [facility] [place] Work Phone: MANUAL DIFF N/A Normal [facility]; [facility] [place] Work Phone: PROTHROMBIN TIME AND INR Normal [facility]; [facility] [place] Work Phone: Laboratory - Chemistry and C hemistry - challengeon 03-19-2018 Albumin BCP dye [Mass/Vol] 3.8 g/dL Normal 3.2 - 4.8 g/dL [facility]; [facility] Albumin/Globulin [Mass ratio] 1.1 {ratio} Normal 0.9 - 1.6 {ratio} [facility]; [facility] ALP [Catalytic activity/Vol] 76 U/L Normal 38 - 126 U/L [facility]; [facility] ALT With P-5'-P [Catalytic activity/Vol] 20 U/L Normal 10 - 49 U/L [facility]; [facility]. AST With P-5'-P [Catalytic activity/Vol] 23 U/L Normal 8 - 34 U/L [facility]; [facility] Bilirubin [Mass/Vol] 0.7 mg/dL Normal 0.2 - 1 .2 mg/dL [facility]; [facility], [facility]. Calcium [Mass/Vol] 9.2 mg/dL Normal 8.4 - 10. 1 mg/dL [facility].; [facility]. Chloride [Moles/Vol] 104 mmol/L Normal 98 - 11 0 meq/L [facility].; [facility]. Cholesterol [Mass/Vol] 240 mg/dL Abnormal 50 - 199 mg/dL [facility].; [facility]. Cholesterol in HDL [Mass/Vol] 68 mg/dL Abnormal 40 - 59 mg/dL [facility].; [facility]. Cholesterol in LDL [Mass/Vol] 159 mg/dL Abnormal 0 - 129 mg/dL [facility].; [facility]. CO2 [Moles/Vol] 27 mmol/L Normal 22 - 32 meq/L [facility].; [facility], [facility]. Creatinine [Mass/Vol] 0.66 mg/dL Normal 0.50 - 1.20 mg/dL [facility].; [facility], [facility]. GFR/1.73 sq M.predicted among blacks MDRD (S/P/Bld) [Vol rate/Area] mL/min/{1.73_m2} Normal [facility].; [facility]. Work Phone: GFR/1.73 sq M.predicted among non-blacks MDRD (S/P/Bld) [Vol rate/Area] mL/min/{1.73_m2} Normal [facility].; [facility], [facility]. Work Phone: Globulin (S) [Mass/Vol] 3.6 g/dL Normal 1.5 - 3.8 g/dL [facility].; [facility], [facility]. Glucose [Mass/Vol] 92 mg/dL Normal 82 - 115 mg/dL [facility].; [facility] Iron [Mass/Vol] 73 ug/dL Normal 37 - 170 ug/dL [facility]; [facility] Potassium [Moles/Vol] 3.9 mmol/L Normal 3.5 - 5.0 meq/L [facility]; [facility] Protein [Mass/Vol] 7.4 g/dL Normal 6.0 - 8.5 g/dL [facility]; [facility] Sodium [Moles/Vol] 140 mmol/L Normal 136 - 145 meq/L [facility]; [facility] Triglyceride [Mass/Vol] 63 mg/dL Normal 3 - 149 mg/dL [facility]; [facility] TSH Qn 1.510 m[IU]/L Normal 0.360 - 3.740 {mcIU/mL} [facility]; [facility] Urea nitrogen [Mass/Vol] 13.0 mg/dL Normal 8.0 - 22.0 mg/dL [facility]; [facility] Urea nitrogen/Creatinine [Mass ratio] 19.7 {ratio} Normal 10.0 - 22.0 {ratio} [facility]; [facility] Laboratory - Hematology and Cell countson 03-19-2018 Basophils (Bld) [#/Vol] 0.10 {10^3/mcL} Normal 0 .00 - 0.27 {10^3/mcL} [facility]; [facility] [place] Work Phone: Basophils/100 WBC (Bld) 1.5 % Normal 0.0 - 2.5 % [facility]; [facility] [place] Work Phone: Eosinophils/100 WBC (Bld) 1.2 % Normal 0.0 - 6.0 % [facility]; [facility] [place] Work Phone: Erythrocyte distribution width (RBC) [Ratio] 13.9 % Normal 11.5 - 15.5 % [facility]; [facility] Hematocrit (Bld) [Volume fraction] 39.1 % Normal 34.0 - 46.0 % [facility]; [facility] Hemoglobin (Bld) [Mass/Vol] 12.9 g/dL Normal 12.0 - 16.0 g/dL [facility].; [facility], [facility] Lymphocytes (Bld) [#/Vol] 1.20 {10^3/mcL} Normal 0.90 - 4.32 {10^3/mcL} [facility].; [facility] [place] Work Phone: Lymphocytes/100 WBC (Bld) 29.6 % Normal 20.0 - 40.0 % [facility]; [facility] [place] Work Phone: MCH (RBC) [Entitic mass] 29.3 pg Normal 27.0 - 33.0 pg [facility]; [facility], [facility]. MCHC (RBC) [Mass/Vol] 33.1 g/dL Normal 32.0 - 36.0 g/dL [facility].; [facility] MCV (RBC) [Entitic vol] 88.4 fL Normal 80.0 - 99.0 fL [place] [facility] [facility], [facility] Monocytes (Bld) [#/Vol] 0.50 {10^3/mcL} Normal 0 .09 - 1.40 {10^3/mcL} [facility].; [facility], [facility] Work Phone: Monocytes/100 WBC (Bld) 12.0 % Normal 2.0 - 13.0 % [facility].; [facility] HospitalAarden Pharmaceuticals [facility] Inc[facility] Work Phone: Neutrophils (Bld) [#/Vol] 2.20 {10^3/mcL} Abnormal 2.25 - 8.10 {10^3/mcL} [facility], [facility].; [facility] [employer] [facility] Work Phone: Neutrophils/100 WBC (Bld) 55.7 % Normal 50.0 - 75.0 % [facility]adelphiaA[facility] Pharmaceuticals Christiana HospitalHome [employer].; [facility] [employer] [facility] Work Phone: Platelet mean volume (Bld) [Entitic vol] 8.3 fL Normal 6.6 - 10.5 fL [facility]adelphiaAarden Pharmaceuticals [facility] HospitalHome Online [employer] Systems.; [facility] [employer] [facility] Platelets (Bld) [#/Vol] 292 {10^3/mcL} Normal 15 0 - 450 {10^3/mcL} [facility] [employer] Christiana HospitaliFrat Wars Inc.; [facility] RBC (Bld) [#/Vol] 4.42 {10^6/mcL} Normal 4.10 - 5.30 {10^6/mcL} [facility] [employer].; [facility] [facility] WBC (Bld) [#/Vol] 4.00 {10^3/mcL} Abnormal 4.50 - 10.80 {10^3/mcL} [facility] [employer] [facility].; [employer] [facility] [employer] No Panel Informationon 03-19 Electrolyte Balance 9.0 meq/L Normal 4.0 - 15 .0 meq/L [facility] Centrl.; [employer] [facility] [employer] Eosinophil, Absolute 0.00 {10^3/mcL} Normal 0.00 - 0.65 {10^3/mcL} [facility] [employer].; [facility] [employer] Work Phone: Office Visiton 08-29-2016 Documentation of current medications (procedure) Done Invalid Interpretation Code [facility] Work Phone: Documentation of current medications (procedure) T Invalid Interpretation Code [facility] Work Phone: Protein mass conc Done [facility] Work Phone: Protein mass conc T [facility] Work Phone: Tobacco smoking status NHIS Never [facility] Work Phone: Tobacco smoking status NHIS Never smoker [facility] Work Phone: Tobacco use CPHS Never smoker Invalid Interpretation Code [facility] Work Phone: Office Visiton 08-15-2016 Documentation of current medications (procedure) Done Invalid Interpretation Code [facility] Work Phone: Documentation of current medications (procedure) T Invalid Interpretation Code [facility] Work Phone: Tobacco smoking status NHIS Never Invalid Interpretation Code [facility] Work Phone: Tobacco use CPHS Never smoker Invalid Interpretation Code [facility] Work Phone: Office Visiton 08-01-2016 Documentation of current medications (procedure) Done Invalid Interpretation Code [facility] Work Phone: Documentation of current medications (procedure) T Invalid Interpretation Code [facility] Work Phone: Tobacco smoking status NHIS Never Invalid Interpretation Code [facility] Work Phone: Tobacco use CPHS Never smoker Invalid Interpretation Code [facility] Work Phone: Office Visit: f/u rt cristino alegria on 07-29-2016 Documentation of current medications (procedure) Done Invalid Interpretation Code [facility] Work Phone: Documentation of current medications (procedure) T Invalid Interpretation Code [facility] Work Phone: Tobacco smoking status NHIS Never Invalid Interpretation Code [facility] Work Phone: Tobacco use CPHS Never smoker Invalid Interpretation Code [facility] Work Phone: Office Visit: UC: Abe dobson 07-15-2016 Fall risk assessment No [facility] Work Phone: Laboratory - Chemistry and C hemistry - challengeon 03-05-2016 T3/Triiodothyronine (T3) uptake index [Ratio] 41 % Abnormal 22 - 32 % [facility]iFr[facility] [email or web address]; [facility] HospitalHome Online Income Systems Work Phone: T4 [Mass/Vol] 5.4 ug/dL Abnormal 6.0 - 12.2 ug/dL [facility]iFr[facility] [email or web address].[email or web address]; [facility] HospitalT[facility] Tap Work Phone: T4/Triiodothyronine (T3) uptake index [Mass ratio] 2.2 Normal 1.0 - 4.0 [facility]iFr[facility] [email or web address].com; [facility] HospitalT[facility] Tap Work Phone: TSH Qn 1.59 m[IU]/L Normal 0.34 - 5.60 {uIU/ml} [facility]iFr[facility] [email or web address].com; [facility] HospitalT[facility] Tap Work Phone: Laboratory - Blood bankon Albumin given [Vol] 3.8 g/dL Normal 3.2 - 4. 8 g/dL [facility]iFr[facility] [email or web address]; [facility] Laboratory - Chemistry and C hemistry - challengeon 03-13-2015 Albumin/Globulin [Mass ratio] 1.0 {ratio} Normal 0.9 - 1.6 [facility]; [facility] ALP [Catalytic activity/Vol] 93 U/L Normal 38 - 126 U/L [facility]iFr[facility]; [facility] HospitaliFr[facility] Wars Inc[employer] ALT [Catalytic activity/Vol] 26 U/L Normal 10 - 49 U/L [facility]; [facility] AST [Catalytic activity/Vol] 19 U/L Normal 8 - 34 U/L [facility]; [facility] Base excess Calc (BldMV) [Moles/Vol] 7.0 meq/L Normal 4.0 - 15.0 meq/L [facility]; [facility] Bilirubin direct and total panel [Mass/Vol] 0.4 mg/dL Normal 0.2 - 1.2 mg/dL [facility]; [facility] Calcium [Mass/Vol] 8.8 mg/dL Normal 8.4 - 10. 1 mg/dL [facility]; [facility] Chloride [Moles/Vol] 106 mmol/L Normal 98 - 11 0 meq/L [facility]; [facility] Cholesterol [Mass/Vol] 248 mg/dL Abnormal 50 - 199 mg/dL [facility]; [facility] Cholesterol in HDL [Mass/Vol] 55 mg/dL Normal 40 - 59 mg/dL [facility]; [facility] Cholesterol in LDL [Mass/Vol] 155 mg/dL Abnormal 0 - 129 mg/dL [facility].; [facility] CO2 [Moles/Vol] 26 mmol/L Normal 22 - 32 meq/L [facility]; [facility] Creatinine [Mass/Vol] 1.23 mg/dL Abnormal 0.50 - 1.20 mg/dL [facility]; [facility], [facility] Free T4 index Calc [Mass/Vol] 8.54 Normal 3.60 - 14.00 [facility]; [employer] [facility] Work Phone: GFR/1.73 sq M.predicted among blacks MDRD (S/P/Bld) [Vol rate/Area] 53 {mL/min/1.73m_2} Normal [facility].; [facility]. Work Phone: GFR/1.73 sq M.predicted among non-blacks MDRD (S/P/Bld) [Vol rate/Area] 44 {mL/min/1.73m_2} Normal [facility].; [facility], [facility]. Work Phone: Globulin (S) [Mass/Vol] 3.7 g/dL Normal 1.5 - 3.8 g/dL [facility].; [facility], [facility]. Glucose [Mass/Vol] 104 mg/dL Normal 82 - 115 mg/dL [facility].; [facility], [facility]. Iron [Mass/Vol] 53 ug/dL Normal 37 - 170 ug/dL [facility].; [facility], [facility]. Iron binding capacity [Mass/Vol] 355 ug/dL Normal 250 - 500 ug/dL [facility].; [facility], [facility]. Iron saturation [Mass fraction] 15 % Normal [facility].; [facility], [facility]. Potassium [Moles/Vol] 3.7 mmol/L Normal 3.5 - 5.0 meq/L [facility].; [facility], [facility]. Protein [Mass/Vol] 7.5 g/dL Normal 6.0 - 8.5 g/dL [facility].; [facility], [facility]. Sodium [Moles/Vol] 139 mmol/L Normal 136 - 145 meq/L [facility].; [facility], [facility]. T4 [Mass/Vol] 7.0 ug/dL Normal 4.8 - 13.9 ug/dL [facility].; [facility], [facility]. T4/Triiodothyronine (T3) uptake index [Mass ratio] 1.22 {ratio} Normal 0.76 - 1.23 {ratio} [facility]; [facility] Triglyceride [Mass/Vol] 190 mg/dL Abnormal 3 - 149 mg/dL [facility]; [facility] TSH Qn 0.95 m[IU]/L Normal 0.36 - 3.74 {mcIU/mL} [facility]; [facility] Urea nitrogen [Mass/Vol] 17.0 mg/dL Normal 8.0 - 22.0 mg/dL [facility]; [facility] Urea nitrogen/Creatinine [Mass ratio] 13.8 mg/mg Normal 10.0 - 22.0 [facility]; [facility] Laboratory - Hematology and Cell countson 03-13-2015 Basophils/100 WBC (Bld) 0.8 % Normal 0.0 - 2.5 % [facility]; [facility] Eosinophils/100 WBC (Bld) 1.5 % Normal 0.0 - 6.0 % [facility]; [facility] Erythrocyte distribution width (RBC) [Ratio] 12.7 % Normal 11.5 - 15.5 % [facility]; [facility] Hematocrit (Bld) [Volume fraction] 39.8 % Normal 34.0 - 46.0 % [facility]; [facility] Hemoglobin (Bld) [Mass/Vol] 13.3 g/dL Normal 12.0 - 16.0 g/dL [facility]; [facility] Lymphocytes/100 WBC (Bld) 26.4 % Normal 20.0 - 40.0 % [facility]; [facility], [facility] MCH (RBC) [Entitic mass] 30.1 pg Normal 27.0 - 33.0 pg [facility]; [facility], [facility]. MCHC (RBC) [Mass/Vol] 33.5 g/dL Normal 32.0 - 36.0 g/dL [facility], [facility].; [facility], [facility] MCV (RBC) [Entitic vol] 89.8 fL Normal 80.0 - 99.0 fL [facility], [facility].; [facility], [facility] Monocytes/100 WBC (Bld) 9.5 % Normal 2.0 - 13.0 % [facility], [facility].; [facility], [facility] Neutrophils (Bld) [#/Vol] 3.50 {10_3/mcL} Normal 1.90 - 7.90 {10_3/mcL} [facility], [facility].; [facility], [facility]. Neutrophils/100 WBC (Bld) 61.8 % Normal 50.0 - 75.0 % [facility], [facility].; [facility], Inc[facility] Platelet mean volume (Bld) [Entitic vol] 8.5 fL Normal 6.6 - 10.5 fL [facility] [employer] [facility] HospitaliFr[facility].; [facility], Inc[facility] Platelets (Bld) [#/Vol] 278 {10_3/mcL} Normal 15 0 - 450 {10_3/mcL} [facility] [employer] [facility].; [facility] [employer] [facility] RBC (Bld) [#/Vol] 4.43 {10_6/mcL} Normal 4.10 - 5.30 {10_6/mcL} [facility] [employer] [facility].; [facility] [employer] [facility] WBC (Bld) [#/Vol] 5.70 {10_3/mcL} Normal 4.50 - 10.80 {10_3/mcL} [facility] [employer] [facility].; [facility] [employer] [facility] Vital Signs Date Time Vital Sign Value Performing Clinician Facility 09-27-2024 14:57-0400 Body temperature 97.6 [degF] Johnson GUALLPA Work Phone: [facility] 09-27-2024 14:57-0400 Diastolic blood pressure 66 mm[Hg] Johnson Jauregui PA Work Phone: [facility] 09-27-2024 14:57-0400 Heart rate 81 /min Johnsonsarthak Jauregui PA Work Phone: [facility] 09-27-2024 14:57-0400 Respiratory rate 16 /min Johnson Jauregui PA Work Phone: [facility] 09-27-2024 14:57-0400 SaO2% (BldA) [Mass fraction] 94 % Johnsonsarthak Jauregui PA Work Phone: [facility] 09-27-2024 14:57-0400 Systolic blood pressure 138 mm[Hg] Johnson Jauregui PA Work Phone: [facility] 09-27-2024 14:40-0400 Body mass index (BMI) [Ratio] 22.1 kg/m2 Johnsonsarthak Jauregui PA Work Phone: [facility] 09-27-2024 14:40-0400 Body weight 56.7 kg Johnsonsarthak Jauregui PA Work Phone: [facility] 09-27-2024 13:08-0400 Body height 160.02 cm Johnsonsarthak Jauregui PA Work Phone: [facility] 09-24-2024 09:58-0400 Body height 160.02 cm AFIA WELDON RN [facility], [facility] [employer].; [facility] HospitaliFr[facility]. 09-24-2024 09:58-0400 Body mass index (BMI) [Ratio] 22.14 kg/m2 FAIA WELDON RN [facility]iFr[facility].; [facility] HospitaliFr[facility]. 09-24-2024 09:58-0400 Body surface area Derived from formula 1.58 m2 AFIA WELDON RN [facility] CenterHome [employer].; [facility] DIVISIONEnvisage Technologies [facility]iFr[facility]. 09-24-2024 09:58-0400 Body temperature 98 [degF] AFIA WELDON RN [facility]iFr[facility].; [facility] DIVISIONEnvisage Technologies [facility] at PinevilleHome [employer]. Comment on above: Method: Oral 09-24-2024 09:58-0400 Body weight 56.7 kg AFIA WELDON RN [facility] CenterHome [employer].; [facility] HospitalHome [employer]. 09-24-2024 09:58-0400 Diastolic blood pressure 75 mm[Hg] AFIA WELDON RN [facility] CenterHome [employer].; [facility] HospitalHome [employer]. Comment on above: Patient Position: Sitting; Cuff Location : Left Arm; Cuff Size: Standard 09-24-2024 09:58-0400 Heart rate 68 /min AFIA WELDON RN [facility] CenterHome [employer].; [facility] HospitalHome [employer]. Comment on above: Pattern: Regular 09-24-2024 09:58-0400 Inhaled oxygen concentration 21 % AFIA WELDON RN [facility] CenterHome [employer].; [facility] HospitalHome [employer]. Comment on above: Room air 09-24-2024 09:58-0400 SaO2% (BldA) [Mass fraction] 100 % AFIA WELDON RN [facility] CenterHome [employer].; [facility] HospitalHome [employer]. 09-24-2024 09:58-0400 Systolic blood pressure 116 mm[Hg] AFIA WELDON RN [facility] CenterHome [employer].; [facility] HospitalHome [employer]. Comment on above: Patient Position: Sitting; Cuff Location : Left Arm; Cuff Size: Standard 09-21-2024 03:02-0400 Body temperature 98 [degF] Johnson GUALLPA Work Phone: [facility] 09-21-2024 03:02-0400 Diastolic blood pressure 79 mm[Hg] Johnson GUALLPA Work Phone: [facility] 09-21-2024 03:02-0400 Heart rate 55 /min Johnson GUALLPA Work Phone: [facility] 09-21-2024 03:02-0400 Respiratory rate 14 /min Johnson GUALLPA Work Phone: [facility] 09-21-2024 03:02-0400 SaO2% (BldA) [Mass fraction] 100 % Johnson Jauregui PA Work Phone: [facility] 09-21-2024 03:02-0400 Systolic blood pressure 111 mm[Hg] Johnson Jauregui PA Work Phone: [facility] 09-20-2024 20:31-0400 Body height 160.02 cm Johnson Jauregui PA Work Phone: [facility] 09-20-2024 20:31-0400 Body mass index (BMI) [Ratio] 22.3 kg/m2 Johnson Jauregui PA Work Phone: [facility] 09-20-2024 20:31-0400 Body weight 57.24 kg Johnson Jauregui PA Work Phone: [facility] 02-04-2023 14:08-0500 Body height 160.02 cm ANNA DEL ROSARIO RN [facility], Inc.; [facility] HospitaliFr[facility] Wars [facility]. 02-04-2023 14:08-0500 Body mass index (BMI) [Ratio] 21.61 kg/m2 ANNA DEL ROSARIO RN [facility], Inc.; [facility] HospitaliFr[facility]. 02-04-2023 14:08-0500 Body surface area Derived from formula 1.57 m2 ANNA DEL ROSARIO RN [facility], Inc.; [facility] HospitaliFrat Wars [facility]. 02-04-2023 14:08-0500 Body weight 55.34 kg ANNA DEL ROSARIO RN [facility] [employer] [facility], Inc.; [facility] HospitalHome [employer]. 02-04-2023 14:08-0500 Diastolic blood pressure 68 mm[Hg] ANNA DEL ROSARIO RN [facility], [facility].; [facility] DIVISIONEnvisage Technologies [facility] [employer] Christian[facility] HospitalHome [employer]. Comment on above: Patient Position: Sitting; Cuff Location : Left Arm; Cuff Size: Standard 02-04-2023 14:08-0500 Heart rate 83 /min ANNA DEL ROSARIO RN [facility] [employer] [facility], Inc.; [facility] HospitalHome [employer]. Comment on above: Pattern: Regular 02-04-2023 14:08-0500 Systolic blood pressure 111 mm[Hg] ANNA DEL ROSARIO RN [facility]; [facility] Comment on above: Patient Position: Sitting; Cuff Location : Left Arm; Cuff Size: Standard 09-09-2022 14:48-0400 Body height 160.02 cm Iman WISE MD Work Phone: [facility] [email or web address]; [facility] 09-09-2022 14:48-0400 Body mass index (BMI) [Ratio] 21.19 kg/m2 Iman WISE MD Work Phone: [facility] CenteriFr[facility] [email or web address]; [facility] 09-09-2022 14:48-0400 Body surface area Derived from formula 1.55 m2 Iman WISE MD Work Phone: [facility] CenteriFr[facility] [email or web address]; [facility]iFr[facility] 09-09-2022 14:48-0400 Body weight 54.25 kg Iman WISE MD Work Phone: [facility] CenterT[facility]; [facility]iFr[facility]. 09-09-2022 14:48-0400 Diastolic blood pressure 69 mm[Hg] Iman WISE MD Work Phone: [facility] CenteriFr[facility] [email or web address]; [facility] HospitalHome [employer]. Comment on above: Patient Position: Sitting; Cuff Location : Left Arm; Cuff Size: Standard 09-09-2022 14:48-0400 Heart rate 69 /min Iman WISE MD Work Phone: [facility] CenterT[facility]; [facility] HospitalHome [employer]. Comment on above: Pattern: Regular 09-09-2022 14:48-0400 Systolic blood pressure 114 mm[Hg] Iman WISE MD Work Phone: [facility] CenterT[facility]; [facility], [employer]. Comment on above: Patient Position: Sitting; Cuff Location : Left Arm; Cuff Size: Standard 01-19-2022 10:040 Body height 160.02 cm Milly Ritchie RN [facility] CenterHome [employer].; [facility] Inc[facility] 01-19-2022 10:01-0400 Body mass index (BMI) [Ratio] 21.61 kg/m2 Milly Ritchie RN [facility]iFr[facility].; [facility], [facility]. 01-19-2022 10:01-0400 Body surface area Derived from formula 1.57 m2 Milly Ritchie RN [facility] CenteriFr[facility].; [facility], [facility]. 01-19-2022 10:01-0400 Body temperature 99.3 [degF] Milly Ritchie RN [facility] CenterHome [employer].; [facility], [employer]. Comment on above: Method: Oral 01-19-2022 10:-0400 Body weight 55.34 kg Milly Ritchie RN [facility] CenterHome [employer].; [facility] Inc[facility] 01-19-2022 10:01-0400 Diastolic blood pressure 74 mm[Hg] Milly Ritchie RN [facility] CenterHome [employer].; [facility], [employer]. Comment on above: Patient Position: Sitting; Cuff Location : Left Arm; Cuff Size: Large 01-19-2022 10:-0400 Heart rate 78 /min Milly Ritchie RN [facility] CenterHome [employer].; [facility] HospitalHome [employer]. Comment on above: Pattern: Regular 01-19-2022 10:01-0400 Inhaled oxygen concentration 21 % Milly Ritchie RN [facility] CenterHome [employer].; [facility], [employer]. Comment on above: Room air 01-19-2022 10:01-0400 SaO2% (BldA) [Mass fraction] 94 % Milly Ritchie RN [facility] CenterHome [employer].; [facility], Inc[facility] 01-19-2022 10:01-0400 Systolic blood pressure 109 mm[Hg] Milly Castillo [facility] [employer].; [employer] [facility], [employer]. Comment on above: Patient Position: Sitting; Cuff Location : Left Arm; Cuff Size: Large 01-12-2022 11:16040 Body height 160.02 cm AFIA WELDON RN [facility] [employer].; [employer] [facility] 01-12-2022 11:16-0400 Body mass index (BMI) [Ratio] 21.97 kg/m2 AFIA WELDON RN [facility] [employer] [facility], [employer].; [employer] [facility] 01-12-2022 11:[id number] Body surface area Derived from formula 1.58 m2 AFIA WELDON RN [facility] [employer] [facility], [employer].; [employer] [facility] 01-12-2022 11:160400 Body temperature 99.6 [degF] AFIA WELDON RN [facility] [employer] [facility], [employer].; [employer] [facility] Comment on above: Method: Oral 01-12-2022 11:[id number] Body weight 56.25 kg AFIA WELDON RN [facility] [employer] [facility], [employer].; [employer] [facility] 01-12-2022 11:16-0400 Diastolic blood pressure 69 mm[Hg] AFIA WELDON RN [facility] [employer] [facility], [employer].; [employer] [facility], [employer]. Comment on above: Patient Position: Sitting; Cuff Location : Left Arm; Cuff Size: Standard 01-12-2022 11:16-0400 Heart rate 85 /min AFIA WELDON RN [facility], [facility] Social.; [employer] [facility]. Comment on above: Pattern: Regular 01-12-2022 11:16-0400 Inhaled oxygen concentration 21 % AFIA WELDON RN [facility], Inc.; [employer] [facility], Inc. Comment on above: Room air 01-12-2022 11:16-0400 SaO2% (BldA) [Mass fraction] 95 % AFIA WELDON RN [facility] [employer].; [facility] [employer]. 01-12-2022 11:16-0400 Systolic blood pressure 114 mm[Hg] AF[facility] WELD[facility] RN [facility].; [facility] [employer]. Comment on above: Patient Position: Sitting; Cuff Location : Left Arm; Cuff Size: Standard 08-20-2021 13:06-0400 Body height 160.02 cm ANNA DEL ROSARIO RN [facility], Inside Social.; [facility] [employer] 08-20-2021 13:06-0400 Body mass index (BMI) [Ratio] 21.43 kg/m2 ANNA DEL ROSARIO RN [facility] [employer].; [facility]. 08-20-2021 13:06-0400 Body surface area Derived from formula 1.56 m2 ANNA DEL ROSARIO RN [facility].; [facility] [employer]. 08-20-2021 13:06-040 Body weight 54.89 kg ANNA DEL ROSARIO RN [facility] [facility] [employer].; [facility] [employer]. 08-20-2021 13:06-0400 Diastolic blood pressure 68 mm[Hg] ANNA GRATE DANNY [facility] [employer].; [facility] [employer]. Comment on above: Patient Position: Sitting; Cuff Location : Left Arm; Cuff Size: Standard 08-20-2021 13:06-0400 Heart rate 60 /min ANNA DEL ROSARIO RN [facility] [employer] [facility] Hospital[facility] [employer].; [facility] [employer]. Comment on above: Pattern: Regular 08-20-2021 13:06-0400 Systolic blood pressure 109 mm[Hg] ANNA DEL ROSARIO RN [facility] [employer].; [employer] [facility] [employer]. Comment on above: Patient Position: Sitting; Cuff Location : Left Arm; Cuff Size: Standard 01-29-2021 09:05-0400 Body height 160.02 cm Angie Cardona RN [facility], Inside Social.; [facility] Social. 01-29-2021 09:05-0400 Body mass index (BMI) [Ratio] 23.28 kg/m2 Angie Cardona RN [facility], Inc.; [facility], [facility]. 01-29-2021 09:05-0400 Body surface area Derived from formula 1.62 m2 Angie Cardona RN [facility], [facility].; [facility] Inc[facility] 01-29-2021 09:05-0400 Body weight 59.6 kg Angie Cardona RN [facility], Inc.; [facility], Inc[facility] 01-29-2021 09:05-0400 Diastolic blood pressure 76 mm[Hg] Angie Cardona RN [facility], [facility].; [facility], Inc. Comment on above: Patient Position: Sitting; Cuff Location : Left Arm; Cuff Size: Standard 01-29-2021 09:05-0400 Heart rate 56 /min Angie Cardona RN [facility], Inc.; [facility], Inc. Comment on above: Pattern: Regular 01-29-2021 09:05-0400 Inhaled oxygen concentration 21 % Angie Cardona RN [facility], [facility].; [facility], Inc. Comment on above: Room air 01-29-2021 09:05-0400 SaO2% (BldA) [Mass fraction] 98 % Angie Cardona RN [facility], [facility].; [facility], Inc[facility] 01-29-2021 09:05-0400 Systolic blood pressure 132 mm[Hg] Angie Cardona RN [facility], [facility].; [facility], Inc. Comment on above: Patient Position: Sitting; Cuff Location : Left Arm; Cuff Size: Standard 10-14-2020 10:47-0400 Body height 160.02 cm Angie Cardona RN [facility], Inc.; [facility] Inc[facility] 10-14-2020 10:47-0400 Body mass index (BMI) [Ratio] 22.5 kg/m2 Angie Cardona RN [facility], Inc.; [facility] Inc[facility] 10-14-2020 10:47-0400 Body surface area Derived from formula 1.59 m2 Angie Cardona RN [facility], Inc.; [facility] 10-14-2020 10:47-0400 Body weight 57.61 kg Angie Cardona RN [facility], Inc.; [facility] 10-14-2020 10:47-0400 Diastolic blood pressure 64 mm[Hg] Angie Cardona RN [facility], Inc.; [facility] Inc[facility] Comment on above: Patient Position: Sitting; Cuff Location : Left Arm; Cuff Size: Standard 10-14-2020 10:47-0400 Heart rate 66 /min Angie Cardona RN [facility], Inc.; [facility], Inc. Comment on above: Pattern: Regular 10-14-2020 10:47-0400 Systolic blood pressure 108 mm[Hg] Angie Cardona RN [facility], Inc.; [facility], Inc. Comment on above: Patient Position: Sitting; Cuff Location : Left Arm; Cuff Size: Standard 08-07-2020 13:51-0400 Body height 160.02 cm Angie Cardona RN [facility], Inc.; [facility] 08-07-2020 13:51-0400 Body mass index (BMI) [Ratio] 22.5 kg/m2 Angie Cardona RN [facility], [facility].; [facility] 08-07-2020 13:51-0400 Body surface area Derived from formula 1.59 m2 Angie Cardona RN [facility], [facility].; [facility] 08-07-2020 13:51-0400 Body weight 57.61 kg Angie Cardona RN [facility], Inc.; [facility] 08-07-2020 13:51-0400 Diastolic blood pressure 67 mm[Hg] Angie Cardona RN [facility], [facility].; [facility] Inc. Comment on above: Patient Position: Sitting; Cuff Location : Left Arm; Cuff Size: Standard 08-07-2020 13:51-0400 Heart rate 72 /min Angie Cardona RN [facility], Inside Social.; [facility], Inside Social. Comment on above: Pattern: Regular 08-07-2020 13:51-0400 Inhaled oxygen concentration 21 % Angie Cardona RN [facility] [employer].; [facility], [facility] Social. Comment on above: Room air 08-07-2020 13:51-0400 SaO2% (BldA) [Mass fraction] 97 % Angie Cardona RN [facility] [employer].; [facility], Inc[facility] 08-07-2020 13:51-0400 Systolic blood pressure 115 mm[Hg] Angie Cardona RN [facility] [employer].; [facility] [employer]. Comment on above: Patient Position: Sitting; Cuff Location : Left Arm; Cuff Size: Standard 03-19-2018 13:15-0500 Body height 160.02 cm Iman WISE MD Work Phone: [facility] [employer].; [facility] [employer]. 03-19-2018 13:15-0500 Body mass index (BMI) [Ratio] 22.85 kg/m2 Iman WISE MD Work Phone: [facility] [employer].; [facility] [employer]. 03-19-2018 13:15-0500 Body surface area Derived from formula 1.61 m2 Iman WISE MD Work Phone: [facility] [employer].; [employer] [facility] [employer]. 03-19-2018 13:15-0500 Body weight 58.51 kg Iman WISE MD Work Phone: [facility] [employer].; [facility] [employer]. 03-19-2018 13:15-0500 Diastolic blood pressure 72 mm[Hg] Iman WISE MD Work Phone: [facility] [employer].; [employer] [facility] [employer]. Comment on above: Patient Position: Sitting; Cuff Location : Left Arm; Cuff Size: Large 03-19-2018 13:15-0500 Heart rate 61 /min Iman WISE MD Work Phone: [employer]. Comment on above: Pattern: Regular 03-19-2018 13:15-0500 Systolic blood pressure 122 mm[Hg] Iman WISE MD Work Phone: [employer].; [employer]. Comment on above: Patient Position: Sitting; Cuff Location : Left Arm; Cuff Size: Large 11-25-2016 14:04-0400 Body height 160.02 cm Iman WISE MD Work Phone: [employer].; [employer]. 11-25-2016 14:04-0400 Body mass index (BMI) [Ratio] 23.74 kg/m2 Iman WISE MD Work Phone: [employer].; [employer]. 11-25-2016 14:04-0400 Body surface area Derived from formula 1.63 m2 Iman WISE MD Work Phone: [employer].; [employer]. 11-25-2016 14:04-0400 Body temperature 98 [degF] Iman WISE MD Work Phone: [employer].; [employer]. Comment on above: Method: Oral 11-25-2016 14:04-0400 Body weight 60.78 kg Iman WISE MD Work Phone: [employer].; [employer]. 11-25-2016 14:04-0400 Diastolic blood pressure 78 mm[Hg] Iman WISE MD Work Phone: [employer].; [employer]. Comment on above: Patient Position: Sitting; Cuff Location : Left Arm; Cuff Size: Large 11-25-2016 14:04-0400 Heart rate 67 /min Iman WISE MD Work Phone: [employer].; [employer]. Comment on above: Pattern: Regular 11-25-2016 14:04-0400 Systolic blood pressure 127 mm[Hg] Iman WISE MD Work Phone: [employer].; [employer]. Comment on above: Patient Position: Sitting; Cuff Location : Left Arm; Cuff Size: Large 09-26-2016 10:21-0400 Body height 161.29 cm Iman WISE MD Work Phone: [employer].; [employer]. 09-26-2016 10:21-0400 Body mass index (BMI) [Ratio] 23.71 kg/m2 Iman WISE MD Work Phone: [employer].; [employer]. 09-26-2016 10:21-0400 Body surface area Derived from formula 1.65 m2 Iman WISE MD Work Phone: [employer].; [employer]. 09-26-2016 10:21-0400 Body weight 61.69 kg Iman WISE MD Work Phone: [employer].; [employer]. 09-26-2016 10:21-0400 Diastolic blood pressure 73 mm[Hg] Iman WISE MD Work Phone: [employer].; [employer]. Comment on above: Patient Position: Sitting; Cuff Location : Left Arm; Cuff Size: Large 09-26-2016 10:21-0400 Heart rate 66 /min Iman WISE MD Work Phone: [employer].; [employer]. Comment on above: Pattern: Regular 09-26-2016 10:21-0400 Systolic blood pressure 119 mm[Hg] Iman WISE MD Work Phone: [facility]; [facility] Comment on above: Patient Position: Sitting; Cuff Location : Left Arm; Cuff Size: Large 07-15-2016 12:21-0400 BMI (Body Mass Index) 23.57 kg/m2 Owen Brown [facility] Work Phone: 07-15-2016 12:21-0400 Body Temperature 98.2 [degF] Owen [facility] Work Phone: 07-15-2016 12:21-0400 BP Diastolic 82 mm[Hg] Owen Brown [facility] Work Phone: 07-15-2016 12:21-0400 BP Systolic 110 mm[Hg] Owen Brown [facility] Work Phone: 07-15-2016 12:21-0400 Height 161.29 cm Owen Brown [facility] Work Phone: 07-15-2016 12:21-0400 Pulse (Heart Rate) 70 /min Owen Brown [facility] enter [facility] Work Phone: 07-15-2016 12:21-0400 Pulse Oximetry 98 % Owen Brown [facility] Work Phone: 07-15-2016 12:21-0400 Respiratory Rate 12 /min Owen [facility] ter [facility] Work Phone: 07-15-2016 12:21-0400 Weight 61.33 kg Owen Brown [facility] Work Phone: 04-13-2015 15:11-0500 Body height 163.19 cm Iman WISE MD Work Phone: [facility] [employer].; [employer] 04-13-2015 15:11-0500 Body mass index (BMI) [Ratio] 23.16 kg/m2 Iman WISE MD Work Phone: [employer]; [employer] 04-13-2015 15:11-0500 Body surface area Derived from formula 1.67 m2 Iman WISE MD Work Phone: [employer]; [employer] 04-13-2015 15:11-0500 Body weight 61.69 kg Iman WISE MD Work Phone: [employer]; [employer] 04-13-2015 15:11-0500 Diastolic blood pressure 75 mm[Hg] Iman WISE MD Work Phone: [employer]; [employer] Comment on above: Patient Position: Sitting; Cuff Location : Left Arm; Cuff Size: Large 04-13-2015 15:11-0500 Heart rate 67 /min Iman WISE MD Work Phone: [employer]; [employer] Comment on above: Pattern: Regular 04-13-2015 15:11-0500 Systolic blood pressure 121 mm[Hg] Iman WISE MD Work Phone: [employer]; [employer] Comment on above: Patient Position: Sitting; Cuff Location : Left Arm; Cuff Size: Large 03-13-2015 15:30-0500 Body height 160.02 cm Iman WISE MD Work Phone: [employer]; [employer] 03-13-2015 15:30-0500 Body mass index (BMI) [Ratio] 24.27 kg/m2 Iman WISE MD Work Phone: [employer]; [employer] 03-13-2015 15:30-0500 Body surface area Derived from formula 1.65 m2 Iman WISE MD Work Phone: [facility]; [employer] 03-13-2015 15:30-0500 Body temperature 98 [degF] Iman WISE MD Work Phone: [employer]; [employer] Comment on above: Method: Oral 03-13-2015 15:30-0500 Body weight 62.14 kg Iman WISE MD Work Phone: [employer]; [employer] 03-13-2015 15:30-0500 Diastolic blood pressure 82 mm[Hg] Iman WISE MD Work Phone: [employer]; [employer] Comment on above: Patient Position: Sitting; Cuff Location : Left Arm; Cuff Size: Large 03-13-2015 15:30-0500 Heart rate 67 /min Iman WISE MD Work Phone: [employer]; [employer] Comment on above: Pattern: Regular 03-13-2015 15:30-0500 Systolic blood pressure 129 mm[Hg] Iman WISE MD Work Phone: [employer]; [employer] Comment on above: Patient Position: Sitting; Cuff Location : Left Arm; Cuff Size: Large 05-13-2013 14:43-0500 Body temperature 98.9 [degF] Iman WISE MD Work Phone: [employer]; [employer] Comment on above: Method: Oral 05-13-2013 14:43-0500 Body weight 60.33 kg Iman WISE MD Work Phone: [employer]; [employer] 05-13-2013 14:43-0500 Diastolic blood pressure 72 mm[Hg] Iman WISE MD Work Phone: [facility]; [employer] [facility] [employer] Comment on above: Patient Position: Sitting; Cuff Location : Left Arm; Cuff Size: Large 05-13-2013 14:43-0500 Heart rate 70 /min Iman WISE MD Work Phone: [employer] [facility]; [employer] [employer] Comment on above: Pattern: Regular 05-13-2013 14:43-0500 Systolic blood pressure 115 mm[Hg] Iman WISE MD Work Phone: [employer] [facility]; [employer] Comment on above: Patient Position: Sitting; Cuff Location : Left Arm; Cuff Size: Large Encounters Encounter Date Encounter Type Care Provider Facility Start: 09-27-2024 Evaluation and management of inpatient Dr. Azam Russell DO [facility] Work Phone: Start: 09-27-2024 observation encounter Johnson GUALLPA Work Phone: [facility] Start: 09-27-2024 Review Iman WISE MD [facility] [facility] Start: 09-26-2024 ambulatory Iman WISE [facility] Start: 09-25-2024 End: 09-25-2024 Office outpatient visit 15 minutes Iman WISE MD Work Phone: [employer] MANZ[employer]ITA [employer] Start: 09-24-2024 Review Iman WISE MD Work Phone[facility] [employer] [facility] [employer] Start: 09-24-2024 Review Iman WISE MD Work Phone: [place] [employer] [facility] Start: 09-24-2024 Emergency department patient visit Iman WISE MD Work Phone: [facility] Start: 09-24-2024 End: 09-25-2024 Office outpatient visit 15 minutes Iman WISE MD Work Phone: [employer] Start: 09-24-2024 End: 09-24-2024 ambulatory Iman WISE [facility] Start: 09-20-2024 End: 09-21-2024 Emergency department patient visit Johnson GUALLPA Work Phone: -Emergency Department Work Phone: Start: 02-04-2023 End: 02-04-2023 Office outpatient visit 10 minutes Iman WISE MD Work Phone: [employer] Start: 10-28-2022 End: 10-28-2022 Historical Summary Iman WISE MD Work Phone: [employer] Start: 09-09-2022 End: 09-09-2022 Office outpatient visit 10 minutes Iman WISE MD Work Phone: [employer] Start: 01-19-2022 End: 01-19-2022 Office outpatient visit 10 minutes Iman WISE MD Work Phone: [employer]. Start: 01-12-2022 End: 01-12-2022 Office outpatient visit 10 minutes Iman WISE MD Work Phone: [employer]. Start: 08-21-2021 End: 08-21-2021 Results Review Iman WISE MD Work Phone: [employer] Start: 08-20-2021 End: 08-20-2021 Office outpatient visit 10 minutes Iman WISE MD Work Phone: [employer] Start: 01-30-2021 End: 01-30-2021 Nutrition therapy Iman WISE MD Work Phone: [employer]. Start: 01-29-2021 End: 01-29-2021 Office outpatient visit 10 minutes Iman WISE MD Work Phone: [employer]. Start: 11-02-2020 End: 11-02-2020 Procedure Order Iman WISE MD Work Phone: [employer]. Start: 10-14-2020 End: 10-14-2020 Office outpatient visit 10 minutes Iman WISE MD Work Phone: [employer]. Start: 08-07-2020 End: 08-07-2020 Office outpatient visit 10 minutes Iman WISE MD Work Phone: [employer]. Start: 03-20-2018 End: 03-20-2018 Results Review Iman WISE MD Work Phone: [employer]. Start: 03-19-2018 End: 03-19-2018 Office outpatient visit 15 minutes Iman WISE MD Work Phone: [employer]. Start: 11-25-2016 End: 11-25-2016 Historical Summary Iman WISE MD Work Phone: [employer]. Start: 11-25-2016 End: 11-25-2016 Office outpatient visit 15 minutes Iman WISE MD Work Phone: [employer]. Start: 09-26-2016 End: 09-26-2016 Office outpatient visit 10 minutes Iman WISE MD Work Phone: [employer]. Start: 04-13-2015 End: 04-13-2015 Office outpatient visit 10 minutes Iman WISE MD Work [facility] Start: 03-13-2015 End: 03-13-2015 Results Review Iman WISE MD Work Phone: [facility] Start: 03-13-2015 End: 03-13-2015 Office outpatient visit 10 minutes I[facility] WISE MD [facility] Start: 05-13-2013 End: 05-13-2013 Patient encounter procedure Iman WISE MD Work Phone: [facility] Start: 10-30-2011 End: 10-30-2011 Historical Summary Iman WISE MD Work Phone: [facility] Procedures Date Procedure Procedure Detail Performing Clinician Start: 09-20-2024 X-ray of chest, PA a nd lateral views Johnson GUALLPA Work Phone: Start: 09-20-2024 Urnls dip stick/tabl et reagent auto microscopy Johnson GUALLPA Work Phone: Start: 09-20-2024 CT of abdomen and pe lvis without contrast Johnson GUALLPA Work Phone: Start: 09-20-2024 CT of head without contrast Johnson GUALLPA Work Phone: Start: 09-20-2024 Estimated creatinine clearance Johnson GUALLPA Work Phone: Start: 02-04-2023 End: 02-04-2023 Dischrg meds reconciled w/current med list DINO ALEXANDRA POLICY INTERN-BC Work Phone: Start: 02-04-2023 End: 02-04-2023 No Known Past Surgical History ANNA DEL ROSARIO RN Start: 10-23-2022 End: 10-23-2022 Screening colonoscopy ANNA DEL ROSARIO RN Comment on above: Normal. Start: 09-09-2022 End: 09-09-2022 Dischrg meds reconciled w/current med list DINO ALEXANDRA POLICY INTERN[employer]BC Work Phone: Start: 01-19-2022 End: 01-19-2022 Dischrg meds reconciled w/current med list Palmira ALEXANDRA MD Work Phone: Start: 01-29-2021 End: 01-29-2021 Dischrg meds reconciled w/current med list TINO FARNSWORTH MD Work Phone: Start: 10-14-2020 End: 10-14-2020 Dischrg meds reconciled w/current med list TINO FARNSWORTH MD Work Phone: Start: 10-14-2020 End: 10-14-2020 Urinary Incontinence Iman WISE MD Work Phone: Comment on above: Negative. Start: 08-07-2020 End: 08-07-2020 Dischrg meds reconciled w/current med list TINO FARNSWORTH MD Work Phone: Start: 11-15-2016 End: 11-15-2016 Echocardiography ADRIAN ISSA POLICY INTERN-C Comment on above: mild MR, EF >60% ([facility] inpt) Start: 05-13-2013 End: 05-13-2013 Therapeutic prophylactic/dx injection subq/im MARCI FARNSWORTH MD Work Phone: Start: 05-13-2013 End: 05-13-2013 Vitamin b12 injection MARCI FARNSWOTRH MD Work Phone: Plan of Treatment Date Care Activity Detail Author Start: 10-05-2024 Follow-up encounter Medical; R E CHECK OR FOLLOW-UP MEDICAL ILLNESS - [facility] [employer] [facility] [employer]. Start: 05-Oct-2024 10:45-04:00 MD Iman WISE Appointment Request [facility] [employer]. Start: 10-01-2024 Basic metabolic pane l calcium total BMP (75991) Start: 01-Oct-2024 11:39-04:00 Request [facility] [employer].; [place] MANZANITA - [facility]. Start: 09-27-2024 [facility] Start: 09-27-2024 Folic acid measurement, RBC [facility] Start: 09-27-2024 Verification routine [facility] Start: 09-27-2024 Admission procedure [facility] Start: 09-27-2024 Hospital admission, emergency, from emergency room, medical nature [facility] Start: 09-27-2024 [facility] Start: 09-24-2024 Mri brain brain stem w/o w/contrast material MRI BRAIN W/O & W CONTRAST (86020) - IV Contrast per Protocol Start: 24-Sep-2024 Intent [employer] [facility] [employer].; [facility] Social. Start: 09-24-2024 C-reactive protein C-REACTIVE PROTEIN ([id number]) Start: 24-Sep-2024 10:41-04:00 Request [facility] [employer] [facility] [employer].; [facility], [facility] Social. Start: 09-24-2024 Sedimentation rate r bc automated RBC SEDIMENTATION RATE, AUTOMATED (05904) Start: 24-Sep-2024 10:40-04:00 Request [facility] [employer] [facility] [employer].; [facility] Social. Start: 09-24-2024 Assay of thyroid stimulating hormone tsh TSH (THYROID STIMULATING HORMONE) ([id number]) Start: 24-Sep-2024 10:40-04:00 Request [employer] [facility] [employer].; [employer] [facility] Inside Social. Start: 09-24-2024 Hemoglobin glycosylated a1c HEMOGLOBIN GLYCLATED (HGB A1C) ([id number]) Start: 24-Sep-2024 10:40-04:00 Request [employer] [facility] [employer].; [employer] [facility] Inside Social. Start: 09-24-2024 Antibody borrelia burgdorferi lyme disease Lyme Antibody ([facility] reflex to W[employer]ot [id number]) ([id number]) Start: 24-Sep-2024 10:40-04:00 Request [facility] [employer] [facility] [employer].; [employer] [facility], Inc[facility] Start: 09-21-2024 [facility] Start: 09-20-2024 [facility] Start: 05-25-2021 Lipid panel LIPID PANEL ([id number]) Start: 25-May-2021 08:28-05:00 Request [employer] Work Phone: Start: 11-02-2020 Radex ankle complete minimum 3 views X-RAY ANKLE, 3 VIEWS ([id number]) Start: 02-Nov-2020 Intent Comments: Right - still painful 3 weeks after negative x-rays [facility] [employer] [facility] [employer].; [employer] [facility] [employer] Comment on above: Right - still painfu l 3 weeks after negative x-rays Start: 10-14-2020 [employer] ankle complete minimum 3 views X-RAY ANKLE, 3 VIEWS ([id number]) Start: 14-Oct-2020 Intent Comments: right lateral malleolus [facility].; [facility] [employer] Comment on above: right lateral malleo carmen Start: 03-19-2018 Patient Education ANEMIA Indic ation: Anemia, unspecified type Start: 19-Mar-2018 Instruction Type: Patient Education [employer] [facility] [employer] Start: 11-25-2016 Patient Education SYNCOPE Lois cation: Syncope, unspecified syncope type Start: 25-Nov-2016 Instruction Type: Patient Education [facility] [employer] [facility] [employer] Start: 08-29-2016 End: 08-29-2016 Appointment Appointment [facility] Work Phone: Start: 08-29-2016 End: 08-29-2016 X-ray exam of wrist X-Ray, Wrist [facility] Work Phone: Start: 08-28-2016 End: 08-28-2016 Appointment Appointment [facility] Work Phone: Start: 08-15-2016 End: 08-15-2016 Appointment Appointment [facility] Work Phone: Start: 08-15-2016 End: 08-15-2016 X-ray exam of wrist X-Ray, Wrist [facility] Work Phone: Start: 07-29-2016 End: 07-29-2016 X-ray exam of wrist X-Ray, Wrist [facility] Work Phone: Start: 07-15-2016 End: 07-15-2016 X-ray exam of wrist X-Ray, Wrist [facility] Work Phone: Start: 04-13-2015 Patient Education GERD Indicat ion: Gastroesophageal reflux disease, esophagitis presence not specified Start: 13-Apr-2015 Instruction Type: [facility] Education [facility] [employer]. Start: 05-13-2013 Patient Education FATIGUE Lois cation: Fatigue Start: 13-May-2013 Instruction Type: Patient Education [facility]. Cobalamin (Vitamin B12) [Mass/volume] in Serum or Plasma [facility] Ferritin [Mass/volum e] in Serum or Plasma [facility] Hematocrit [Volume Fraction] of Blood [facility] Iron [Mass/mass] in Unspecified specimen [facility] Iron saturation [Mas s Fraction] in Serum or Plasma [facility] Patient Education [facility] Work Phone: Patient referral [facility] Work Phone: Total iron binding capacity measurement [facility] Troponin T.cardiac [Mass/volume] in Serum or Plasma by High sensitivity method [facility] Troponin T.cardiac [Mass/volume] in Serum or Plasma by High sensitivity method [facility] Troponin T.cardiac [Mass/volume] in Serum or Plasma by High sensitivity method [facility] Immunizations Immunization Date Immunization Notes Care Provider Fa cility influenza virus vaccine, unspecified formulation Iman WISE MD Work Phone: [facility]; [facility] Comment on above: Refused. 01/29/2021, 01/12/2022, 02/04/2023 Payers Date Payer Category Payer Self-pay [id number] 2024 Unknown Unknown [id number] Unknown [id number] Unknown [id number] Social History Date Type Detail Facility Start: 09-20-2024 End: 09-27-2024 Tobacco smoking status NHIS Never smoked tobacco (finding) [facility] Start: 1950 Sex Assigned At Female [facility] Alcohol Use: Alcohol Use: ; N o Alcohol Use. [facility] Current Work/Study Status Current Work/Study Status [facility]; [facility] Marital status: Marital status: ; Single. [facility]; [facility] Tobacco use: Tobacco use: ; N ever smoker. [facility]; [facility] Mental Status Date Assessment Result Facility 09-27-2024 Cognitive function Level Of Cons ciousness Awake;Alert;Appropriate;Follow s Commands [facility] Work Phone: 09-20-2024 Cognitive function Level Of Cons ciousness Awake;Alert;Appropriate;Follow s Commands [facility] Work Phone: Discharge summary 09-27-2024 Note Date & Type Note Facility 09-27-2024 Discharge summary [facility] Discharge summary 09-27-2024 Note Date & Type Note Facility 09-27-2024 Discharge summary Note Date/Time September 27, 2024 2:53pm [facility] Medical Records Department [address] [place] [address] Emergency Department Summary 09/27/24 MR#: [id number] Acct: [id number] Name: IFEANYI SUAREZ Rep #:[id number] : 1950 73 From: Denny Rosario PCP: Dr. Stefan Wise MD Status:RE G ER Location: ED HPI History of Present Illness Chief Complaint: Fatigue PFSH PFSH Medical History Depression Kidney stones Non-smoker Home Medications ?Medication ?Instructions ?Recorded ?Last Taken ?Type ascorbate calcium (vitamin C) 500 500 mg PO QDAY 09/2709/27/24 History mg tablet aspirin 81 mg tablet,delayed 81 mg PO DAILY 09/27/24 0 09/26/24 History release (Adult Aspirin Regimen) doxycycline hyclate 100 mg capsule 100 mg PO BID 09/2709/27/24 History multivitamin (Daily Multi-Vitamin 1 tab PO DAILY 09/2709/27/24 History tablet) ondansetron 4 mg disintegrating 4 mg PO Q8H PRN PRN na usea 09/27/24 Unknown Hi story tablet selenium 200 mcg capsule 200 mcg PO DAILY 09/27/24 History zinc acetate 25 mg (zinc) capsule 25 mg PO QDAY 09/27/24 History (Galzin) Allergy/AdvReac Type Severity Reaction Status Date / Time No Known Allergies Allergy Verified 09/27/24 13:08 Social History Smoking Status: Never smoker EXAM Physical Exam Const Vital Signs: 09/27/24 13:08 09/27/24 13:13 09/27/24 13:13 Temperature 98.3 F 98.3 F Temperature Source Oral Oral Pulse Rate 85 85 Respiratory Rate 20 H 20 H Respiratory Effort Normal Respiratory Pattern Normal Blood Pressure 117/75 117/75 Blood Pressure Mean 89 89 Pulse Ox 98 98 Oxygen Delivery Method Room Air Room Air MDM MDM MDM Narrative Medical decision making narrative: HISTORY OF PRESENT ILLNESS: Chief complaint: Diffuse weakness, fatigue 73-year-old female presents with diffuse weakness. Sent by PCP. Notes recent diagnosis of Lyme disease. PCP wants admitted for Lyme disease and poor outpatient improvement in symptoms. m patient notes diffuse weakness. Difficulty with ambulation and concern for risk of falling. She is, by her who states patient not safe at home. States he is not getting better and states PCP thought could be beneficial for you IV antibiotics and to be admitted REVIEW OF SYSTEMS: Pertinent positives: Diffuse weakness Pertinent negatives: Headache, chest pain, shortness breath, cough, fever, urinary complaint PHYSICAL EXAM: Nursing triage notes reviewed, Vital signs reviewed Constitutional: please see [facility] HENT: MMM Eyes: Pupils equal round and reactive to light, Extraocular muscles intact Neck: No stridor, no JVD, full neck ROM Lungs: Clear to auscultation, No wheezing or rales. No increased work of breathing, no conversational dyspnea, no accessory muscle use, no nasal flaring. No respiratory distress noted Heart: Regular rate and rhythm, No murmurs, No rubs and No gallops, 2+ distal pulses (radial, femoral, posterior tibial) in all extremities Abdomen: Soft, there is no tenderness, rigidity, rebound or guarding, no obviousperitoneal signs, no palpable pulsatile abdominal masses, no auscultated abdominal bruit : No CVAT Extremities: No edema Neuro: My neuroexam Skin: No rash or lesions noted MEDICAL DECISION MAKING: Chief Complaint: please see HPI External records reviewed: Reviewed ED visit from 09/20/2024. At this visit she received a CT scan of pelvis, CT head of the brain, chest x-ray was also negative. CBC with no cytosis, no anemia, no thrombocytopenia. BMP without evidence of significant electrolyte abnormalities, no anion gap, no acute kidney injury. LFTs show no evidence of hepatobiliary pathology. High-sensitivity troponin is negative, no evidence of myocardial ischemia x 3. Lipase is wnl indicating no pancreatic inflammation. Urinalysis shows no evidence of urinary inflammation suggestive of UTI Reviewed PCP visit from today. Dr. Wise recommended patient be admitted forIV therapy. Factors affecting care: none Social determinants of health: none History obtained from others: Consults: internal medicine (Dr. Russell) who agreed to admit the patient [facility] Narrative: The patient was initially hemodynamically stable, afebrile and nontoxic-appearing. No focal neurologic deficits. No focal cardiopulmonary abnormalities. Abdomen soft and nontender. Patient appears fatigued but not toxic. I considered the following differential diagnosis: CVA, electrolyte disturbance, anemia, dehydration, ACS, disseminated Lyme The patient's history and physical exam not consistent with acute CVA she has nonfocal neuroexam. NIH of 0. No indication for advanced imaging the brain at this time. I obtained a lab workup to further determine if the patient was suffering from alife-threatening etiology. ALL IMAGES (IF OBTAINED) HAVE BEEN PERSONALLY REVIEWED AND INTERPRETED BY MYSELF. EKG normal sinus rhythm rate of 72, normal axis, normal intervals, no STEMI High-sensitivity troponin is negative, no evidence of myocardial ischemia CBC without leukocytosis, severe anemia, no thrombocytopenia. BMP without evidence of significant electrolyte abnormalities, no anion gap, no acute kidney injury. The synthesis of the patient's history, physical exam, labs images suggest no acute life-threatening etiology. I have a low suspicion for disseminated Lyme at this time as patient has no focal neurologic deficits. EKG has normal intervals. Gave empiric ceftriaxone given patient's gait abnormality and need for hospitalization for PT OT possible placement. The patient and/or family, caregivers express understanding. The patient and/orfamily, caregivers agrees with the plan. Shared decision making: I will have a discussion with the patient and or visitors regarding risk/benefits of further testing or admission. They will be made aware of of the risk/benefits inherent in this decision they will be given the opportunity to voice understanding. Total critical care time today provided was at least 0 minutes. This excludes separately billable procedures. Critical care time (if documented) is secondary to the patient having high probability of clinically significant/life threatening deterioration in the patient's condition which required my urgent intervention. Impression: 1. Fatigue 2. Gait abdomen 3. Lyme disease Dispo: Admit to hospital This note was generated with [employer] dictation software. It may contain incorrectwords, spelling, and punctuation that were not noted in review of the chart prior to signing. Lab Data Labs: Laboratory Results - last 24 hr 09/27/24 13:30 WBC 7.9 RBC 4.43 Hgb 12.4 Hct 38.9 MCV 87.8 MCH 28.0 MCHC 31.9 L RDW Std Deviation 44.7 H RDW Coeff of Tasha 13.9 Plt Count 518 H MPV 8.8 Immature Gran % (Auto) 2.800 H Neut % (Auto) 62.3 Lymph % (Auto) 21.6 Luna % (Auto) 9.0 Eos % (Auto) 3.2 Baso % (Auto) 1.1 H Absolute Neuts (auto) 4.9 Absolute Lymphs (auto) 1.71 Nucleated RBC % 0 Sodium 139 Potassium 4.4 Chloride 101 Carbon Dioxide 25.9 Anion Gap 12 BUN 15 Creatinine 0.62 L Est GFR (MDRD) Non-Af 95 BUN/Creatinine Ratio 24.8 H Glucose 121 H Calcium 9.7 Troponin T High Sens 10 D Discharge Plan Triage Chief Complaint: Fatigue ED Provider: Denny Liang Dx/Rx/DC Orders Prescriptions: No Action doxycycline hyclate 100 mg capsule 100 mg PO BID ondansetron 4 mg tablet,disintegrating 4 mg PO Q8H PRN PRN (Reason: nausea) ascorbate calcium (vitamin C) 500 mg tablet 500 mg PO QDAY Galzin 25 mg (zinc) capsule 25 mg PO QDAY selenium 200 mcg capsule 200 mcg PO DAILY multivitamin [Daily Multi-Vitamin] Tablet 1 tab PO DAILY aspirin [Adult Aspirin Regimen] 81 mg tablet,delayed release (DR/EC) 81 mg PO DAILY Primary Care Provider: Stefan Wise Referrals: Stefan Wise MD [Primary Care Provider] - Print Language: Italian What to do if you have Problems For any increased pain, shortness of breath, bleeding, nausea or vomiting, chestpain, or any unexpected problems, contact your Primary Care Provider. Call [facility] ([phone]) or report to the closest Emergency Room. Call 911 if necessary. 09/27/24 [id number] <Electronically signed by Denny Liang DO> Cosigner Signature (if applicable): CC: Dr. Stefan Wise MD ~ Signed [facility] Work Phone: Discharge summary 09-21-2024 Note Date & Type Note Facility 09-21-2024 Discharge summary [facility] Radiology Diagnostic study note 09-20-2024 Note Date & Type Note Facility 09-20-2024 Radiology Diagnostic study note [facility] Imaging Services [address], [place] [address] Abdomen/Pelvis without Cont MR#: [id number] Acct: [id number] Name: IFEANYI SUAREZ Rep #: [id number] : 1950 F 73 From: Yolanda Moore MD PCP: SALONI Gibbs Status: REG ER Study:Abdomen/Pelvis without Cont Date of Exa m: 09/20/24 Exam# [id number] Ordering Dr: Yuliya Boogie MD PROCEDURE: ABDOMEN/PELVIS WITHOUT CONT 09/20/2024 REASON FOR EXAM: LEFT FLANK PAIN TECHNIQUE: ABDOMEN/PELVIS WITHOUT CONT Noncontrast technique limits evaluation of the abdominal and pelvic viscera. Coronal and Sagittal reconstruction series were provided. One or more dose reduction techniques were used (e.g., Automated exposure control, adjustment of the mA and/or kV according to patient size, use of iterative reconstruction technique). CTDIvol: 17.0 mGy DLP: 690 mGy-cm COMPARISON: None FINDINGS: Lung bases: Aortic valvular calcification. Bibasilar atelectasis. Liver: Unremarkable Gallbladder: Unremarkable for degree of distention Spleen: Unremarkable Pancreas: Unremarkable Adrenals: Unremarkable Kidneys: No hydronephrosis. There are punctate nonobstructing stones in the right kidney measuring up to 2 mm in size. Ureters: Poorly visualized, without stone identified. Bladder: Unremarkable Reproductive Organs: Unremarkable Bowel: No evidence of obstruction or inflammation on this limited noncontrast evaluation. Visualized portions of the appendix are unremarkable. Lymph nodes: No suspicious lymph node enlargement. Vasculature: Mild diffuse atherosclerotic calcifications are noted. Bones: Degenerative changes of the spine. Grade 1 anterolisthesis of L3 on L4. Soft tissues: There is a lipoma in the proximal right thigh, within or adjacent to the quadriceps musculature. CT/Abdomen/Pelvis without Cont IMPRESSION: Punctate nonobstructing stones in the right kidney measuring up to 2 mm. Otherwise there is no evidence of an acute intra-abdominal abnormality on this limited noncontrast exam. Reading Location: [facility] CC: SALONI Gibbs; Dr. Bryant Boogie MD ~ Aviation Medicine Specialist: Signed [facility] Radiology Diagnostic study note 09-20-2024 Note Date & Type Note Facility 09-20-2024 Radiology Diagnostic study note [facility] Imaging Services [address] [place] [address] Chest PA and Lateral MR#: [id number] Acct: [id number] Name: IFEANYI SUAREZ Rep #: [id number] : 1950 F 73 From: Yolanda Moore MD PCP: SALONI Gibbs Status: REG ER Study:Chest PA and Lateral Date of Exam: 09/20/24 Exam# [id number] Ordering Dr: Yuliya Boogie MD PROCEDURE: CHEST PA AND LATERAL 09/20/2024 REASON FOR EXAM: WEAKNESS TECHNIQUE: CHEST PA AND LATERAL COMPARISON: None FINDINGS: Hardware: None Heart: The heart size is normal. Mediastinum: The mediastinal contour is unremarkable. Aortic atherosclerosis. Lungs: No focal consolidation or pleural effusion. Bones: Degenerative changes are identified within the thoracic spine. RAD/Chest PA and Lateral IMPRESSION: No acute cardiopulmonary abnormality. Reading Location: [id number] CC: SALONI Gibbs; Dr. Bryant Boogie MD ~ Aviation Medicine Specialist: Signed [facility] Radiology Diagnostic study note 09-20-2024 Note Date & Type Note Facility 09-20-2024 Radiology Diagnostic study note [facility] Imaging Services [address] [place] [id number] Brain/Head without Contrast MR#: [id number] Acct: [id number] Name: IFEANYI SUAREZ Rep #: [id number] : 1950 F 73 From: Yolanda Moore MD PCP: SALONI Gibbs Status: REG ER Study:Brain/Head without Contrast Date of Exa m: 09/20/24 Exam# [id number] Ordering Dr: Yuliya Boogie MD PROCEDURE: BRAIN/HEAD WITHOUT CONTRAST 09/20/2024 REASON FOR EXAM: ATAXIA TECHNIQUE: BRAIN/HEAD WITHOUT CONTRAST Coronal and Sagittal reconstruction series were provided. One or more dose reduction techniques were used (e.g., Automated exposure control, adjustment of the mA and/or kV according to patient size, use of iterative reconstruction technique. RADIATION DOSE SUMMARY: CTDlvol: 45.0 mGy DLP: 830 mGycm COMPARISON: None FINDINGS: Brain: No acute intracranial hemorrhage, mass effect, or midline shift. Low density in the periventricular white matter suggests mild chronic small vessel ischemic changes. Basal ganglia calcifications. CSF Spaces: Mild generalized cerebral atrophy Sinuses/Mastoids: Opacification with central calcifications in the left maxillary sinus. No mastoid effusion. Bones: Unremarkable CT/Brain/Head without Contrast IMPRESSION: 1. No acute intracranial abnormality. 2. Left maxillary sinus disease with central calcifications, as could be seen with fungal etiology. Reading Location: [facility] CC: SALONI Gibbs; Dr. Bryant Boogie MD ~ Aviation Medicine Specialist: Signed [facility] Discharge summary 09-20-2024 Note Date & Type Note Facility 09-20-2024 Discharge summary Note Date/Time September 21, 2024 2:19am [facility] Medical Records Department [address] [place] [address] Emergency Department Summary 09/20/24 MR#: [id number] Acct: [id number] Name: IFEANYI SUAREZ Rep #:[id number] : 1950 73 From: Bryant Boogie MD PCP: SALONI Gibbs Status:REG ER Location: ED HPI History of Present Illness Chief Complaint: General Illness Informant: patient and family Narrative Narrative: 73-year-old female states she has been feeling poorly and weak for the past 2-3 days although it has varied. It started 2 days ago, she states she was outside in the heat stacking wood and started feeling poorly and so she thought she was overheated. They have not had any air conditioning until last night they finally bought a window unit to put in their house, temperatures were in the mid90s last day or 2. She said yesterday she felt pretty good, she drank fluid, she had some decreased urination each time she went in volume, but still urinating throughout the day every day, and not dark. She has had no chest or abdominal pain until the last hour or 2 while waiting here in the ER she developed some left-sided abdominal discomfort that is relatively mild. She vomited once prior to coming here, did not have any abdominal pain when that occurred, but states that off-and-on she has been feeling off balance when she walks. No headache, no vision changes or visual field cuts or diplopia, or eye pain. She states this is just been in the past 2 or 3 days. She was walking fine earlier today and tonight when she is feeling bad, she is off balance again. She denies feeling any dizziness in her head. No earache or hearing changes. No neck pain, back pain, numbness or weakness in an arm or leg. She states she has not had a lot of fluids today, maybe a quart of water. PFS PFS Medical History no medical history no medical history Home Medications ?Medication ?Instructions ?Recorded ?Last Taken ?Type ondansetron 8 mg disintegrating 8 mg PO Q8H PRN nausea and 09/21/24 Unknown Rx tablet vomiting #12 tabs Allergy/AdvReac Type Severity Reaction Status Date / Time No Known Allergies Allergy Verified 09/20/24 20:32 Surgical History no surgical history Social History Smoking Status: Never smoker ROS ROS ED Constitutional Constitutional ED: Reports fatigue and weakness; Denies chills, fever(s) or sweats Eyes Eyes: Denies blurry vision, change in vision or diplopia ENT ENT ED: Reports disequillibrium; Denies abnormal hearing, dizziness, ear pain, facial pain, hearing loss, rhinorrhea, sore throat or tinnitus Cardiovascular Cardiovascular: Denies chest pain, palpitations or racing heartbeat Respiratory/Chest Respiratory/Chest: Denies cough or dyspnea Gastrointestinal Gastrointestinal: Reports abdominal pain, nausea and vomiting; Denies diarrhea Genitourinary Genitourinary ED: Denies dysuria or hematuria Musculoskeletal Musculoskeletal: Denies back pain or neck pain Integumentary Denies abscess or rash Neurologic Neurologic: Reports as per HPI and abnormal gait; Denies headache(s), paresthesias or weakness Psychiatric Psychiatric: Denies anxiety or suicidal thoughts EXAM Physical Exam Const Vital Signs: 09/20/24 20:31 09/20/24 21:00 09/20/24 22:31 Temperature 98.7 F Temperature Source Oral Pulse Rate 68 70 Pulse Rate [Lying] Pulse Rate [Sitting (for 1 minute prior to obtaining)] Pulse Rate [Standing (for 1 minute prior to obtaining)] Respiratory Rate 14 20 H Respiratory Effort Normal Non-Labored Respiratory Pattern Normal Blood Pressure 134/83 H 123/80 H Blood Pressure [Lying] Blood Pressure [Sitting (for 1 minute prior to obtaining)] Blood Pressure [Standing (for 1 minute prior to obtaining)] Blood Pressure Mean 100 94 Blood Pressure Mean [Lying] Blood Pressure Mean [Sitting (for 1 minute prior to obtaining)] Blood Pressure Mean [Standing (for 1 minute prior to obtaining)] Pulse Ox 98 97 Oxygen Delivery Method 09/20/24 22:35 09/21/24 00:17 09/21/24 00:19 Temperature Temperature Source Pulse Rate 60 59 L Pulse Rate [Lying] 60 Pulse Rate [Sitting (for 1 minute prior to obtaining)] 67 Pulse Rate [Standing (for 1 minute prior to obtaining)] 71 Respiratory Rate 18 22 H Respiratory Effort Respiratory Pattern Blood Pressure 112/72 120/75 Blood Pressure [Lying] 118/73 Blood Pressure [Sitting (for 1 minute prior to obtaining)] 127/77 H Blood Pressure [Standing (for 1 minute prior to obtaining)] 113/74 Blood Pressure Mean 85 90 Blood Pressure Mean [Lying] 88 Blood Pressure Mean [Sitting (for 1 minute prior to obtaining)] 93 Blood Pressure Mean [Standing (for 1 minute prior to obtaining)] 87 Pulse Ox 99 100 Oxygen Delivery Method Room Air Room Air 09/21/24 01:23 Temperature Temperature Source Pulse Rate 64 Pulse Rate [Lying] Pulse Rate [Sitting (for 1 minute prior to obtaining)] Pulse Rate [Standing (for 1 minute prior to obtaining)] Respiratory Rate 18 Respiratory Effort Respiratory Pattern Blood Pressure 115/76 Blood Pressure [Lying] Blood Pressure [Sitting (for 1 minute prior to obtaining)] Blood Pressure [Standing (for 1 minute prior to obtaining)] Blood Pressure Mean 89 Blood Pressure Mean [Lying] Blood Pressure Mean [Sitting (for 1 minute prior to obtaining)] Blood Pressure Mean [Standing (for 1 minute prior to obtaining)] Pulse Ox 98 Oxygen Delivery Method Room Air Positive well nourished and well developed General Appearance ED: well developed and NAD HEENT Reports moist mucous membranes normocephalic and atraumatic Eyes PERRL and EOMs intact bilaterally Eyes Narrative: Normal visual field exam Neck full ROM and supple Chest Wall inspection of chest normal and palpation of chest normal Resp normal respiratory effort and clear to auscultation bilaterally Cardio regular rate, regular rhythm and no murmurs Rate: Negative for tachycardic GI non-tender and non-distended GI Narrative: Mild left sided abdominal pain not reproducible and without any tenderness or pulsatile mass. Auscultation: normoactive bowel sounds Palpation: soft Back/Spine no CVA tenderness General Back: other FROM Extremity normal to inspection Extremity Narrative: Intact distal pulses x 4 General Extremety ED: Negative for edema, pulses abnormal or tenderness General Extremity: Negative for edema or pulses abnormal Neuro oriented x3, CN's II-XII intact bilaterally and no sensory deficits noted Neuro Narrative: Patient is mildly ataxic with walking. She can make it across and down the hallwithout any significant assistance, catches herself. She does not have a shuffling gait. She has normal central and peripheral neurologic exams, and normal speech. She is somewhat ataxic with regards to the right lower extremity, gaining her 1 on the NIHSS, but she otherwise score is 0. Sensorium / Orientation: awake and alert Motor Exam: strength 5/5 throughout Psych mental status grossly normal Skin no rashes or lesions noted and no wounds MDM MDM MDM Narrative Medical decision making narrative: Patient has some fairly nonspecific generalized symptoms as well as ataxia whichis unusual. For these latter reasons I obtained a CT of the head/brain, I reviewed the images and the report which I agree with, it shows no acute RISK AND INSURANCE CONSULTANT abnormality but it does show some maxillary sinus abnormalities that may indicate a fungal sinusitis. There are calcifications, and this appears chronic. I suggest likely incidental, and should not be causing her ataxia. She does not have symptoms of an acute bacterial sinusitis. With regards to herlabs they are all normal, white blood count is 6, 2 sequential troponin measurements are normal along with an EKG that is normal except for first-degreeAV block, liver enzymes and lipase are unremarkable except for a slightly abnormal AST at 36 which is very nonspecific. Urinalysis shows some proteinuriabut is otherwise unremarkable negative for infection. Two-view chest x-ray negative for pneumonia on my interpretation of radiology was in agreement. Alsosent her for a CT of the abdomen/pelvis, which shows no acute ureterolithiasis or reason for renal/ureteral colic. There are a couple of nonobstructing right kidney stones that are not causing symptoms right now and the CT is negative forany other acute abnormality also. In the meantime she was given IV fluids and some Zofran. On reexamination she is feeling much better and states that her balance felt back to normal. At this time they tell me that the patient had a temperature over 102 last night. She is afebrile here and her vital signs are normal. Differential includes heat illness as well as viral gastritis. For now I think supportive care and staying cool and hydrated is the best plan but I think she can be discharged home to follow-up as an outpatient, I do not think she is having heatstroke as she is alert and oriented x 3. Lab Data Attestation: I reviewed the patient's lab results. Labs: Laboratory Results - last 24 hr 09/20/24 09/20/24 09/21/24 21:10 23:10 00:09 WBC 6.0 RBC 4.10 L Hgb 11.5 L Hct 36.0 L MCV 87.8 MCH 28.0 MCHC 31.9 L RDW Std Deviation 46.2 H RDW Coeff of Tasha 14.3 Plt Count 266 MPV 10.1 Immature Gran % (Auto) 0.300 Neut % (Auto) 77.0 H Lymph % (Auto) 8.2 L Luna % (Auto) 13.8 H Eos % (Auto) 0.2 Baso % (Auto) 0.5 Absolute Neuts (auto) 4.6 Absolute Lymphs (auto) 0.49 L Nucleated RBC % 0 Sodium 133 Potassium 4.2 Chloride 98 Carbon Dioxide 23.8 Anion Gap 12 BUN 13 Creatinine 0.72 Estim Creat Clear Calc 52.58 Est GFR (MDRD) Non-Af 89 BUN/Creatinine Ratio 18.2 Glucose 164 H Calcium 9.0 Total Bilirubin 0.29 AST 36 H ALT 23 Alkaline Phosphatase 81 Troponin T High Sens < 6 Troponin T Hi Sens 2 Hr 6 Total Protein 7.3 Albumin 3.7 Globulin 3.6 Albumin/Globulin Ratio 1.0 Lipase 34 Urine Color Yellow Urine Clarity Clear Urine pH 6.0 Ur Specific [place] 1.020 Urine Protein 30 H Urine Glucose (UA) Normal Urine Ketones Negative Urine Occult Blood Negative Urine Nitrite Negative Urine Bilirubin Negative Urine Urobilinogen Normal Ur Leukocyte Esterase Negative Urine RBC 0 SEEN Urine WBC 0 SEEN Ur Squamous Epith Cells 0 SEEN Urine Bacteria 1+ Urine Mucus 0 SEEN Radiography Diagnostic Testing: Clinical Impression(s) from Imaging Studies Abdomen/Pelvis CT 09/20/24 22:34 IMPRESSION: Punctate nonobstructing stones in the right kidney measuring up to 2 mm. Otherwise there is no evidence of an acute intra-abdominal abnormality on this limited noncontrast exam. Reading Location: [facility] Brain CT 09/20/24 22:34 IMPRESSION: 1. No acute intracranial abnormality. 2. Left maxillary sinus disease with central calcifications, as could be seen with fungal etiology. Reading Location: [id number] Chest X-Ray 09/20/24 23:15 IMPRESSION: No acute cardiopulmonary abnormality. Reading Location: [id number] Rhythm Strip Rhythm Strip: Sinus Rhythm Rate: 65 Ectopy: None EKG Initial EKG: Attestation: I personally reviewed and interpreted this EKG as follows: Interpretation: Sinus Rhythm and No Acute Injury Pattern Comments: Nml axis & intervals except for first-degree AV block; nml EKG Discharge Plan Triage Chief Complaint: General Illness ED Provider: Bryant Boogie Dx/Rx/DC Orders Clinical Impression: Generalized weakness, Nausea and vomiting, Fever, Intermittent ataxia, Chronic left maxillary sinusitis, Right nephrolithiasis, Left sided abdominal pain of unknown cause Instructions: ED Gastritis (Adult), ED Heat Exhaustion Prescriptions: New ondansetron 8 mg tablet,disintegrating 8 mg PO Q8H PRN (Reason: nausea and vomiting) Qty: 12 0RF Primary Care Provider: Johnson Jauregui Referrals: Zachary Estrada MD [Non-Staff] - As soon as possible Activity Restrictions/Additional Instructions: CT of your abdomen was normal except for some small incidental stones in her right kidney. CT of your brain/head was unremarkable except for what looks likechronic appearing sinusitis of the left maxillary sinus, with some calcifications that could be fungal but more testing would be needed to see if that is the case and if it needs to be treated with anything. Follow-up with your doctor. It is possible that your recent symptoms have been related to the stomach flu which is usually viral and will go away on its own, or heat illness. At this time the treatment for both would be the prescription for nausea as needed alongwith staying cool and drinking plenty of fluids. Print Language: Italian Disposition Disposition: Home, Self Care What to do if you have Problems For any increased pain, shortness of breath, bleeding, nausea or vomiting, chestpain, or any unexpected problems, contact your Primary Care Provider. Call [facility] ([phone]) or report to the closest Emergency Room. Call 911 if necessary. 09/21/24 0219 <Electronically signed by Bryant Boogie MD> Cosigner Signature (if applicable): CC: SALONI Gibbs; Dr. Zachary Estrada MD ~ Signed [facility] Work Phone: Evaluation note Note Date & Type Note Facility Evaluation note No assessment information availa ble [facility] Work Phone: Hospital Discharge instructions Note Date & Type Note Facility Hospital Discharge instructions Additional Instructions CT of your abdomen was normal except for some small incidental stones in her right kidney. CT of your brain/head was unremarkable except for what looks like chronic appearing sinusitis of the left maxillary sinus, with some calcifications that could be fungal but more testing would be needed to see if that is the case and if it needs to be treated with anything. Follow-up with your doctor. It is possible that your recent symptoms have been related to the stomach flu which is usually viral and will go away on its own, or heat illness. At this time the treatment for both would be the prescription for nausea as needed along with staying cool and drinking plenty of fluids. [facility] Work Phone: Reason for referral (narrative) Note Date & Type Note Facility Reason for referral (narrative) No reason for referral information available [facility] Work Phone: Chief Complaint and Reason for Visit Chief Complaint Admit Date overheated September 20, 2024 8:31 pm Chief Complaint Admit Date overheated September 20, 2024 8:31 pm WEAKNESS W/ RECENT LYME DX September 27 2:45pm Advance Directives Advance Directive Response Recorded Date/ Time Do you have a Healthcare Power of Retail Wireless Sales Representative? No September 20, 2024 8:31pm Advance Directive Response Recorded Date/ Time Do you have a Healthcare Power of Retail Wireless Sales Representative? No September 27, 2024 2:27pm Do you have a Healthcare Power of Retail Wireless Sales Representative? No September 20, 2024 8:31pm Family History Brother (s) Status:Active Comments:6. 1 Ch olesterol. Father Status:Active Comments: d. 85. CHF. Mother Status:Active Comments: d. 82. HTN. Sister (s) Status:Active Comments:4. 2 de ceased, infancy. Brother (s) Status:Active Comments:6. 1 Ch olesterol. Father Status:Active Comments: d. 85. CHF. Mother Status:Active Comments: d. 82. HTN. Sister (s) Status:Active Comments:4. 2 de ceased, infancy. Brother (s) Status:Active Comments:6. 1 Ch olesterol. Father Status:Active Comments: d. 85. CHF. Mother Status:Active Comments: d. 82. HTN. Sister (s) Status:Active Comments:4. 2 de ceased, infancy. Brother (s) Status:Active Comments:6. 1 Ch olesterol. Father Status:Active Comments: d. 85. CHF. Mother Status:Active Comments: d. 82. HTN. Sister (s) Status:Active Comments:4. 2 de ceased, infancy. Brother (s) Status:Active Comments:6. 1 Ch olesterol. Father Status:Active Comments: d. 85. CHF. Mother Status:Active Comments: d. 82. HTN. Sister (s) Status:Active Comments:4. 2 de ceased, infancy. Brother (s) Status:Active Comments:6. 1 Ch olesterol. Father Status:Active Comments: d. 85. CHF. Mother Status:Active Comments: d. 82. HTN. Sister (s) Status:Active Comments:4. 2 de ceased, infancy. Brother (s) Status:Active Comments:6. 1 Ch olesterol. Father Status:Active Comments: d. 85. CHF. Mother Status:Active Comments: d. 82. HTN. Sister (s) Status:Active Comments:4. 2 de ceased, infancy. Brother (s) Status:Active Comments:6. 1 Ch olesterol. Father Status:Active Comments: d. 85. CHF. Mother Status:Active Comments: d. 82. HTN. Sister (s) Status:Active Comments:4. 2 de ceased, infancy. Brother (s) Status:Active Comments:6. 1 Ch olesterol. Father Status:Active Comments: d. 85. CHF. Mother Status:Active Comments: d. 82. HTN. Sister (s) Status:Active Comments:4. 2 de ceased, infancy. Brother (s) Status:Active Comments:6. 1 Ch olesterol. Father Status:Active Comments: d. 85. CHF. Mother Status:Active Comments: d. 82. HTN. Sister (s) Status:Active Comments:4. 2 de ceased, infancy. Brother (s) Status:Active Comments:6. 1 Ch olesterol. Father Status:Active Comments: d. 85. CHF. Mother Status:Active Comments: d. 82. HTN. Sister (s) Status:Active Comments:4. 2 de ceased, infancy. Summary Purpose Additional Source Comments Care Teams (unrecognized sec tion and content) Team Status: Active Member Role Status Dates SALONI Hernandez Primary Care Provider Active Team Status: Inactive Member Role Status Dates SALONI Hernandez Primary Care Provider Active Start: September 20, 2024 End: September 21, 2024 Dr. Bryant Boogie MD Emergency Provider Active Start: September 20, 2024 End: September 21, 2024 Team Status: Active Member Role/Relationship Status Dates Dr. Stefan Wise MD Primary Care Provider Active Team Status: Inactive Member Role/Relationship Status Dates SALONI Hernandez Primary Care Provider Active Start: September 20, 2024 End: September 21, 2024 Dr. Bryant Boogie MD Attending Provider Active Start: September 20, 2024 End: September 21, 2024 Dr. Bryant Boogie MD Emergency Provider Active Start: September 20, 2024 End: September 21, 2024 Team Status: Active Member Role/Relationship Status Dates Dr. Stefan Wise MD Primary Care Provider Active Start: September 27, 2024 Dr. Denny Liang DO Emergency Provider Active Start: September 27, 2024 Dr. Azam Russell DO Admit Provider Active Start: September 27, 2024 Dr. Azam Russell DO Attending Provider Active Start: September 27, 2024 Goals (unrecognized section and content) Goals may be documented in a n alternate sectionGoals may be documented in an alternate section INFORMATION SOURCE (unrecogn ized section and content) DATE CREATED AUTHOR 09/25/2024 [facility] DATE CREATED AUTHOR AUTHOR'S ORGANIZ ATION 09/26/2024 [facility] FOR RECORDS PERTAINING TO PATIENTS WHO ARE OR HAVE BEEN ENROLLED IN A CHEMICAL DEPENDENCY/SUBSTANCEABUSE PROGRAM, SOME INFORMATION MAY BE OMITTED. This clinical summary was aggregated from multiple sources. Caution should be exercised in using it in the provision of clinical care. This summary normalizes information from multiple sources, and as a consequence, information in this document may materially change the coding, format and clinical context of patient data. In addition, data may be omitted in some cases. CLINICAL DECISIONS SHOULD BE BASED ON THE PRIMARY CLINICAL RECORDS. [facility] [employer] [facility]. provides no warranty or guarantee of the accuracy or completeness of information in this document.
[2024-09-28 04:11] VITALS: BP 119/83; PULSE 74; RESP 18; TEMP 37; O2SAT 98
[2024-09-28 06:50] LABS: Hematocrit 34.9 % (37-47); Hemoglobin 11.2 g/dL (12.0-15.0); Mean Corp Hgb Conc 32.1 g/dL (32-36); Mean Corpuscular Volume 87.7 fL (81-99); Mean Platelet Vol. 9.0 fl (6.2-12.0); Platelet Count 482 K/mm3 (150-450); RBC Distribution Width CV 13.9 % (11.6-14.6); RBC Distribution Width SD 44.6 fl (35.1-43.9); Red Blood Count 3.98 M/mm3 (4.2-5.4); White Blood Count 8.2 K/mm3 (4.4-11.0)
[2024-09-28 07:19] LABS: Anion Gap 10 (5-15); BUN 14 mg/dL (4-19); BUN/Creat Ratio 21.7 RATIO (10-20); Calcium,Total 8.9 mg/dL (7.6-11.0); Carbon Dioxide 24.9 mmol/L (21.0-32.0); Chloride 104 mmol/L (98-108); Estimated Creatinine Clearance 52.58 ml/min (50-250); Glucose 112 mg/dL (70-99); Potassium 4.0 mmol/L (3.3-5.1)
[2024-09-28 07:42] VITALS: O2SAT 93
--- NOTE | 2024-09-28 07:54 | PN.HOSP_ITS ---
Reason for Visit Reason for Visit: Diagnoses Lyme disease, unspecified (09/27/24) Weakness (09/27/24) Objective Data Objective Data Vital Signs: Vital Signs Temp Pulse Resp BP Pulse Ox O2 Del Method 98.6 F 74 18 119/83 H 93 Room Air 09/28/24 04:11 09/28/24 04:11 09/28/24 04:11 09/28/24 04:11 09/28/24 07:42 09/28/24 07:42 Oxygen Delivery Method Room Air Weight: 56.835 kg Body Mass Index (BMI) 22.1 Intake & Output: Intake and Output for Last 24 Hours 09/26/24 09/27/24 09/28/24 23:59 23:59 23:59 Intake Total 1300 / 1300 600 / 600 Balance 1300 / 1300 600 / 600 Lab / Micro Data 09/28/24 06:10 09/28/24 06:10 Labs: Laboratory Results - last 24 hr 09/27/24 13:30: WBC 7.9, RBC 4.43, Hgb 12.4, Hct 38.9, MCV 87.8, MCH 28.0, MCHC 31.9 L, RDW Std Deviation 44.7 H, RDW Coeff of Tasha 13.9, Plt Count 518 H, MPV 8.8, Immature Gran % (Auto) 2.800 H, Neut % (Auto) 62.3, Lymph % (Auto) 21.6, [place] % (Auto) 9.0, Eos % (Auto) 3.2, Baso % (Auto) 1.1 H, Absolute Neuts (auto) 4.9, Absolute Lymphs (auto) 1.71, Nucleated RBC % 0, Sodium 139, Potassium 4.4, Chloride 101, Carbon Dioxide 25.9, Anion Gap 12, BUN 15, Creatinine 0.62 L, Est GFR (MDRD) Non-Af 95, BUN/Creatinine Ratio 24.8 H, Glucose 121 H, Calcium 9.7, T roponin T High Sens 10 D 09/27/24 15:55: Iron 25 L, TIBC 319, Iron Saturation 8.0 L, Unsaturated IBC 294, Ferritin 54, Troponin T Hi Sens 2 Hr 6, Vitamin B12 1633 H 09/27/24 18:10: Troponin T Hi Sens 4Hr 7 07/01/25 06:10: WBC 8.2, RBC 3.98 L, Hgb 11.2 L, Hct 34.9 L, MCV 87.7, MCH 28.1, MCHC 32.1, RDW Std Deviation 44.6 H, RDW Coeff of Tasha 13.9, Plt Count 482 H, MPV 9.0, Sodium 139, Potassium 4.0, Chloride 104, Carbon Dioxide 24.9, Anion Gap 10, BUN 14, Creatinine 0.64 L, Estim Creat Clear Calc 52.58, Est GFR (MDRD) Non-Af 94, BUN/Creatinine Ratio 21.7 H, Glucose 112 H, Calcium 8.9 Assessment & Plan Assessment/Plan (1) Generalized weakness: (2) Lyme disease: PLAN: Plan Patient is a 73-year-old female who presented to [facility] on 09/27/2024 with worsening weakness and recent Lyme diagnosis. 1. Worsening generalized weakness with reported recent Lyme disease diagnosis ? Admit under observation status to [facility] with telemetry. PT/OT/case management consulted. Lives at home with sister, typically has good functional status at baseline. Reportedly had Lyme testing drawn on Sunday 09/24 by PCP that showed a positive result on 09/25. Patient has no overt manifestations of disseminated Lyme disease at this time. Neurologically intact. EKG with normal sinus rhythm, no VT prolongation or other abnormalities. No joint swelling, erythema or tenderness to palpation noted throughout. No rashes noted. Patient denies known tick bite. Given her reported lack of improvement, will opt to treat with IV doxycycline for now and monitor cardiac telemetry overnight. If patient remains stable tomorrow, low threshold to transition back to p.o. doxycycline. Can consider sending Lyme disease testing here but discussed with lab and this will take several days to result. Patient would prefer home as opposed to SNF placement on discharge. Appreciate therapy recommendations. 2. Mild normocytic anemia ? Hemoglobin 12.4, MCV 87 on admit. Hemoglobin was 11.5 on 09/20. Will send iron studies with ferritin, folate and vitamin B12 studies for further evaluation. Notably was given 1 L of IV fluids in the ED. Follow-up a.m. CBC. DVT prophylaxis: Lovenox CODE STATUS: Full code, verified Expected disposition: Likely home with [facility], 1 to 2 days Total clinical time spent by myself addressing the patient's medical issues, reviewing all the data, and collaborating with patient's care team: 55 minutes.
[2024-09-28 08:00] VITALS: BP 117/72; PULSE 70; RESP 18; TEMP 36.6; O2SAT 98
[2024-09-28] MEDS: Doxycycline 100 MG in 0.9% Normal Saline (250mL Bag) 250 ML 250 MG IV (08:58)
[2024-09-28] MEDS: 0.9% Saline Lock 10 ML Syringe IV (08:58)
--- NOTE | 2024-09-28 10:51 | DS.PCM_ITS ---
Providers Date of Admission: 09/27/24 Date of Discharge: 09/28/24 Primary Care Physician: Dr. Stefan Tobias MD Reason For Visit: WEAKNESS W/ RECENT LYME DX Diagnosis Discharge Diagnosis (1) Generalized weakness: Status: Acute Code(s): R53.1 - Weakness (2) Lyme disease: Status: Acute Code(s): A69.20 - Lyme disease, unspecified Plan Patient is a 73-year-old female who presented to [facility] on 09/27/[facility]24 with worsening weakness and recent Lyme diagnosis. 1. Physical deconditioning ? Secondary to progressive generalized weakness following recent Lyme diagnosis requested for PT OT eval and social media executive to assist with discharge planning. Patient clinical condition however did improve regarding her weakness and she requested to be discharged home a day following her admission 2. Anemia ? Secondary to chronic disorder monitoring H&H and transfuse if patient becomes symptomatic or hemoglobin falls below 7 3. DVT prophylaxis ? Subcu Lovenox Medications at Discharge Home Medications ascorbate calcium (vitamin C) 500 mg tablet 500 mg PO QDAY 09/27/24 aspirin 81 mg tablet,delayed release (Adult Aspirin Regimen) 81 mg PO DAILY 09/27/24 doxycycline hyclate 100 mg capsule 100 mg PO BID 09/27/24 multivitamin (Daily Multi-Vitamin tablet) 1 tab PO DAILY 09/27/24 ondansetron 4 mg disintegrating tablet 4 mg PO Q8H PRN PRN nausea 09/27/24 selenium 200 mcg capsule 200 mcg PO DAILY 09/27/24 zinc acetate 25 mg (zinc) capsule (Galzin) 25 mg PO QDAY 09/27/24 Hospital Course Summary of Care Provided Minutes Spent on Discharge: 32 Physical Exam Narrative GENERAL: cooperative HEENT: Atraumatic; normocephalic EYES; Anicteric, Normal Conjunctiva NECK; supple, normal thyroid, RESPIRATORY: Diminished to auscultation CARDIOVASCULAR: Regular S1 S2, GI: soft, normoactive bowel sounds, : No Renal angle tenderness; EXTREMITIES: No edema, no clubbing, MUSCULOSKELETAL: no muscle wasting NEURO: Awake; no lateralizing signs. SKIN: No Rash PSYCH; Flat affect Weight / BMI Weight Weight: 56.835 kg Body Mass Index (BMI) 22.1 ABG / Lab / Microbiology Data 09/28/24 06:10 09/28/24 06:10 Laboratory: Laboratory Results - last 24 hr 09/27/24 13:30: WBC 7.9, RBC 4.43, Hgb 12.4, Hct 38.9, MCV 87.8, MCH 28.0, MCHC 31.9 L, RDW Std Deviation 44.7 H, RDW Coeff of Tasha 13.9, Plt Count 518 H, MPV 8.8, Immature Gran % (Auto) 2.800 H, Neut % (Auto) 62.3, Lymph % (Auto) 21.6, Martin % (Auto) 9.0, Eos % (Auto) 3.2, Baso % (Auto) 1.1 H, Absolute Neuts (auto) 4.9, Absolute Lymphs (auto) 1.71, Nucleated RBC % 0, Sodium 139, Potassium 4.4, Chloride 101, Carbon Dioxide 25.9, Anion Gap 12, BUN 15, Creatinine 0.62 L, Est GFR (MDRD) Non-Af 95, BUN/Creatinine Ratio 24.8 H, Glucose 121 H, Calcium 9.7, T roponin T High Sens 10 D 09/27/24 15:55: Iron 25 L, TIBC 319, Iron Saturation 8.0 L, Unsaturated IBC 294, Ferritin 54, Troponin T Hi Sens 2 Hr 6, Vitamin B12 1633 H 09/27/24 18:10: Troponin T Hi Sens 4Hr 7 09/28/24 06:10: WBC 8.2, RBC 3.98 L, Hgb 11.2 L, Hct 34.9 L, MCV 87.7, MCH 28.1, MCHC 32.1, RDW Std Deviation 44.6 H, RDW Coeff of Tasha 13.9, Plt Count 482 H, MPV 9.0, Sodium 139, Potassium 4.0, Chloride 104, Carbon Dioxide 24.9, Anion Gap 10, BUN 14, Creatinine 0.64 L, Estim Creat Clear Calc 52.58, Est GFR (MDRD) Non-Af 94, BUN/Creatinine Ratio 21.7 H, Glucose 112 H, Calcium 8.9 D/C Instructions Discharge Diet: No restrictions Discharge Activity: Return to Normal Activity Call your doctor if you observe: Fever of 101 or Higher, Shortness of breath, Fainting spells and Chest pain DC O2, CPAP, BIPAP Needs Home O2 Discharge instructions: No Meaningful Use Info Meaningful Use Meaningful Use Diagnoses (Choose all that apply): None applicable Ischemic Stroke Statin Dosing Therapy Reference: STATIN DOSE THERAPY REFERENCE: * Patients > 75 years receive moderate or high dose statin therapy. * Patients 75 years or YOUNGER should receive HIGH intensity statin dose unless contraindicated. You will be required to document reason for non-treatment if statin daily dose does not meet guidelines. HIGH DOSE STATIN THERAPY DAILY Atorvastatin > than or = to 40 mg Rosuvastatin > than or = to 20 mg Amlodipine + Atorvastatin > than or = to 2.5/40 mg Ezetimibe + Simvastatin 10/80 mg Simvastatin 80mg Discharge Plan Admission Admit Date/Time: 09/27/24 14:45 Attending Provider: Cody Hua Primary Care Provider: Stefan Tobias Consulting Providers: Azam Russell Discharge Orders/Prescriptions Prescriptions: Continued doxycycline hyclate 100 mg capsule 100 mg PO BID ondansetron 4 mg tablet,disintegrating 4 mg PO Q8H PRN PRN (Reason: nausea) ascorbate calcium (vitamin C) 500 mg tablet 500 mg PO QDAY Galzin 25 mg (zinc) capsule 25 mg PO QDAY selenium 200 mcg capsule 200 mcg PO DAILY multivitamin [Daily Multi-Vitamin] Tablet 1 tab PO DAILY aspirin [Adult Aspirin Regimen] 81 mg tablet,delayed release (DR/EC) 81 mg PO DAILY Referrals / Follow Up: Stefan Tobias MD [Primary Care Provider] - Within 1 Week Disposition Disposition (needs filled in before D/C Order can be placed): Home Health Service Charges/Coding Visit Charges Inpatient E&M: 74916 Disch Hosp >30min
--- NOTE | 2024-09-28 11:14 | CASEMGMT ---
DANNY CM into pt room, pt lying in bed in no distress. Pt states she feels her strength is better and denies any therapy at home for this. Pt states she has a cane and walker available if needed. Pt denies any homegoing needs at this time.
--- NOTE | 2024-09-28 11:41 | PHA.DC.MR.R ---
[facility] has performed discharge medication reconciliation for this patient. The patient's discharge medication list was reviewed for discrepancies and discrepancies were resolved. Medications at Discharge Home Medications ascorbate calcium (vitamin C) 500 mg tablet 500 mg PO QDAY 09/27/24 aspirin 81 mg tablet,delayed release (Adult Aspirin Regimen) 81 mg PO DAILY 09/27/24 doxycycline hyclate 100 mg capsule 100 mg PO BID 09/27/24 multivitamin (Daily Multi-Vitamin tablet) 1 tab PO DAILY 09/27/24 ondansetron 4 mg disintegrating tablet 4 mg PO Q8H PRN PRN nausea 09/27/24 selenium 200 mcg capsule 200 mcg PO DAILY 09/27/24 zinc acetate 25 mg (zinc) capsule (Galzin) 25 mg PO QDAY 09/27/24
[2024-09-29 15:08] LABS: Folate, Hemolysate Test 478.0 ng/mL (Not Estab.); Folate, RBC (Hct) Test 37.1 % (34.0-46.6); Folates, RBC Test 1288 ng/mL (>498)
== END 2024-09-28 11:39 | disposition home or self-care (01) ==
LOC: ED 14:00 → MS3 15:21
PROVIDERS: Admitting Provider Hospitalist; Emergency Provider Emergency Medicine; PCP Family Medicine; Visit Provider Internal Medicine
DX: A69.20 Lyme disease, unspecified (principal); Z79.82 Long term (current) use of aspirin; Z79.899 Other long term (current) drug therapy; D63.8 Anemia in other chronic diseases classified elsewhere
CPT/HCPCS: 36415; 80048; 82607; 82728; 82747; 83540; 83550; 84484; 85014; 85025; 85027; 93005; 94668; 96365; 96366; 96367; 99221; 99283; A4216; G0378; J0696